=== PATIENT | female | born 1955 | race Caucasian/White ===

== ENCOUNTER 2018-11-11 09:16 | Observation (INO) | payer OTHER ==
[2018-11-11] MEDS ORDERED: DIPHENHYDRAMINE 25 MG TAB/CAP PO PRN (10:44)
[2018-11-11] MEDS ORDERED: LOPERAMIDE HCL 2 MG CAPSULE PO PRN (10:44)
[2018-11-11] MEDS ORDERED: ONDANSETRON 4 MG/2 ML VIAL IV PRN (10:44)
[2018-11-11] MEDS ORDERED: POLYETHYL GLY 3350 17 GM/DOSE PO PRN (10:44)
[2018-11-11] MEDS ORDERED: ACETAMINOPHEN 325 MG TABLET PO PRN (10:44)
[2018-11-11 12:18] LABS: Protime INR 1.02
[2018-11-11 12:41] LABS: Albumin 4.5 g/dL (3.4-5.0); Bilirubin Direct 0.1 mg/dL (0-0.2); Bilirubin Total 0.4 mg/dL (0.2-1.0); Magnesium 2.2 mg/dL (1.8-2.4); Phosphorus 3.4 mg/dL (2.5-4.9); Potassium 3.7 mmol/L (3.5-5.1); Protein, Total 8.2 g/dL (6.4-8.2); Thyroid Stimulating Hormone 2.58 uIU/mL (0.360-3.740)
[2018-11-11] MEDS: clonazePAM 0.5 MG TAB PO PRN (12:41)
[2018-11-11 14:40] LABS: Urine Appearance CLEAR; Urine Bilirubin NEGATIVE (NEG); Urine Blood NEGATIVE (NEG); Urine Color YELLOW; Urine Glucose NEGATIVE (NEG); Urine Protein NEGATIVE (NEG); Urine Specific Gravity 1.015 (1.005-1.030); Urine Urobilinogen 0.2 mg/dL (0.2-1.0); Urine pH 5.5 (5.0-7.0)
[2018-11-11 14:47] LABS: Urine Microscopic Reflex ORDER UMIC
[2018-11-11 15:00] LABS: Urine Bacteria <20 /HPF (<20); Urine Culture Reflex Order NOT NEEDED; Urine RBC <5 /HPF (NONE SEEN)
--- NOTE | 2018-11-11 15:06 | RAD REPORT ---
EXAM DESCRIPTION: Leo Mccollum (2 Views)11/11/2018 2:38 pm CLINICAL HISTORY: Chest pain COMPARISON: 2017 FINDINGS: The lungs appear clear of acute infiltrate. The heart is normal size IMPRESSION: No acute abnormalities displayed
[2018-11-11 15:45] LABS: Absolute Lymphocytes (CBC) 1.4 K/uL (0.7-4.9); Basophils % 0.7 % (0-1.3); Eosinophils % 0.7 % (0-4.4); Hematocrit 37.7 % (36.0-45.0); Lymphocytes % 24.9 % (15.3-44.8); MPV 8.1 fL (7.6-11.3); Monocytes % 7.3 % (3.3-12.3); RBC Red Blood Cell Count 4.32 M/uL (3.86-4.86)
[2018-11-11] MEDS ORDERED: ENOXAPARIN 40 MG/0.4 ML SQ SCH (17:00)
[2018-11-11] MEDS ORDERED: POTASSIUM CL SA 10 MEQ TAB PO ONE (21:00)
[2018-11-12 04:36] LABS: Absolute Lymphocytes (CBC) 2.1 K/uL (0.7-4.9); Basophils % 0.6 % (0-1.3); Hematocrit 36.2 % (36.0-45.0); Lymphocytes % 37.7 % (15.3-44.8); MPV 8.3 fL (7.6-11.3); Monocytes % 9.6 % (3.3-12.3); RBC Red Blood Cell Count 4.17 M/uL (3.86-4.86)
[2018-11-12 04:45] LABS: BUN Blood Urea Nitrogen 16 mg/dL (7-18); Bicarbonate 28 mmol/L (21-32); Glucose Level 94 mg/dL (74-106); Potassium 3.9 mmol/L (3.5-5.1); Sodium Level 141 mmol/L (136-145)
--- NOTE | 2018-11-12 07:38 | EKG ---
Test Date: 2018-11-11 Test Time: 13:33:39 Credit Collections Clerk: RUTH MEASUREMENT RESULTS: Intervals: Rate: 76 UT: 164 QRSD: 102 QT: 414 QTc: 465 [place]: P: 43 UT: 164 QRS: 48 T: 35 INTERPRETIVE STATEMENTS: Normal sinus rhythm Normal ECG Compared to ECG 01/29/2017 23:38:58 Ventricular premature complex(es) no longer present Electronically Signed On 11-12-18 07:36:03 CDT by Walter Yanes
[2018-11-12] MEDS ORDERED: PNEUMOCOCCAL VACCINE 0.5 ML IMVAC ONE (08:00)
[2018-11-12] MEDS: clonazePAM 0.5 MG TAB PO PRN (08:22)
[2018-11-12] MEDS ORDERED: REGADENOSON 0.4 MG/5 ML SYR IV ONE (08:52)
--- NOTE | 2018-11-12 10:15 | RAD REPORT ---
EXAM DESCRIPTION: NM - Rest Stress Cardiac Imaging - 11/12/2018 10:06 am CLINICAL HISTORY: Chest pain COMPARISON: None. TECHNIQUE: The patient was administered approximately 10 mCi of Tc 99m Sestamibi prior to resting SP ECT imaging of the heart. The patient was then administered approximately 30 mCi of Tc 99m Sestamibi following exercise or pharmacologic stress. Multiplanar SPECT images were reviewed. FINDINGS: The end diastolic volume is 106 ml, the end systolic volume is 45 ml, and the ejection fra ction is 58 %. No stress-induced ischemic changes are present. Moderate diminished activity along the inferior wall not clearly different between rest and stress imaging. This is favored to be attenuation artifact fro m the diaphragm rather than scarring. Correlation can be made with history an EKG findings. IMPRESSION: No stress-induced ischemia. Moderate diminished activity along the inferior wall does not change between rest and stress imaging. This is favored to be attenuation artifact rather than scarring. Ventricular volumes and ejection fraction are normal range.
--- NOTE | 2018-11-12 15:25 | TREADPHA ---
DX: CHEST PAIN Date of Study: 11/12/18 Ht: 5 10 Wt: 262 lb 8 oz Consulting Physician: MARIE MEDICATIONS: TYLENOL, KLONOPIN, LOVENOX, ZOFRAN, PROTONIX HISTORY: 62 YEAR OLD FEMALE HERE FOR CHEST PAIN. HISTORY OF GERD. PHYSICIAL EXAMINATION: RESTING B.P.: 121/109 RESTING H.R.: 85 RESTING EKG: NORMAL. PROTOCOL: LEXISCAN EXERCISE TIME: 3:30 B.P. AT [place] STRESS: 157/103 151/97 IMPRESSION: LEXISCAN STRESS TEST PERFORMED. CARDIOLITE INJECTED PER PROTOCOL. NO ARRHYTHMIAS NOTED. DENIES ANY CHEST PAIN. SEE NUCLEAR MEDICINE REPORT.
--- NOTE | 2018-11-12 15:34 | ECHO ---
HEIGHT: 5 ft 10 in WEIGHT: 262 lb 8 oz DATE OF STUDY: 11/12/[address]: Pablito Atkinson MD 2-DIMENSIONAL: YES M.MODE: YES DOPPLER: YES COLOR FLOW: YES TDS: NO PORTABLE: NO DEFINITY: NO BUBBLE STUDY: NO DIAGNOSIS: CHEST PAIN CARDIAC HISTORY: CATHERIZATION: NO SURGERY: NO PROSTHETIC VALVE: NO PACEMAKER: NO MEASUREMENTS (cm) DIASTOLIC (NORMALS) SYSTOLIC (NORMALS) IVSd 1.1 (0.6-1.2) LA Diam 2.8 (1.9-4.0) LVEF 52% LVIDd 4.3 (3.5-5.7) LVIDs 3.2 (2.0-3.5) %FS 26% LVPWd 1.2 (0.6-1.2) Ao Diam 2.5 (2.0-3.7) 2 DIMENSIONAL ASSESSMENT: RIGHT ATRIUM: NORMAL LEFT ATRIUM: NORMAL RIGHT VENTRICLE: NORMAL LEFT VENTRICLE: NORMAL TRICUSPID VALVE: NORMAL MITRAL VALVE: NORMAL PULMONIC VALVE: NORMAL AORTIC VALVE: NORMAL PERICARDIAL EFFUSION: NONE AORTIC ROOT: NORMAL LEFT VENTRICULAR WALL MOTION: NORMAL. DOPPLER/COLOR FLOW: NORMAL. COMMENTS: NORMAL 2D ECHO WITH DOPPLER. NO WALL MOTION ABNORMALITY. NO EFFUSION. TECHNOLOGIST: BEV CAMPOS
--- NOTE | 2018-11-12 21:01 | P.DS ---
Admission Date: 11/11/18 Discharge Date: 11/12/18 Disposition: ROUTINE DISCHARGE Hospital Course: INDIRA IS DOING A LOT BETTER. HER PRICKLY CHEST FEELINGS, DIZZINESS, NOT BEING ABLE TO BREATH ALL CAN BE FROM ANXIETY. SHE WILL DO 24 HOUR URINE AND DLELIER. SHE IS STABLE FOR DC ON LEXAPRO AND KLONIPIN. SHE DID REALLY GREAT ON KLONOPIN. HER ST TEST IS NEGATIVE, CE ARE NEGATIVE AND SO IS ECHO HER D DIMER IS NORMAL. Vital Signs/Physical Exam: Temp Pulse Resp BP Pulse Ox 98.0 F 77 18 134/81 98 11/12/18 12:00 11/12/18 12:00 11/12/18 12:00 11/12/18 12:00 11/12/18 12:00 Laboratory Data at Discharge: WBC 5.6 K/uL (4.3-10.9) 11/12/18 04:01 Hgb 12.2 g/dL (12.0-15.0) 11/12/18 04:01 Hct 36.2 % (36.0-45.0) 11/12/18 04:01 Plt Count 278 K/uL (152-406) 11/12/18 04:01 PT 12.0 SECONDS (9.5-12.5) 11/11/18 11:45 INR 1.02 11/11/18 11:45 APTT 31.1 SECONDS (24.3-36.9) 11/11/18 11:45 Sodium 141 mmol/L (136-145) 11/12/18 04:01 Potassium 3.9 mmol/L (3.5-5.1) 11/12/18 04:01 BUN 16 mg/dL (7-18) 11/12/18 04:01 Creatinine 0.64 mg/dL (0.55-1.3) 11/12/18 04:01 Glucose 94 mg/dL (74-106) 11/12/18 04:01 Phosphorus 3.4 mg/dL (2.5-4.9) 11/11/18 11:45 Magnesium 2.2 mg/dL (1.8-2.4) 11/11/18 11:45 Total Bilirubin 0.4 mg/dL (0.2-1.0) 11/11/18 11:45 AST 14 U/L (15-37) L 11/11/18 11:45 ALT 27 U/L (12-78) 11/11/18 11:45 Alkaline Phosphatase 84 U/L (45-117) 11/11/18 11:45 Troponin I < 0.02 ng/mL (0.0-0.045) 11/12/18 04:01 Home Medications: L. Acidophilus/Dig Enz Cmb 5 [Probiotic-Digestive Enzymes] 1 cap PO DAILY Pantoprazole [Protonix Tab*] 40 mg PO DAILY 11/11/18 Simethicone [Gas Relief] 180 mg PO ONCE PRN MDD 360 11/11/18 Escitalopram [Lexapro] 10 mg PO DAILY #90 tab 11/12/18 clonazePAM [Klonopin] 0.5 mg PO BID #30 tab 11/12/18 New Medications: clonazePAM [Klonopin] 0.5 mg PO BID #30 tab Escitalopram [Lexapro] 10 mg PO DAILY #90 tab Diet: AHA
--- NOTE | 2018-11-13 06:26 | CON ---
Date of Consultation: 11/12/2018 The patient was admitted on 11/11/2018. I saw the patient on 11/12/2018. Reason For Consultation: Chest pain. History Of Present Illness: Ms. Suarez is a 63-year-old white woman, has a history of anxiety disorder . She has a history of sleep apnea. Came in with an episode of palpitations that woke her up, laste d about 2 hours with some atypical chest pain. Has also been having episodes of dizziness. Denied a ny PND, orthopnea, or pedal edema. Denied any syncope. Denied any nausea, vomiting, or diaphoresis. Denied any fever or chills. She denied any excessive use of caffeine. She denied use of diet pill s or allergy pills. By the time I saw her, she was already ruled out for an [place]. Past Medical History: Otherwise negative. Allergies: MULTIPLE AND INCLUDE CODEINE, DIOVAN, STADOL, PHENERGAN, SULFA, AND TALWIN. Medications: She does not take any medications at home. Review of Systems: Negative. Social History: Negative for tobacco, alcohol, or drugs. Family History: Negative. Physical Examination: Vital Signs: Stable. She was afebrile. HEENT: Negative. Neck: Supple with no bruit. Chest: Clear to auscultation and percussion. Cardiac: Revealed a regular rhythm and rate without any murmurs, gallops, or rubs. Abdomen: Benign. Extremities: Revealed no clubbing, cyanosis, or edema. Diagnostic Data: Pretty unremarkable. Her chest x-ray was negative. EKG was negative. Troponin wa s negative. Impression And Plan: 1.Atypical chest pain. 2.Palpitations. 3.Dizziness, probably secondary to benign positional vertigo. 4.Anxiety. An echocardiogram and a Lexiscan are pending for today. Do not think her chest pain is cardiac. Her palpitations need to be evaluated further. It may not be unreasonable to have her wear an event monitor as an outpatient. I will discuss the case further with Dr. Ng. We will see brigitte mari her echo and Lexiscan show before she goes home. BABAR/MODL Voice ID: [id number] Report ID: [id number]
[2018-11-13] MEDS ORDERED: PANTOPRAZOLE 40MG TABLET PO SCH (06:30)
== END 2018-11-12 14:24 | disposition home or self-care (01) ==
LOC: 2ND 10:01
PROVIDERS: ADMIT Internal Medicine; ATTEND Internal Medicine
DX: R07.89 Other chest pain (principal); R00.2 Palpitations; R42 Dizziness and giddiness; F41.9 Anxiety disorder, unspecified; G47.30 Sleep apnea, unspecified; Z23 Encounter for immunization
CPT/HCPCS: 93005; 93017; 93306; 85025 ×2; 80048 ×2; 36415 ×2; 83735; 84100; 85610; 85379; 80076; 85730; 84443; 84484 ×3; 82607; 82306; 83880; 71046; 90471; 90670; 78452; J2785; A9500; G0379; G0378; 81003; 81015; G0009; J1650

== ENCOUNTER 2019-01-14 07:47 | Observation (INO) | payer OTHER ==
[2019-01-14 08:09] LABS: Basophils % 0.9 % (0-1.3); Hematocrit 37.4 % (36.0-45.0); Lymphocytes % 43.1 % (15.3-44.8); MPV 8.5 fL (7.6-11.3); RBC Red Blood Cell Count 4.36 M/uL (3.86-4.86)
[2019-01-14 08:13] LABS: Protime INR 1.08
[2019-01-14] MEDS ORDERED: LORazepam 2 MG/ML VIAL ONE (08:15)
[2019-01-14] MEDS ORDERED: NA CHLORIDE 0.9% 1,000 ML ONE (08:15)
[2019-01-14 08:33] LABS: ALT/SGPT 21 U/L (12-78); AST/SGOT 9 U/L (15-37); Albumin 4.3 g/dL (3.4-5.0); Alkaline Phosphatase 69 U/L (45-117); BUN Blood Urea Nitrogen 12 mg/dL (7-18); Bicarbonate 25 mmol/L (21-32); Bilirubin Direct 0.2 mg/dL (0-0.2); Bilirubin Total 0.5 mg/dL (0.2-1.0); Glucose Level 89 mg/dL (74-106); Magnesium 2.1 mg/dL (1.8-2.4); NT PRO-BNP 18 pg/mL (<125); Potassium 3.3 mmol/L (3.5-5.1); Protein, Total 7.8 g/dL (6.4-8.2); Sodium Level 141 mmol/L (136-145); Troponin (Emerg Dept Use Only) < 0.02 ng/mL (0.0-0.045)
--- NOTE | 2019-01-14 09:01 | EDPHYS ---
Physician Documentation [facility] Name: Alessandra Suarez Age: 63 yrs Sex: Female : 1955 Arrival Date: 01/14/2019 Time: 07:48 Bed 7 Private MD: Surendra Ng V ED Physician Alyce Seay HPI: 01/14 08:57 This 63 yrs old Female presents to ER via Ambulatory with complaints of Chest ma2 Pain, Shortness Of Breath. 08:57 The patient or guardian reports chest pain that is located primarily in the substernal ma2 area. Onset: suddenly, 1 day(s) ago. Associated signs and symptoms: Pertinent negatives: cough, dizziness, lower extremity pain, lower extremity swelling. The chest pain is described as aching. Severity of pain: At its worst the pain was moderate in the emergency department the pain has resolved. Historical: - Allergies: 07:56 Codeine; ss 07:56 Darvon; ss 07:56 Phenergan; ss 07:56 Stadol; ss 07:56 Sulfa (Sulfonamide Antibiotics); ss 07:56 Talwin; ss 07:56 teramycin; ss - Home Meds: 18:10 alprazolam 0.25 mg Oral TbDL 1 tab as needed [Active]; bp - PMHx: 07:56 Anxiety; ss - PSHx: 07:56 ; Appendectomy; ss - Immunization history:: Adult Immunizations up to date. - Social history:: Smoking status: Patient/guardian denies using tobacco, Patient/guardian denies using alcohol, street drugs, The patient lives with family. - Ebola Screening: : Patient denies exposure to infectious person Patient denies travel to an Ebola-affected area in the 21 days before illness onset. - Family history:: not pertinent. ROS: 08:57 Constitutional: Negative for fever, chills, and weight loss. ma2 08:57 All other systems are negative. Exam: 08:57 Constitutional: This is a well developed, well nourished patient who is awake, alert, ma2 and in no acute distress. Chest/axilla: Normal chest wall appearance and motion. Nontender with no deformity. No lesions are appreciated. Cardiovascular: Regular rate and rhythm with a normal S1 and S2. No gallops, murmurs, or rubs. Normal PMI, no JVD. No pulse deficits. Respiratory: Lungs have equal breath sounds bilaterally, clear to auscultation and percussion. No rales, rhonchi or wheezes noted. No increased work of breathing, no retractions or nasal flaring. Abdomen/GI: Soft, non-tender, with normal bowel sounds. No distension or tympany. No guarding or rebound. No evidence of tenderness throughout. Vital Signs: 07:56 BP 156 / 93; Pulse 72; Resp 16; Pulse Ox 100% on R/A; Weight 111.58 kg; Height 5 ft. 10 ss in. (177.80 cm); Pain 0/10; 08:56 BP 126 / 91; Pulse 64; Resp 17; Pulse Ox 98% ; bp 10:04 BP 136 / 86; Pulse 71; Resp 14; Pulse Ox 97% ; bp 10:49 Temp 98(O); bp 11:00 BP 122 / 79; Pulse 68; Resp 16; Pulse Ox 99% ; bp 12:00 BP 121 / 84; Pulse 65; Resp 18; Pulse Ox 99% ; bp 13:00 BP 138 / 82; Pulse 65; Resp 17; Pulse Ox 100% ; bp 14:00 BP 138 / 86; Pulse 73; Resp 16; Pulse Ox 100% ; bp 15:00 BP 137 / 90; Pulse 69; Resp 16; Pulse Ox 96% ; bp 16:00 BP 108 / 82; Pulse 69; Resp 14; Pulse Ox 97% ; bp 17:00 BP 126 / 73; Pulse 83; Resp 16; Pulse Ox 97% ; bp 18:28 BP 133 / 86; Pulse 73; Resp 17; Temp 98; Pulse Ox 100% ; bp 07:56 Body Mass Index 35.30 (111.58 kg, 177.80 cm) ss MDM: 07:55 Patient medically screened. ma2 08:57 Differential diagnosis: abnormal EKG, acute pericarditis, anxiety, coronary artery ma2 disease. Data reviewed: vital signs, nurses notes. Counseling: I had a detailed discussion with the patient and/or guardian regarding: the historical points, exam findings, and any diagnostic results supporting the discharge/admit diagnosis, the presence of at least one elevated blood pressure reading (>120/80) during this emergency department visit, patient request to be transferred to [place], will initiate non emergency transfer. 17:43 ED course: dr. ng advise for admission as per patient request both [facility] and [address] denied d/t no capacity and was waiting on [facility] as they accepted but waiting for final bed.. now she agree to be admitted here . 01/14 07:56 Order name: Basic Metabolic Panel; Complete Time: 08:47 ma2 01/14 07:56 Order name: CBC with Diff; Complete Time: 08:47 ma2 01/14 07:56 Order name: LFT's; Complete Time: 08:47 ma2 01/14 07:56 Order name: Magnesium; Complete Time: 08:47 ma2 01/14 07:56 Order name: NT PRO-BNP; Complete Time: 08:47 ma2 01/14 07:56 Order name: PT-INR; Complete Time: 08:47 ma2 01/14 07:56 Order name: Troponin (emerg Dept Use Only); Complete Time: 08:47 ma2 01/14 17:54 Order name: Basic Metabolic Panel EDKS 01/14 17:54 Order name: Basic Metabolic Panel [facility] 01/14 17:54 Order name: CBC with Automated Diff EDKS 01/14 17:54 Order name: CBC with Automated Diff EDMS 01/14 17:54 Order name: Troponin I EDKS 01/14 17:54 Order name: Troponin I EDKS 01/14 17:54 Order name: Troponin I [facility] 01/14 07:56 Order name: EKG; Complete Time: 07:57 ma2 01/14 07:56 Order name: Cardiac monitoring; Complete Time: 08:10 ma2 01/14 07:56 Order name: EKG - Nurse/Tech; Complete Time: 08:10 ma2 01/14 14:10 Order name: Diet Regular; Complete Time: 14:10 kj1 01/14 14:11 Order name: Diet Ada 1800 Cyrus; Complete Time: 14:11 jl7 01/14 17:52 Order name: Diet Ada 1800 Cyrus; Complete Time: 17:52 bp 01/14 17:54 Order name: Regular EDMS 01/14 17:54 Order name: EKG Electrocardiogram EDKS 01/14 17:54 Order name: EKG Electrocardiogram EDKS 01/14 17:54 Order name: EKG Electrocardiogram EDKS 01/14 17:54 Order name: EKG Electrocardiogram [facility] 01/14 17:59 Order name: Urine Dipstick--Ancillary (enter results) 01/14 18:25 Order name: Urine Dipstick-Ancillary [facility] 01/14 07:56 Order name: IV Saline Lock; Complete Time: 08:03 [facility] 01/14 07:56 Order name: Labs collected and sent; Complete Time: 08:10 [facility] 01/14 07:56 Order name: O2 Per Protocol; Complete Time: 08:10 [facility] 01/14 07:56 Order name: O2 Sat Monitoring; Complete Time: 08:10 [facility] 01/14 17:53 Order name: Urine Dipstick-Ancillary (obtain specimen); Complete Time: 17:55 bp Administered Medications: 08:10 Drug: Ativan 1 mg Route: IVP; Site: left antecubital; bp 11:24 Follow up: Response: Anxiety decreased bp 08:10 Drug: NS 0.9% 1000 ml Route: IV; Rate: 1 bolus; Site: left antecubital; bp 09:30 Follow up: IV Status: Completed infusion; IV Intake: 1000ml bp Disposition: 01/14/19 17:45 Hospitalization ordered by Surendra Ng for Observation. Preliminary diagnosis is Chest pain, unspecified. - Bed requested for Telemetry/MedSurg (observation). - Status is Observation. bp - Condition is Stable. - Problem is new. - Symptoms are unchanged. UTI on Admission? No Signatures: Dispatcher [facility] Leticia Louis RN RN dw Smirch, Shelby, RN RN ss Peltier, Brian, RN RN bp Alzahri, Mohammad, MD MD ma2 Corrections: (The following items were deleted from the chart) : 07:56 Chest Single View+RAD.RAD.BRZ ordered. [facility] 17:44 08:59 01/14/2019 08:59 Transfer ordered to [facility]. Diagnosis is ma2 Chest pain, unspecified. Reason for transfer: Higher level of care. Accepting physician is chest pain. Condition is Stable. Problem is new. Symptoms are unchanged. ma2 18:07 17:45 Hospitalization Ordered by Surendra Ng MD for Observation. Preliminary diagnosis dw is Chest pain, unspecified. Bed requested for Telemetry/MedSurg (observation). Status is Observation. Condition is Stable. Problem is new. Symptoms are unchanged. UTI on Admission? No. ma2 18:29 18:07 01/14/2019 17:45 Hospitalization Ordered by Surendra Ng MD for Observation. bp Preliminary diagnosis is Chest pain, unspecified. Bed requested for Telemetry/MedSurg (observation). Status is Observation. Condition is Stable. Problem is new. Symptoms are unchanged. UTI on Admission? No. dw
--- NOTE | 2019-01-14 09:01 | ER ---
Nurse's Notes [facility] Name: Alessandra Suarez Age: 63 yrs Sex: Female : 1955 Arrival Date: 01/14/2019 Time: 07:48 Bed 7 Private MD: Surendra Ng V Diagnosis: Chest pain, unspecified Presentation: 01/14 07:54 Presenting complaint: Patient states: Episodes of "racing heart" that began a few days ss ago and are becoming more frequent. Patient also c/o severe gassiness. Transition of care: patient was not received from another setting of care. Onset of symptoms is unknown. Risk Assessment: Do you want to hurt yourself or someone else? Patient reports no desire to harm self or others. Initial Sepsis Screen: Does the patient meet any 2 criteria? No. Patient's initial sepsis screen is negative. Does the patient have a suspected source of infection? No. Patient's initial sepsis screen is negative. Care prior to arrival: None. 07:54 Method Of Arrival: Ambulatory 07:54 Acuity: KRISTA 3 ss Triage Assessment: 08:00 General: Appears in no apparent distress. comfortable, obese, Behavior is cooperative, bp appropriate for age, anxious. Pain: Complains of pain in chest. EENT: No deficits noted. Neuro: No deficits noted. Cardiovascular: No deficits noted. Respiratory: No deficits noted. GI: No signs and/or symptoms were reported involving the gastrointestinal system. : No signs and/or symptoms were reported regarding the genitourinary system. Derm: No deficits noted. Musculoskeletal: No deficits noted. Historical: - Allergies: 07:56 Codeine; ss 07:56 Darvon; ss 07:56 Phenergan; ss 07:56 Stadol; ss 07:56 Sulfa (Sulfonamide Antibiotics); ss 07:56 Talwin; ss 07:56 teramycin; ss - Home Meds: 18:10 alprazolam 0.25 mg Oral TbDL 1 tab as needed [Active]; bp - PMHx: 07:56 Anxiety; ss - PSHx: 07:56 ; Appendectomy; ss - Immunization history:: Adult Immunizations up to date. - Social history:: Smoking status: Patient/guardian denies using tobacco, Patient/guardian denies using alcohol, street drugs, The patient lives with family. - Ebola Screening: : Patient denies exposure to infectious person Patient denies travel to an Ebola-affected area in the 21 days before illness onset. - Family history:: not pertinent. Screenin:56 Abuse screen: Denies threats or abuse. Denies injuries from another. Nutritional bp screening: No deficits noted. Tuberculosis screening: No symptoms or risk factors identified. Fall Risk None identified. Assessment: 07:56 General: SEE TRIAGE NOTE. bp 08:00 Pain: Pain does not radiate. Pain began suddenly. bp 08:56 Reassessment: ALL CURRENT ORDERS COMPLETED, RESULTS PENDING FOR DISPO. SR ON MONITOR. bp 10:05 Reassessment: [facility], SABIANISM RESPONSE PENDING. bp 10:51 Reassessment: AVE INFORMATION TO [facility] [facility] FROM [facility]. bp 11:23 Reassessment: [facility] ACCEPTING TRANSFER, BED ASSIGNMENT PENDING. bp 12:49 Reassessment: NO ACUTE S/S, VS STABLE ON MONITOR. NO BED ASSIGNMENT FOR TRANSFER AT THIS TIME. 14:00 Reassessment: Patient appears in no apparent distress at this time. Patient is alert, bp oriented x 3, equal unlabored respirations, skin warm/dry/pink. 15:00 Reassessment: PT AMBULATING UNIT, TRANSFER REMAINS IN PROCESS. bp 16:00 Reassessment: TRANSFER IN PROCESS, NO BED AVAILABLE AT THIS TIME. VS STABLE ON MONITOR. bp 17:30 Reassessment: DR NG AT B/S FOR C/S. PT AMENABLE TO ADMIT VS TRANSFER. PER DR NG, bp DR SALAZAR TO PERFORM ANGIO TOMORROW AND HIDA SCAN DURING ADMIT. Vital Signs: 07:56 BP 156 / 93; Pulse 72; Resp 16; Pulse Ox 100% on R/A; Weight 111.58 kg; Height 5 ft. 10 ss in. (177.80 cm); Pain 0/10; 08:56 BP 126 / 91; Pulse 64; Resp 17; Pulse Ox 98% ; bp 10:04 BP 136 / 86; Pulse 71; Resp 14; Pulse Ox 97% ; bp 10:49 Temp 98(O); bp 11:00 BP 122 / 79; Pulse 68; Resp 16; Pulse Ox 99% ; bp 12:00 BP 121 / 84; Pulse 65; Resp 18; Pulse Ox 99% ; bp 13:00 BP 138 / 82; Pulse 65; Resp 17; Pulse Ox 100% ; bp 14:00 BP 138 / 86; Pulse 73; Resp 16; Pulse Ox 100% ; bp 15:00 BP 137 / 90; Pulse 69; Resp 16; Pulse Ox 96% ; bp 16:00 BP 108 / 82; Pulse 69; Resp 14; Pulse Ox 97% ; bp 17:00 BP 126 / 73; Pulse 83; Resp 16; Pulse Ox 97% ; bp 18:28 BP 133 / 86; Pulse 73; Resp 17; Temp 98; Pulse Ox 100% ; bp 07:56 Body Mass Index 35.30 (111.58 kg, 177.80 cm) ED Course: 07:48 Patient arrived in ED. ag5 07:48 Surendra Ng MD is Private Physician. ag5 07:51 Matthew Perez, SIMONE is Primary Nurse. bp 07:55 Alyce Seay MD is Attending Physician. ma2 07:56 Triage completed. ss 07:56 Arm band placed on right wrist. ss 07:56 Patient has correct armband on for positive identification. Bed in low position. Call bp light in reach. Side rails up X 1. Adult w/ patient. monitor worker on. Pulse ox on. NIBP on. 07:59 EKG done, by staging technician. reviewed by Alyce Seay MD. at1 08:03 Initial lab(s) drawn, by ks, sent to lab. Inserted saline lock: 22 gauge in left kj1 antecubital area, using aseptic technique. 10:08 attempted transfer to [facility], pt was denied, due to "[facility] having cardiology that is capable of taking care of patient" per leonor hudson. 10:13 attempted transfer to [facility], pt was denied due to lack of capacity. bd 16:31 spoke with laurie at [facility] [place], pt is on waiting list. bd 17:45 Surendra Ng MD is Hospitalizing Provider. ma2 18:09 No provider procedures requiring assistance completed. Patient admitted, IV remains in bp place. Patient maintains SpO2 saturation greater than 95% on room air. Administered Medications: 08:10 Drug: Ativan 1 mg Route: IVP; Site: left antecubital; bp 11:24 Follow up: Response: Anxiety decreased bp 08:10 Drug: NS 0.9% 1000 ml Route: IV; Rate: 1 bolus; Site: left antecubital; bp 09:30 Follow up: IV Status: Completed infusion; IV Intake: 1000ml bp Intake: 09:30 IV: 1000ml; Total: 1000ml. bp Outcome: 08:59 ER care complete, transfer ordered by . ma2 17:45 Decision to Hospitalize by Provider. ma2 18:24 Admitted to Tele accompanied by tech, via wheelchair, room 415, with chart, Report bp called to NAT NICHOLS 18:27 Condition: stable bp 18:27 Instructed on the need for admit. 18:29 Patient left the ED. bp Signatures: Deepali Morin Shelby, SIMONE RN ss Brittanie Armstrong, tool supervisor EKG Tat1 Matthew Perez RN RN bp Alyce Seay MD MD ma2 Arun Brandon ag5 Sofía Sawant kj1
--- NOTE | 2019-01-14 11:07 | EKG ---
Test Date: 2019-01-14 Test Time: 07:53:01 Adult Parole Officer: MARIELENA MEASUREMENT RESULTS: Intervals: Rate: 75 RI: 138 QRSD: 102 QT: 416 QTc: 464 [place]: P: 39 RI: 138 QRS: 58 T: 44 INTERPRETIVE STATEMENTS: Normal sinus rhythm Normal ECG Compared to ECG 11/11/2018 13:33:39 No significant changes Electronically Signed On 01-14-19 11:05:57 CDT by Pablito Atkinson
[2019-01-14 18:24] LABS: Urine Blood NEGATIVE (NEG); Urine Glucose NEGATIVE (NEG); Urine Protein NEGATIVE (NEG)
[2019-01-14] MEDS ORDERED: SODIUM CHLORIDE 0.9% 10ML INJ IV PRN (20:30)
[2019-01-14] MEDS ORDERED: CLIDINIUM/CHLORDIAZEPOX 1 CAP PO PRN (20:30)
--- NOTE | 2019-01-14 22:05 | P.HP ---
Certification for Inpatient Patient admitted to: Observation With expected LOS: <2 Midnights Practitioner: I am a practitioner with admitting privileges, knowledge of patient current condition, hospital course, and medical plan of care. Services: Services provided to patient in accordance with Admission requirements found in Title 42 Section 412.3 of the Code of Federal Regulations Patient History Date of Service: 01/14/19 Reason for admission: CHEST PAIN History of Present Illness: INDIRA HAS HAD THIS ATYPICAL CHEST PAIN FOR A MONTH OR SO. SHE WAKES UP WITH CHEST PAIN THAT IS ATYPICAL. PAIN IS IN PRECORDIUM, SHARP OVER 15 MINUTES AND SHE CAN'T BREATH OR MOVE WHEN THAT HAPPENS WELL. SHE HAS ANXIETY BY HISTORY BUT SHE DENIES FOR THISEPISODES. 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 HER EKG AND CE ARE TOTALLY NORMAL. Allergies butorphanol tartrate [From Stadol] Allergy (Verified 11/11/18 12:36) Shortness of breath codeine Allergy (Verified 11/11/18 12:36) Unknown meperidine HCl [From Demerol] Allergy (Verified 11/11/18 12:36) Unknown morphine Allergy (Verified 11/11/18 12:36) Anaphylaxis oxytetracycline [From Terramycin] Allergy (Verified 11/11/18 12:36) vomiting oxytetracycline HCl [From Terramycin] Allergy (Verified 11/11/18 12:36) vomiting peanut Allergy (Verified 11/11/18 12:36) Shortness of breath promethazine [From Phenergan] Allergy (Verified 11/11/18 12:36) Unknown propoxyphene HCl [From Darvon] Allergy (Verified 11/11/18 12:36) Anaphylaxis shellfish derived Allergy (Verified 11/11/18 12:36) Shortness of breath Sulfa (Sulfonamide Antibiotics) Allergy (Verified 11/11/18 12:36) Unknown Bees Allergy (Uncoded 11/11/18 12:36) Unknown taramycin Allergy (Uncoded 11/11/18 12:36) Unknown Home Medications: L. Acidophilus/Dig Enz Cmb 5 [Probiotic-Digestive Enzymes] 1 cap PO DAILY Pantoprazole [Protonix Tab*] 40 mg PO DAILY 11/11/18 Cholecalciferol (Vitamin D3) [Vitamin D3] 2,000 iu PO DAILY 01/14/19 Docusate Sodium [Stool Softener] 100 mg PO DAILY 01/14/19 Ranitidine [Zantac] 150 mg PO BEDTIME 01/14/19 clonazePAM [Klonopin] 0.5 mg PO BID PRN 01/14/19 - Past Medical/Surgical History Diabetic: No -: HTN -: Sleep apnea -: c section -: lumectomy both breast -: toe sx - Social History Alcohol use: No CD- Drugs: No Caffeine use: Yes Review of Systems 10-point ROS is otherwise unremarkable Physical Examination - Vital Signs Temperature: 97.4 F Blood Pressure: 126/65 Pulse: 80 Respirations: 18 Pulse Ox (%): 94 - Physical Exam General: Mild distress, Obese HEENT: Atraumatic, PERRLA, Mucous membr. moist/pink, EOMI, Sclerae nonicteric Neck: Supple, 2+ carotid pulse no bruit, No LAD, Without JVD or thyroid abnormality Respiratory: Clear to auscultation bilaterally, Normal air movement Cardiovascular: Regular rate/rhythm, Normal S1 S2 Gastrointestinal: Normal bowel sounds, No tenderness Musculoskeletal: No tenderness Integumentary: No rashes Neurological: Normal gait, Normal speech, Normal strength at 5/5 x4 extr, Normal tone, Normal affect Lymphatics: No axilla or inguinal lymphadenopathy - Studies Laboratory Data (last 24 hrs) 01/14/19 08:00: PT 12.7 H, INR 1.08 01/14/19 08:00: WBC 4.5, Hgb 13.3, Hct 37.4, Plt Count 265 01/14/19 08:00: Sodium 141, Potassium 3.3 L, BUN 12, Creatinine 0.67, Glucose 89 , Magnesium 2.1, Total Bilirubin 0.5, AST 9 L, ALT 21, Alkaline Phosphatase 69 Assessment and Plan - Problems (Diagnosis) (1) Atypical chest pain Current Visit: Yes Status: Acute Plan: THIS PAIN IS NOT CARDIAC MOST LIKLEY. EKG IS NORMAL. THIS CAN BE FROM IBS WITH ANXIETY. START LIBRAX QID. SHE IS MEDICALLY STABLE. TWO HOSPITALS REJECTED HER TRANSFER FROM ER. SHE WAITED IN ER FOR 6 HOURS AND THEN I CONVINCED HER TO HAVE DR. SALAZAR DO CATH IF HE WOULD. HER ST TEST WS NEGATIVE. SONOGRAM IS NEGATIVE AND EGD IS NEGATIVE. EVENTHOUGH SHE DENIES ANXIETY I THINK IT IS A BIG FACTOR HERE. - Advance Directives Does patient have a Living Will: Yes Does patient have a Durable POA for Healthcare: Yes
[2019-01-14] MEDS: PANTOPRAZOLE 40 MG INJ IVP SCH (23:00)
[2019-01-14 23:48] VITALS: BMI 35.3
[2019-01-15] MEDS: CLIDINIUM/CHLORDIAZEPOX 1 CAP PO SCH ×2 (06:00→12:54)
[2019-01-15 06:01] LABS: Absolute Lymphocytes (CBC) 1.6 K/uL (0.7-4.9); Basophils % 0.7 % (0-1.3); Hematocrit 32.9 % (36.0-45.0); Lymphocytes % 38.8 % (15.3-44.8); MPV 8.8 fL (7.6-11.3); RBC Red Blood Cell Count 3.82 M/uL (3.86-4.86)
[2019-01-15 06:09] LABS: BUN Blood Urea Nitrogen 11 mg/dL (7-18); Bicarbonate 28 mmol/L (21-32); Glucose Level 90 mg/dL (74-106); Magnesium 2.1 mg/dL (1.8-2.4); Potassium 3.4 mmol/L (3.5-5.1); Sodium Level 144 mmol/L (136-145)
[2019-01-15] MEDS ORDERED: POTASSIUM CL SA 10 MEQ TAB PO ONE ×2 (07:30→14:05)
--- NOTE | 2019-01-15 08:13 | RAD REPORT ---
EXAM DESCRIPTION: US - Renal Ultrasound-Complete - 01/15/2019 7:51 am CLINICAL HISTORY: . Abdominal pain COMPARISON: 2017 CT scan December 2018 ultrasound FINDINGS: The right kidney measures 11 cm with a normal echotexture. The left kidney measures 12 cm with a normal echotexture. 3 centimeter fluid collection in the region of the left renal pelvis likely represents a cyst rather than a dilated renal pelvis Hydronephrosis is not suspected IMPRESSION: 3 centimeter left renal cyst.
[2019-01-15] MEDS ORDERED: DOCUSATE NA 100 MG CAP PO SCH (09:00)
[2019-01-15] MEDS ORDERED: ASPIRIN EC 81 MG TAB PO SCH (09:00)
[2019-01-15] MEDS ORDERED: NA CHLORIDE 0.9% 250 ML IV ONE (09:16)
[2019-01-15] MEDS: KCL 20 MEQ/100 mL IVPB 20 MEQ/100 ML BAG IV SCH ×2 (09:35→10:00)
[2019-01-15] MEDS: PANTOPRAZOLE 40 MG INJ IVP SCH (09:36)
[2019-01-15 10:21] VITALS: O2SAT 95
--- NOTE | 2019-01-15 13:29 | RAD REPORT ---
EXAM DESCRIPTION: NM - Hepatobiliary System W/ Ph - 01/15/2019 12:45 pm CLINICAL HISTORY: Epigastric chest pain COMPARISON: <Comparisons> TECHNIQUE: The patient was administered 6.2 mCi Tc99m Choletec. Imaging of the right upper quadrant was performed initially for up to 60 minutes. Gallbladder ejection fraction determination was then performed utilizing synthetic 2.2 mgm CCK over a slow 30 minute infusion. FINDINGS: Normal hepatic uptake and excretion with appropriate clearance of background blood pool ac tivity. Normal visualization of biliary and small bowel activity. Gallbladder visualizes within normal time limits. The calculated ejection fraction is 22% (normal gre ater than 35%). Subjective pain reported by the patient: Pre-procedure - none During or subsequent to synthetic CCK infusion - none IMPRESSION: Patient cystic duct and patent sphincter of Oddi. No delay in visualization of the gallb ladder, biliary tree, or duodenum. Ejection fraction is 22% (normal greater than 35%). Subjective patient pain assessment as detailed above.
[2019-01-15 13:49] VITALS: BP 135/81; TEMP 96.8
--- NOTE | 2019-01-15 15:39 | P.DS ---
Admission Date: 01/14/19 Discharge Date: 01/15/19 Disposition: ROUTINE DISCHARGE Discharge Condition: FAIR Reason for Admission: CHEST PAIN - Problems (1) Atypical chest pain Current Visit: Yes Status: Acute Brief History of Present Illness: INDIRA HAS HAD THIS ATYPICAL CHEST PAIN FOR A MONTH OR SO. SHE WAKES UP WITH CHEST PAIN THAT IS ATYPICAL. PAIN IS IN PRECORDIUM, SHARP OVER 15 MINUTES AND SHE CAN'T BREATH OR MOVE WHEN THAT HAPPENS WELL. SHE HAS ANXIETY BY HISTORY BUT SHE DENIES FOR THIS EPISODES. 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 HER EKG AND CE ARE TOTALLY NORMAL. INDIRA HAS TOELRATED LIBRAX WELL. SHE HAS SLEPT AFTER LUNCH, SHE IS ABLE TO EAT. I EXPLAINED THE WHOLE PLAN TO . HIDA IS MILD POS FOR ELENA DYSKINESIA. I WOULD ALSO LIKE GASTRIC EMPTYING STUDY BEFORE DECISION. DR. SALAZAR THINKS THAT THERE IS NO CARDIAC ISSUE BUT TO SETTLE THE CASE IF TRIAL OF LIBRAX AND OTHER STUDIES FAIL HE WILL DO CATH. SHE IS STABLE FOR DC. Vital Signs/Physical Exam: Temp Pulse Resp BP Pulse Ox 96.8 F 68 18 135/81 99 01/15/19 12:00 01/15/19 12:00 01/15/19 12:00 01/15/19 12:00 01/15/19 12:00 Laboratory Data at Discharge: WBC 4.2 K/uL (4.3-10.9) L 01/15/19 05:16 Hgb 11.4 g/dL (12.0-15.0) L 01/15/19 05:16 Hct 32.9 % (36.0-45.0) L 01/15/19 05:16 Plt Count 229 K/uL (152-406) 01/15/19 05:16 PT 12.7 SECONDS (9.5-12.5) H 01/14/19 08:00 INR 1.08 01/14/19 08:00 Sodium 144 mmol/L (136-145) 01/15/19 05:16 Potassium 3.4 mmol/L (3.5-5.1) L 01/15/19 05:16 BUN 11 mg/dL (7-18) 01/15/19 05:16 Creatinine 0.62 mg/dL (0.55-1.3) 01/15/19 05:16 Glucose 90 mg/dL (74-106) 01/15/19 05:16 Magnesium 2.1 mg/dL (1.8-2.4) 01/15/19 05:16 Total Bilirubin 0.5 mg/dL (0.2-1.0) 01/14/19 08:00 AST 9 U/L (15-37) L 01/14/19 08:00 ALT 21 U/L (12-78) 01/14/19 08:00 Alkaline Phosphatase 69 U/L (45-117) 01/14/19 08:00 Troponin I < 0.02 ng/mL (0.0-0.045) 01/14/19 23:16 Home Medications: L. Acidophilus/Dig Enz Cmb 5 [Probiotic-Digestive Enzymes] 1 cap PO DAILY Pantoprazole [Protonix Tab*] 40 mg PO DAILY 11/11/18 Cholecalciferol (Vitamin D3) [Vitamin D3] 2,000 iu PO DAILY 01/14/19 Docusate Sodium [Stool Softener] 100 mg PO DAILY 01/14/19 Ranitidine [Zantac*] 150 mg PO BEDTIME 01/14/19 Clidinium/Chlordiazepox [Librax*] 1 cap PO BID #30 cap 01/15/19 New Medications: Clidinium/Chlordiazepox [Librax*] 1 cap PO BID #30 cap
--- NOTE | 2019-01-15 18:06 | CON ---
Date of Consultation: 01/15/2019 Patient was admitted by Dr. Ng on 01/14/2019. I saw the patient on 01/15/2019. Reason For Consultation: Atypical chest pain. History Of Present Illness: Ms. Suarez is a patient whom we saw in 11/2018, where she underwent a norm al echocardiogram and normal stress test. She was found at that time to have mild hydronephrosis on the left. Has not seen Nephrology for that. She came in with atypical chest pain. Mostly bloating substernal mid epigastric chest pain, radiating to the back, and occasionally to the upper chest with some nausea, shortness of breath, diaphoresis, extreme belching. She denied any syncope, denied any palpitation. Workup so far included potassium of 3.3. Her creatinine was 0.67. Her potassium was low, the last time she was here. She had a normal chest x-ray, normal EKG, and normal troponin so fa r. Past Medical History: Includes anxiety. Review of Systems: Positive for weight loss. Medications: Her medications at home include: 1.Zantac. 2.Klonopin. 3.Protonix. Allergies: SHE IS ALLERGIC TO MORPHINE, DEMEROL, AND PEANUTS. Physical Examination: Vital Signs: Stable. She was afebrile. General: She is moderately obese, sinus rhythm, no acute distress. Still complained of belching. S he was walking around to improve that. HEENT: Negative. Neck: Supple without bruit, lymphadenopathy, JVD, or thyromegaly. Chest: Clear to auscultation and percussion. Cardiac: Regular rhythm and rate. No murmurs, gallops, or rubs. Abdomen: Benign. Extremities: No clubbing, cyanosis, or edema. Diagnostic Data: As stated earlier. Impression And Plan: symptoms certainly do not sound very cardiac, although I am concerne d about the fact that they are substernal, that radiating to the back associated with some nausea, di aphoresis, some shortness of breath, does not usually exertional. She has already had a normal echo and a normal stress test. I certainly do not recommend repeating those. Dr. Ng had ordered a HID A scan and a gallbladder ultrasound. I think if both of those are normal, I think a heart catheteriz ation may not be unreasonable to find the source of her symptoms. Also, getting to have an event mon itor as an outpatient would be reasonable. The case was discussed with Dr. Ng. We will await our workup for GI for now. TREY Voice ID: [id number] Report ID: [id number]
== END 2019-01-15 16:35 | disposition home or self-care (01) ==
LOC: ER 07:47 → ERHOLD 17:51 → 4TH 18:25
PROVIDERS: ADMIT Internal Medicine; ATTEND Internal Medicine
DX: R07.89 Other chest pain (principal); I10 Essential (primary) hypertension; G47.30 Sleep apnea, unspecified; F41.9 Anxiety disorder, unspecified
CPT/HCPCS: 96361; 93005; 85025 ×2; 80048 ×2; 36415; 83735 ×2; 85610; 80076; 81003; 84484 ×3; 83880; 76770; 78227; 96374; 99285; C9113 ×2; J7030; J2805; A9537; G0378 ×2

== ENCOUNTER 2019-01-27 08:02 | Day surgery (SDC) | payer OTHER ==
[2019-01-25 16:23] LABS: Absolute Lymphocytes (CBC) 1.7 K/uL (0.7-4.9); Basophils % 0.8 % (0-1.3); Hematocrit 34.2 % (36.0-45.0); Lymphocytes % 32.9 % (15.3-44.8); MPV 9.1 fL (7.6-11.3); RBC Red Blood Cell Count 3.97 M/uL (3.86-4.86)
[2019-01-25 18:32] LABS: ALT/SGPT 23 U/L (12-78); AST/SGOT 13 U/L (15-37); Albumin 3.9 g/dL (3.4-5.0); Alkaline Phosphatase 66 U/L (45-117); Amylase Level 43 U/L (25-115); Bilirubin Direct < 0.1 mg/dL (0-0.2); Bilirubin Total 0.3 mg/dL (0.2-1.0); Lipase 94 U/L (73-393); Protein, Total 7.3 g/dL (6.4-8.2)
[2019-01-27] MEDS ORDERED: CEFOXITIN/SWI 1gm 1 GM/10 ML SYR ONE (08:12)
[2019-01-27] MEDS ORDERED: Ringers Lactate 1,000 ML IV ONE (08:12)
[2019-01-27] MEDS ORDERED: PROPOFOL 200 MG/20 ML VIAL IV ONE ×2 (08:20→09:10)
[2019-01-27] MEDS ORDERED: LIDOCAINE 1% MPF 5 ML VIAL ONE (08:20)
[2019-01-27] MEDS ORDERED: ROCURONIUM 50 MG/5 ML VIAL IV ONE (08:20)
[2019-01-27] MEDS ORDERED: FENTANYL CITR 100 MCG/2 ML ONE ×2 (08:20→09:10)
[2019-01-27] MEDS ORDERED: MIDAZOLAM HCL 2 MG/2 ML INJ ONE ×3 (08:21→09:36)
[2019-01-27] MEDS ORDERED: LIDOCAINE 2% MPF 5 ML VIAL ONE (09:10)
[2019-01-27] MEDS ORDERED: NEOSTIGMINE 1 MG/ML -10 ML VIAL ONE (09:37)
[2019-01-27] MEDS ORDERED: ONDANSETRON 4 MG/2 ML VIAL ONE ×3 (09:37→11:09)
[2019-01-27] MEDS ORDERED: KETOROLAC 30 MG/ML INJ ONE (09:37)
[2019-01-27] MEDS ORDERED: GLYCOPYRROLATE 0.2 MG/ML SYR ONE (09:37)
--- NOTE | 2019-01-27 09:40 | P.BOP ---
Preoperative diagnosis: RUQ abd pain, biliary dyskinesia Postoperative diagnosis: same Primary procedure: Laparoscopic cholecystectomy Glass Designer: PAPO PRIETO (LAP CHECKER) Estimated blood loss: <10cc Specimen: gb Findings: as above Anesthesia: General Complications: None Transferred to: Recovery Room Condition: Good
[2019-01-27] MEDS ORDERED: METOCLOPRAMIDE 10 MG/2mL INJ ONE (10:20)
[2019-01-27] MEDS ORDERED: SCOPOLAMINE HYDROBROMIDE PATCH TD ONE (10:20)
[2019-01-27] MEDS ORDERED: Phenylephrine HCl 10 MG/ML 1 ML VIAL ONE (10:22)
[2019-01-27] MEDS ORDERED: NS 0.9% VIAL 20 ML ONE (10:24)
[2019-01-27] MEDS: HYDROMORPHONE HCL 1 MG/ML INJ ONE ×2 (10:28→10:35)
[2019-01-27 14:28] VITALS: BP 135/52; TEMP 97.5; O2SAT 99
--- NOTE | 2019-01-27 19:49 | OP ---
Date of Procedure: 01/27/2019 Surgeon: Yoni Hurt MD Lead Care Manager: Trina Mills. Preoperative Diagnoses: Right upper quadrant abdominal pain, epigastric pain, biliary dyskinesia. Postoperative Diagnoses: Right upper quadrant abdominal pain, epigastric pain, biliary dyskinesia, c holecystitis. Procedure: Laparoscopic cholecystectomy. Estimated Blood Loss: Less than 10 mL. Specimen: Gallbladder. Findings: Inflammations of the wall of the gallbladder with adhesions of omentum to it. Anesthesia: General plus local. Indications: This is the case of a female who comes to us with epigastric right upper quadrant pain, recurrent, postprandial; diagnosed with biliary dyskinesia; cholecystitis. Laparoscopic, possible o pen cholecystectomy was explained to her as well as the alternative with benefits, alternatives, and risks including, but not limited to infection, bleeding, damage to adjacent structures, anesthetic co mplication, choledocholithiasis, bile leak, pancreatitis, SD, and even . She also understands t his may not relieve the symptoms. She might need more than one surgical intervention. She understoo d, signed a consent. Description Of Procedure: Patient was brought to the operating room, placed in supine position. Ane sthesia was done without complication. Abdominal area was prepped and draped in a sterile fashion. Marcaine 0.5% was injected for local anesthetic, followed by sharp incision of skin in the infraumbil ical region. Patient has a previous incision in that area. We reopened that again. Incision was ca rried down to fascia, which was opened under direct vision. Peritoneum was encountered, opened under direct vision. Vicryl #1 placed inside the fascia. Tello trocar was carefully introduced. No ble eding was obtained. I placed 3 more trocars, 5 mm each one of them in epigastric upper quadrant area under direct visualization. This allowed me to take a look at the abdomen after no bleeding was obt ained. We had adhesions of omentum to the gallbladder and the liver, so carefully those were removed . Gallbladder wall looks a little bit inflamed. So, we put a grasper in the fundus of the gallbladd er, another grasper in the infundibulum, retracted the gallbladder in the inferolateral fashion, expo sing the triangle of Calot, obtaining critical view of safety. The cystic duct and cystic artery wer e clearly isolated free circumferentially and a connection between those and the gallbladder were maurice luly identified. We had a tiny branch also of the cystic artery and also ligated by using at least 3 clips proximal, 1 clip distal, ligation in middle in the cystic duct. The same thing with the arter y and the little branch. The hepatic arteries and common bile duct were protected at all times. The gallbladder was removed from liver using Bovie cauterizer and removed from abdominal cavity using an EndoCatch through the umbilical incision. The area was inspected once again. No bile leak. No ble eding. Clips were intact. At that moment, I proceeded to remove the trocars under direct vision. D eflated the pneumoperitoneum. Closed the fascia with #1 Vicryl. Irrigated subcu tissue, closed that with 3-0 chromic, and skin in a subcuticular fashion with 3-0 chromic and Steri-Strips on top. Spon ge count and instrument counts were correct. Patient tolerated the procedure well. Patient was sent to recovery in stable condition. ROMAIN/COBY Voice ID: [id number] Report ID: [id number]
--- NOTE | 2019-01-29 08:23 | OP ---
Surgeon: Yoni Hurt MD Diagnoses: Acute cholecystitis, epigastric and right upper quadrant pain, acute cholecystitis. Procedure: Laparoscopic cholecystectomy. Disposition: Home. Activity: As tolerated. No heavy lifting. Followup: Follow up in my office in 1 week. Call for appointment at [phone]. Keep area dry for 48 hours, then may shower. Keep Steri-Strip intact. Medications: See orders. Patient wanted pain medication if possible, not to be any opioids except U ltracet that she has not tried before. She has reactions from nausea and vomiting to the other ones. So we are going to try Ultracet and she did agree. ROMAIN/COBY Voice ID: [id number] Report ID: [id number]
== END 2019-01-27 14:15 | disposition home or self-care (01) ==
LOC: OR 08:02
PROVIDERS: ATTEND Surgery
PROC: 0FT44ZZ Resection of Gallbladder, Percutaneous Endoscopic Approach (ICD-10-PCS; principal; 2019-01-27 09:15)
DX: K81.0 Acute cholecystitis (principal); K82.8 Other specified diseases of gallbladder; M79.7 Fibromyalgia; R53.82 Chronic fatigue, unspecified; G47.33 Obstructive sleep apnea (adult) (pediatric); Z88.2 Allergy status to sulfonamides; Z88.8 Allergy status to other drugs, medicaments and biological substances; Z88.6 Allergy status to analgesic agent; Z91.010 Allergy to peanuts; Z80.3 Family history of malignant neoplasm of breast; Z80.42 Family history of malignant neoplasm of prostate; Z82.49 Family history of ischemic heart disease and other diseases of the circulatory system
CPT/HCPCS: 47562; 85025; 80048; 36415; 82150; 80076; 88304; 83690; J2704; J2710; J2765; J2370; J2250 ×3; J3010; J1170; J2405 ×3

== ENCOUNTER 2019-03-20 07:26 | Emergency (ER) | payer OTHER ==
[2019-03-20] MEDS ORDERED: METOPROLOL TAR 50 MG TAB ONE (07:57)
[2019-03-20] MEDS ORDERED: METOPROLOL TARTRATE 5 MG/5 ML INJ IV ONE (07:57)
[2019-03-20 08:03] LABS: Absolute Lymphocytes (CBC) 2.6 K/uL (0.7-4.9); Basophils % 0.5 % (0-1.3); Hematocrit 35.4 % (36.0-45.0); Lymphocytes % 44.8 % (15.3-44.8); MPV 8.2 fL (7.6-11.3); Protime INR 1.02; RBC Red Blood Cell Count 4.07 M/uL (3.86-4.86)
[2019-03-20] MEDS ORDERED: ENOXAPARIN 100 MG/ML SYR SQ ONE (08:07)
[2019-03-20] MEDS ORDERED: FAMOTIDINE 20 MG/2 ML VIAL IV ONE (08:07)
[2019-03-20 08:23] LABS: ALT/SGPT 33 U/L (12-78); AST/SGOT 15 U/L (15-37); Albumin 4.2 g/dL (3.4-5.0); Alkaline Phosphatase 77 U/L (45-117); BUN Blood Urea Nitrogen 15 mg/dL (7-18); Bicarbonate 26 mmol/L (21-32); Bilirubin Direct 0.1 mg/dL (0-0.2); Bilirubin Total 0.4 mg/dL (0.2-1.0); Glucose Level 101 mg/dL (74-106); Magnesium 2.3 mg/dL (1.8-2.4); NT PRO-BNP 82 pg/mL (<125); Potassium 3.2 mmol/L (3.5-5.1); Protein, Total 7.5 g/dL (6.4-8.2); Sodium Level 141 mmol/L (136-145); Troponin (Emerg Dept Use Only) < 0.02 ng/mL (0.0-0.045)
[2019-03-20 08:54] LABS: Blood Morphology Comment NOT SEEN (NOT SEEN); Platelet Estimate ADEQ; Thyroid Stimulating Hormone 4.74 uIU/mL (0.360-3.740)
[2019-03-20 09:20] LABS: Arterial Blood Carboxyhemoglob 0.7 % (0-1.5); Blood Gas Oxyhemoglobin 96.1 % (94-97); Blood O2 Saturation 97.7 % (92-98.5)
[2019-03-20 09:41] LABS: Urine Blood NEGATIVE (NEG); Urine Glucose NEGATIVE (NEG); Urine Protein NEGATIVE (NEG)
--- NOTE | 2019-03-20 10:20 | ER ---
Nurse's Notes [facility] Name: Alessandra Suarez Age: 63 yrs Sex: Female : 1955 Arrival Date: 03/20/2019 Time: 07:27 Bed 7 Private MD: Pablito Atkinson S; Surendra Ng V Diagnosis: Palpitations;Dyspnea;Hypokalemia Presentation: 03/20 07:45 Presenting complaint: Patient states: I have a heart monitor on and it woke me up from la1 my sleep going off, I was having chest pain, palpitations and SOB. It feels better now but I called the number on the monitor and they told me to come in. Transition of care: patient was not received from another setting of care. Onset of symptoms was March 20, 2019. Risk Assessment: Do you want to hurt yourself or someone else? Patient reports no desire to harm self or others. Initial Sepsis Screen: Does the patient meet any 2 criteria? No. Patient's initial sepsis screen is negative. Does the patient have a suspected source of infection? No. Patient's initial sepsis screen is negative. Care prior to arrival: None. 07:45 Method Of Arrival: Ambulatory la1 07:45 Acuity: KRISTA 2 la1 Historical: - Allergies: 07:44 Codeine; la1 07:44 Darvon; la1 07:44 Phenergan; la1 07:44 Stadol; la1 07:44 Sulfa (Sulfonamide Antibiotics); la1 07:44 Talwin; la1 07:44 teramycin; la1 - PMHx: 07:44 Anxiety; la1 - PSHx: 07:44 Cholecystectomy; la1 - Immunization history:: Adult Immunizations up to date. - Social history:: Smoking status: Patient/guardian denies using tobacco. - Ebola Screening: : No symptoms or risks identified at this time. - Family history:: not pertinent. Screenin:46 Abuse screen: Denies threats or abuse. Nutritional screening: No deficits noted. la1 Tuberculosis screening: No symptoms or risk factors identified. Fall Risk None identified. Assessment: 07:48 General: Appears in no apparent distress. Behavior is calm, cooperative. Pain: Denies la1 pain. Neuro: Level of Consciousness is awake, alert, obeys commands, Oriented to person, place, time, situation. Cardiovascular: Heart tones S1 S2 present Capillary refill < 3 seconds Patient's skin is warm and dry. Rhythm is sinus tachycardia. Respiratory: Airway is patent Respiratory effort is even, unlabored, Respiratory pattern is regular, symmetrical, Breath sounds are clear bilaterally. GI: No signs and/or symptoms were reported involving the gastrointestinal system. : No signs and/or symptoms were reported regarding the genitourinary system. 09:37 Reassessment: Patient appears in no apparent distress at this time. No changes from la1 previously documented assessment. Patient and/or family updated on plan of care and expected duration. Pain level reassessed. Patient is alert, oriented x 3, equal unlabored respirations, skin warm/dry/pink. Patient states feeling better. Patient states symptoms have improved. 10:37 Reassessment: Patient appears in no apparent distress at this time. No changes from la1 previously documented assessment. Patient and/or family updated on plan of care and expected duration. Pain level reassessed. Patient is alert, oriented x 3, equal unlabored respirations, skin warm/dry/pink. Pt denies SOB, chest pain, dizziness, has not had episode during stay in department. Vital Signs: 07:43 BP 167 / 68; Pulse 98; Resp 16; Temp 97.2; Pulse Ox 98% on R/A; la1 08:16 Weight 113.4 kg; la1 08:52 BP 126 / 70; Pulse 67; Resp 12; Pulse Ox 95% ; sv 09:33 BP 126 / 72; Pulse 64; Resp 16; Pulse Ox 98% on R/A; la1 ED Course: 07:27 Patient arrived in ED. as 07:28 Surendra Ng MD is Private Physician. as 07:28 Pablito Atkinson MD is Private Physician. as 07:29 Agustin Venegas, SIMONE is Primary Nurse. la1 07:36 Grey Garcia MD is Attending Physician. jose 07:39 EKG done, by ED staff, reviewed by Grey Garcia MD. em1 07:44 Arm band placed on right wrist. EKG completed in triage. Results shown to MD. la1 07:46 Triage completed. la1 07:46 No provider procedures requiring assistance completed. Inserted saline lock: 18 gauge la1 in right antecubital area, using aseptic technique. Blood collected. 08:15 XRAY Chest (1 view) In Process Unspecified. EDMS 10:19 Surendra Ng MD is Referral Physician. [facility] 10:19 Pablito Atkinson MD is Referral Physician. [facility] 10:38 IV discontinued, intact, bleeding controlled, No redness/swelling at site. Pressure la1 dressing applied. Administered Medications: 08:01 Not Given (Duplicate Order): Lopressor (metoprolol TARTRATE) 50 mg PO once la1 08:02 Drug: Lopressor 2.5 mg Route: IVP; Site: right antecubital; la1 09:40 Follow up: Response: No adverse reaction la1 08:02 Not Given (Pt took home medication metoprolol 25mg ): Metoprolol 25 mg PO once la1 08:16 Drug: Lovenox 1 mg/kg Route: Sub-Q; Site: abdomen; la1 09:40 Follow up: Response: No adverse reaction la1 08:16 Drug: Pepcid 20 mg Route: IVP; Site: right antecubital; la1 09:41 Follow up: Response: No adverse reaction la1 09:06 Not Given (Physician Discretion): Lopressor 2.5 mg IVP once; Hold for SBP <100 or HR la1 <60. 10:37 Drug: Potassium Effervescent Tablet 25 mEq Route: PO; la1 Outcome: 10:19 Discharge ordered by . [facility] 10:37 Discharged to home ambulatory. la1 10:37 Condition: stable 10:37 Discharge instructions given to patient, Instructed on discharge instructions, follow up and referral plans. medication usage, Demonstrated understanding of instructions, follow-up care, medications, Prescriptions given X 1. 10:38 Patient left the ED. la1 Signatures: Dispatcher [employer] EDFidelia Guerra RN RN sv Anderson, Corey, MD MD cha Martinez, Amelia as Martinez, Eric em1 Agustin Venegas RN RN la1
--- NOTE | 2019-03-20 10:21 | EDPHYS ---
Physician Documentation [facility] Name: Alessandra Suarez Age: 63 yrs Sex: Female : 1955 Arrival Date: 03/20/2019 Time: 07:27 Bed 7 Private MD: Pablito Atkinson S; Surendra Ng V ED Physician Grey Garcia HPI: 03/20 07:56 This 63 yrs old Female presents to ER via Ambulatory with complaints of chest jose pain, palpitations and sob. 07:56 The patient has shortness of breath at rest, with light activity. Onset: The jose symptoms/episode began/occurred just prior to arrival, this morning. Duration: The symptoms are continuous, and are unchanged since they started. The patient's shortness of breath has no apparent modifying factors. The patient or guardian reports chest pain that is located primarily in the substernal area. Onset: this morning. The patient presents with a history of irregular heart beat, heart racing. Context: The symptoms occur at rest. Historical: - Allergies: 07:44 Codeine; la1 07:44 Darvon; la1 07:44 Phenergan; la1 07:44 Stadol; la1 07:44 Sulfa (Sulfonamide Antibiotics); la1 07:44 Talwin; la1 07:44 teramycin; la1 - PMHx: 07:44 Anxiety; la1 - PSHx: 07:44 Cholecystectomy; la1 - Immunization history:: Adult Immunizations up to date. - Social history:: Smoking status: Patient/guardian denies using tobacco. - Ebola Screening: : No symptoms or risks identified at this time. - Family history:: not pertinent. ROS: 07:56 Constitutional: Negative for fever, chills, and weight loss, Eyes: Negative for injury, jose pain, redness, and discharge, ENT: Negative for injury, pain, and discharge, Neck: Negative for injury, pain, and swelling, Respiratory: Negative for shortness of breath, cough, wheezing, and pleuritic chest pain, Abdomen/GI: Negative for abdominal pain, nausea, vomiting, diarrhea, and constipation, Back: Negative for injury and pain, : Negative for injury, bleeding, discharge, and swelling, MS/Extremity: Negative for injury and deformity, Skin: Negative for injury, rash, and discoloration, Neuro: Negative for headache, weakness, numbness, tingling, and seizure, Psych: Negative for depression, anxiety, suicide ideation, homicidal ideation, and hallucinations, Allergy/Immunology: Negative for hives, rash, and allergies, Endocrine: Negative for neck swelling, polydipsia, polyuria, polyphagia, and marked weight changes, Hematologic/Lymphatic: Negative for swollen nodes, abnormal bleeding, and unusual bruising. 07:56 Cardiovascular: Positive for chest pain, orthopnea, palpitations. 07:56 Respiratory: Positive for dyspnea on exertion, shortness of breath. Exam: 07:56 Constitutional: This is a well developed, well nourished patient who is awake, alert, jose and in no acute distress. Head/Face: Normocephalic, atraumatic. Eyes: Pupils equal round and reactive to light, extra-ocular motions intact. Lids and lashes normal. Conjunctiva and sclera are non-icteric and not injected. Cornea within normal limits. Periorbital areas with no swelling, redness, or edema. ENT: Nares patent. No nasal discharge, no septal abnormalities noted. Tympanic membranes are normal and external auditory canals are clear. Oropharynx with no redness, swelling, or masses, exudates, or evidence of obstruction, uvula midline. Mucous membranes moist. Neck: Trachea midline, no thyromegaly or masses palpated, and no cervical lymphadenopathy. Supple, full range of motion without nuchal rigidity, or vertebral point tenderness. No Meningismus. Chest/axilla: Normal chest wall appearance and motion. Nontender with no deformity. No lesions are appreciated. Respiratory: Lungs have equal breath sounds bilaterally, clear to auscultation and percussion. No rales, rhonchi or wheezes noted. No increased work of breathing, no retractions or nasal flaring. Abdomen/GI: Soft, non-tender, with normal bowel sounds. No distension or tympany. No guarding or rebound. No evidence of tenderness throughout. Back: No spinal tenderness. No costovertebral tenderness. Full range of motion. Female : Normal external genitalia. Skin: Warm, dry with normal turgor. Normal color with no rashes, no lesions, and no evidence of cellulitis. MS/ Extremity: Pulses equal, no cyanosis. Neurovascular intact. Full, normal range of motion. Neuro: Awake and alert, GCS 15, oriented to person, place, time, and situation. Cranial nerves II-XII grossly intact. Motor strength 5/5 in all extremities. Sensory grossly intact. Cerebellar exam normal. Normal gait. Psych: Awake, alert, with orientation to person, place and time. Behavior, mood, and affect are within normal limits. 07:56 Cardiovascular: Rate: tachycardic, Rhythm: regular, Pulses: Pulses are 4+ in bilateral radial, brachial, femoral, popliteal, posterior tibial and and dorsalis pedis arteries.. Heart sounds: normal, Edema: is not appreciated, JVD: is not appreciated. Vital Signs: 07:43 BP 167 / 68; Pulse 98; Resp 16; Temp 97.2; Pulse Ox 98% on R/A; la1 08:16 Weight 113.4 kg; la1 08:52 BP 126 / 70; Pulse 67; Resp 12; Pulse Ox 95% ; sv 09:33 BP 126 / 72; Pulse 64; Resp 16; Pulse Ox 98% on R/A; la1 MDM: 07:36 Patient medically screened. [facility] 08:02 Data reviewed: vital signs, nurses notes, lab test result(s), EKG, radiologic studies, [facility] CT scan, plain films. 03/20 07:43 Order name: Basic Metabolic Panel; Complete Time: 08:41 [facility] 03/20 07:43 Order name: CBC with Diff; Complete Time: 10:08 [facility] 03/20 07:43 Order name: LFT's; Complete Time: 08:41 [facility] 03/20 07:43 Order name: Magnesium; Complete Time: 08:41 [facility] 03/20 07:43 Order name: NT PRO-BNP; Complete Time: 08:41 [facility] 03/20 07:43 Order name: PT-INR; Complete Time: 08:41 [facility] 03/20 07:43 Order name: Troponin (emerg Dept Use Only); Complete Time: 08:41 [facility] 03/20 07:55 Order name: TSH; Complete Time: 10:08 [facility] 03/20 08:13 Order name: D-Dimer; Complete Time: 08:42 ED[facility] 03/20 08:48 Order name: ABG: room air; Complete Time: 10:08 [facility] 03/20 08:54 Order name: Manual Differential; Complete Time: 10:08 [facility] 03/20 08:55 Order name: T4 Free; Complete Time: 10:08 EDMS 03/20 09:04 Order name: Urine Dipstick--Ancillary (enter results); Complete Time: 10:08 eb 03/20 07:43 Order name: XRAY Chest (1 view) la1 03/20 07:43 Order name: EKG; Complete Time: 07:44 [facility] 03/20 07:43 Order name: Cardiac monitoring; Complete Time: 07:47 [facility] 03/20 07:43 Order name: EKG - Nurse/Tech; Complete Time: 07:47 [facility] 03/20 07:43 Order name: IV Saline Lock; Complete Time: 07:47 [facility] 03/20 07:43 Order name: Labs collected and sent; Complete Time: 07:47 [facility] 03/20 07:43 Order name: O2 Per Protocol; Complete Time: 07:47 [facility] 03/20 07:43 Order name: O2 Sat Monitoring; Complete Time: 07:47 [facility] 03/20 09:44 Order name: Troponin (emerg Dept Use Only): 10am; Complete Time: 10:19 [facility] 03/20 09:03 Order name: Urine Dipstick-Ancillary (obtain specimen); Complete Time: 09:05 [facility] Administered Medications: 08:01 Not Given (Duplicate Order): Lopressor (metoprolol TARTRATE) 50 mg PO once la1 08:02 Drug: Lopressor 2.5 mg Route: IVP; Site: right antecubital; la1 09:40 Follow up: Response: No adverse reaction la1 08:02 Not Given (Pt took home medication metoprolol 25mg ): Metoprolol 25 mg PO once la1 08:16 Drug: Lovenox 1 mg/kg Route: Sub-Q; Site: abdomen; la1 09:40 Follow up: Response: No adverse reaction la1 08:16 Drug: Pepcid 20 mg Route: IVP; Site: right antecubital; la1 09:41 Follow up: Response: No adverse reaction la1 09:06 Not Given (Physician Discretion): Lopressor 2.5 mg IVP once; Hold for SBP <100 or HR la1 <60. 10:37 Drug: Potassium Effervescent Tablet 25 mEq Route: PO; la1 Disposition: 03/20/19 10:19 Discharged to Home. Impression: Palpitations, Dyspnea, Hypokalemia. - Condition is Stable. - Discharge Instructions: Potassium Content of Foods, Holter Monitoring, Palpitations, Aspirin and Your Heart, Palpitations, [id number], Hypokalemia. - Prescriptions for Lopressor 50 mg Oral tablet - take 0.5 tablet by ORAL route 2 times per day with meals; 30 tablet. - Medication Reconciliation Form, Thank You Letter, Antibiotic Education, Prescription Opioid Use form. - Follow up: Surendra Ng; When: 1 - 2 days; Reason: Recheck today's complaints, Continuance of care, Re-evaluation by your physician. Follow up: Pablito Atkinson; When: 1 - 2 days; Reason: Recheck today's complaints, Re-evaluation by your physician. - Problem is new. - Symptoms have improved. Signatures: Dispatcher [employer] [facility] Grey Garcia MD MD cha Attema, Lee RN RN la1 Corrections: (The following items were deleted from the chart) 08:13 07:56 D-DIMER+COAG.LAB.BRZ ordered. [facility] 10:38 10:19 03/20/2019 10:19 Discharged to Home. Impression: Palpitations; Dyspnea; la1 Hypokalemia. Condition is Stable. Discharge Instructions: Holter Monitoring, Palpitations, Aspirin and Your Heart, Palpitations, [id number]. Prescriptions for Lopressor 50 mg Oral tablet - take 0.5 tablet by ORAL route 2 times per day with meals; 30 tablet. and Forms are Medication Reconciliation Form, Thank You Letter, Antibiotic Education, Prescription Opioid Use. Follow up: Surendra Ng; When: 1 - 2 days; Reason: Recheck today's complaints, Continuance of care, Re-evaluation by your physician. Follow up: Pablito Atkinson; When: 1 - 2 days; Reason: Recheck today's complaints, Re-evaluation by your physician. Problem is new. Symptoms have improved. jose
[2019-03-20] MEDS ORDERED: POTASSIUM 25 MEQ EFFERV TAB ONE (10:22)
--- NOTE | 2019-03-20 11:12 | RAD REPORT ---
EXAM DESCRIPTION: RAD - Chest Single View - 03/20/2019 8:15 am CLINICAL HISTORY: CHEST PAIN Chest pain. COMPARISON: Chest Pa And Lat (2 Views) dated 11/11/2018; Chest Single View dated 01/29/2017 FINDINGS: Portable technique limits examination quality. The lungs are grossly clear. The heart is normal in size. No displaced fractures. IMPRESSION: No acute intrathoracic process suspected.
[2019-03-20 14:39] VITALS: TEMP 97.2
[2019-03-20 14:42] VITALS: BP 126/72; O2SAT 98
--- NOTE | 2019-03-20 17:21 | EKG ---
Test Date: 2019-03-20 Test Time: 07:35:59 Polymer Specialist: RIKKI MEASUREMENT RESULTS: Intervals: Rate: 91 NH: 116 QRSD: 100 QT: 390 QTc: 479 Galt: P: 28 NH: 116 QRS: 49 T: 36 INTERPRETIVE STATEMENTS: Normal sinus rhythm Nonspecific ST abnormality Abnormal ECG Compared to ECG 01/14/2019 07:53:01 ST (T wave) deviation now present Electronically Signed On 03-20-19 17:21:34 CHEMIST STEROIDS by Walter Yanes
== END 2019-03-20 10:38 | disposition home or self-care (01) ==
LOC: ER 07:26
DX: R00.2 Palpitations (principal); E87.6 Hypokalemia; Z88.2 Allergy status to sulfonamides; Z88.3 Allergy status to other anti-infective agents; Z88.5 Allergy status to narcotic agent; Z88.8 Allergy status to other drugs, medicaments and biological substances
CPT/HCPCS: 93005; 85025; 80048; 36415; 83735; 85610; 85379; 80076; 84443; 81003; 84484 ×2; 84439; 83880; 71045; 82805; 96375; 96372; 96374; 99284; J1650

== ENCOUNTER 2019-05-23 21:48 | Observation (INO) | payer OTHER ==
[2019-05-23] MEDS ORDERED: ENOXAPARIN 100 MG/ML SYR SQ ONE (22:19)
[2019-05-23] MEDS ORDERED: NA CHLORIDE 0.9% 1,000 ML ONE (22:19)
[2019-05-23 22:20] LABS: Absolute Lymphocytes (CBC) 1.9 K/uL (0.7-4.9); Basophils % 0.8 % (0-1.3); Hematocrit 34.9 % (36.0-45.0); Lymphocytes % 30.5 % (15.3-44.8); MPV 8.6 fL (7.6-11.3); RBC Red Blood Cell Count 4.01 M/uL (3.86-4.86)
[2019-05-23 22:30] LABS: Protime INR 0.99
[2019-05-23 22:40] LABS: ALT/SGPT 23 U/L (12-78); AST/SGOT 11 U/L (15-37); Albumin 3.8 g/dL (3.4-5.0); Alkaline Phosphatase 76 U/L (45-117); BUN Blood Urea Nitrogen 22 mg/dL (7-18); Bicarbonate 29 mmol/L (21-32); Bilirubin Direct < 0.1 mg/dL (0-0.2); Bilirubin Total 0.2 mg/dL (0.2-1.0); Glucose Level 108 mg/dL (74-106); Lipase 168 U/L (73-393); NT PRO-BNP 61 pg/mL (<125); Potassium 3.9 mmol/L (3.5-5.1); Protein, Total 7.1 g/dL (6.4-8.2); Sodium Level 142 mmol/L (136-145); Troponin (Emerg Dept Use Only) < 0.02 ng/mL (0.0-0.045)
--- NOTE | 2019-05-23 22:40 | EDPHYS ---
Physician Documentation [facility] Name: Alessandra Suarez Age: 63 yrs Sex: Female : 1955 Arrival Date: 05/23/2019 Time: 21:59 Bed 7 Private MD: ED Physician Grey Garcia HPI: 05/23 22:12 This 63 yrs old Female presents to ER via EMS with complaints of chest pain jose and sob. 22:12 The patient has shortness of breath with light activity. Onset: The symptoms/episode jose began/occurred just prior to arrival, 2 hour(s) ago. Duration: The symptoms are continuous, but are markedly better than the original presentation. The patient's shortness of breath has no apparent modifying factors. The patient or guardian reports chest pain that is located primarily in the anterior chest wall, left. The pain radiates to . Associated signs and symptoms: Pertinent positives: chest pain. Severity of symptoms: At their worst the symptoms were moderate in the emergency department the symptoms have improved markedly. Historical: - Allergies: 22:06 Codeine; rv 22:06 Darvon; rv 22:06 Phenergan; rv 22:06 Stadol; rv 22:06 Sulfa (Sulfonamide Antibiotics); rv 22:06 Talwin; rv 22:06 teramycin; rv - Home Meds: 22:06 metoprolol tartrate 50 mg Oral tab 1 tab 2 times per day [Active]; rv - PMHx: 22:06 Anxiety; Hypertension; rv - PSHx: 22:06 ; Cholecystectomy; rv - Immunization history:: Adult Immunizations up to date. - Social history:: Smoking status: Patient denies any tobacco usage or history of. - Ebola Screening: : No symptoms or risks identified at this time. - Family history:: not pertinent. ROS: 22:12 Constitutional: Negative for fever, chills, and weight loss, Eyes: Negative for injury, jose pain, redness, and discharge, ENT: Negative for injury, pain, and discharge, Neck: Negative for injury, pain, and swelling, Respiratory: Negative for shortness of breath, cough, wheezing, and pleuritic chest pain, Abdomen/GI: Negative for abdominal pain, nausea, vomiting, diarrhea, and constipation, Back: Negative for injury and pain, : Negative for injury, bleeding, discharge, and swelling, MS/Extremity: Negative for injury and deformity, Skin: Negative for injury, rash, and discoloration, Neuro: Negative for headache, weakness, numbness, tingling, and seizure, Psych: Negative for depression, anxiety, suicide ideation, homicidal ideation, and hallucinations, Allergy/Immunology: Negative for hives, rash, and allergies, Endocrine: Negative for neck swelling, polydipsia, polyuria, polyphagia, and marked weight changes, Hematologic/Lymphatic: Negative for swollen nodes, abnormal bleeding, and unusual bruising. 22:12 Cardiovascular: Positive for chest pain, of the chest. Exam: 22:12 Constitutional: This is a well developed, well nourished patient who is awake, alert, jose and in no acute distress. Head/Face: Normocephalic, atraumatic. Eyes: Pupils equal round and reactive to light, extra-ocular motions intact. Lids and lashes normal. Conjunctiva and sclera are non-icteric and not injected. Cornea within normal limits. Periorbital areas with no swelling, redness, or edema. ENT: Nares patent. No nasal discharge, no septal abnormalities noted. Tympanic membranes are normal and external auditory canals are clear. Oropharynx with no redness, swelling, or masses, exudates, or evidence of obstruction, uvula midline. Mucous membranes moist. Neck: Trachea midline, no thyromegaly or masses palpated, and no cervical lymphadenopathy. Supple, full range of motion without nuchal rigidity, or vertebral point tenderness. No Meningismus. Cardiovascular: Regular rate and rhythm with a normal S1 and S2. No gallops, murmurs, or rubs. Normal PMI, no JVD. No pulse deficits. Respiratory: Lungs have equal breath sounds bilaterally, clear to auscultation and percussion. No rales, rhonchi or wheezes noted. No increased work of breathing, no retractions or nasal flaring. Abdomen/GI: Soft, non-tender, with normal bowel sounds. No distension or tympany. No guarding or rebound. No evidence of tenderness throughout. Back: No spinal tenderness. No costovertebral tenderness. Full range of motion. Female : Normal external genitalia. Skin: Warm, dry with normal turgor. Normal color with no rashes, no lesions, and no evidence of cellulitis. MS/ Extremity: Pulses equal, no cyanosis. Neurovascular intact. Full, normal range of motion. Neuro: Awake and alert, GCS 15, oriented to person, place, time, and situation. Cranial nerves II-XII grossly intact. Motor strength 5/5 in all extremities. Sensory grossly intact. Cerebellar exam normal. Normal gait. Psych: Awake, alert, with orientation to person, place and time. Behavior, mood, and affect are within normal limits. 22:12 Chest/axilla: Inspection: normal, no acute changes, Palpation: is normal, tenderness, is not appreciated, Axilla: are normal, no acute changes, lymphadenopathy, is not appreciated, Breasts: are normal, Lymph nodes: lymphadenopathy is not appreciated. 22:14 Musculoskeletal/extremity: DVT Exam: No signs of deep vein thrombosis. no pain, no jose swelling, no tenderness, negative Homans' sign noted on exam, no appreciated bluish discoloration, no erythema, no increased warmth. Vital Signs: 22:00 BP 114 / 99; Pulse 77; Resp 15; Temp 98.3; Pulse Ox 95% on R/A; Weight 117.03 kg; rv Height 5 ft. 10 in. (177.80 cm); Pain 4/10; 23:00 BP 153 / 79; Pulse 78; Resp 16; Pulse Ox 100% on R/A; jb4 05/24 00:01 BP 130 / 76; Pulse 71; Resp 18; Temp 98.3(O); Pulse Ox 98% on R/A; jb4 05/23 22:00 Body Mass Index 37.02 (117.03 kg, 177.80 cm) rv MDM: 05/23 22:01 Patient medically screened. [facility] 22:14 Data reviewed: vital signs, nurses notes, lab test result(s), EKG, radiologic studies, [facility] CT scan, plain films. 05/23 22:02 Order name: Basic Metabolic Panel; Complete Time: 22:59 [facility] 05/23 22: Order name: CBC with Diff; Complete Time: 22:37 [facility] 05/23 22: Order name: LFT's; Complete Time: 22:59 [facility] 05/23 22:02 Order name: Magnesium; Complete Time: 22:59 [facility] 05/23 22: Order name: NT PRO-BNP; Complete Time: 22:59 [facility] 05/23 22:02 Order name: PT-INR; Complete Time: 23:17 [facility] 05/23 22:02 Order name: Troponin (emerg Dept Use Only); Complete Time: 22:59 [facility] 05/23 22:02 Order name: XRAY Chest (1 view) [facility] 05/23 22:02 Order name: Lipase; Complete Time: 22:59 [facility] 05/23 22:09 Order name: TSH; Complete Time: 22:59 [facility] 05/23 22:51 Order name: Urine Dipstick--Ancillary (enter results); Complete Time: 23:17 [place] 05/23 23:09 Order name: D-Dimer; Complete Time: 23:17 [facility] 05/23 22:02 Order name: EKG; Complete Time: 22:03 [facility] 05/23 22:02 Order name: Cardiac monitoring; Complete Time: 22:07 [facility] 05/23 22:02 Order name: EKG - Nurse/Tech; Complete Time: 22:07 [facility] 05/23 22:02 Order name: IV Saline Lock; Complete Time: 22:11 [facility] 05/23 22:02 Order name: Labs collected and sent; Complete Time: 22:11 [facility] 05/23 22:02 Order name: O2 Per Protocol; Complete Time: 22:11 [facility] 05/23 22:02 Order name: O2 Sat Monitoring; Complete Time: 22:11 [facility] 05/23 22:02 Order name: Urine Dipstick-Ancillary (obtain specimen); Complete Time: 22:30 [facility] 05/23 23:10 Order name: CONS Physician Consult EDWA Administered Medications: 22:30 Drug: NS 0.9% 1000 ml Route: IV; Rate: 125 ml/hr; Site: right antecubital; jb4 22:30 Drug: Lovenox 100 mg Route: Sub-Q; Site: right lower abdomen; jb4 22:54 Follow up: Response: No adverse reaction rv Disposition: 05/23/19 23:05 Hospitalization ordered by Surendra Ng for Observation. Preliminary diagnosis are Chest pain, unspecified, Dyspnea, Essential (primary) hypertension. - Bed requested for Telemetry/MedSurg (observation). - Status is Observation. jb4 - Condition is Stable. - Problem is new. - Symptoms have improved. UTI on Admission? No Signatures: Dispatcher [employer] [facility] Grey Garcia MD MD cha Ballard, Brenda RN RN bb Keith Whipple, RN RN jb4 Cecil Phan, RN RN rv Corrections: (The following items were deleted from the chart) 22:41 22:40 Hospitalization Ordered by Alyce Cuadra MD for Observation. Preliminary jose diagnosis is Chest pain, unspecified; Dyspnea; Palpitations. Bed requested for Telemetry/MedSurg (observation). Status is Observation. Condition is Stable. Problem is new. Symptoms have improved. UTI on Admission? No. jose 23:08 23:01 D-DIMER+COAG.LAB.BRZ ordered. EDMS EDMS 23:10 22:10 Chest For PE Angio+CT.RAD.BRZ ordered. EDWA EDMS 23:52 23:05 Hospitalization Ordered by Surendra gN MD for Observation. Preliminary diagnosis bb is Chest pain, unspecified; Dyspnea; Essential (primary) hypertension. Bed requested for Telemetry/MedSurg (observation). Status is Observation. Condition is Stable. Problem is new. Symptoms have improved. UTI on Admission? No. jose 05/24 00:59 05/23 23:52 05/23/2019 23:05 Hospitalization Ordered by Surendra gN MD for jb4 Observation. Preliminary diagnosis is Chest pain, unspecified; Dyspnea; Essential (primary) hypertension. Bed requested for Telemetry/MedSurg (observation). Status is Observation. Condition is Stable. Problem is new. Symptoms have improved. UTI on Admission? No. bb
--- NOTE | 2019-05-23 22:40 | ER ---
Nurse's Notes [facility] Name: Alessandra Suarez Age: 63 yrs Sex: Female : 1955 Arrival Date: 05/23/2019 Time: 21:59 Bed 7 Private MD: Diagnosis: Chest pain, unspecified;Dyspnea;Essential (primary) hypertension Presentation: 05/23 21:59 Presenting complaint: Patient states: HAVE BEEN HAVING THE PALPITATIONS AND CHEST PAIN rv FOR PAST FEW DAYS NOW. FEEL LIKE CRAMPING PAIN ON THE LEFT SIDE OF MY CHEST THAT GOES TOWARDS THE MIDLINE. WITH SHORTNESS OF BREATHE. Transition of care: patient was not received from another setting of care. Onset of symptoms was May 23, 2019 at 17:00. Risk Assessment: Do you want to hurt yourself or someone else? Patient reports no desire to harm self or others. Initial Sepsis Screen: Does the patient meet any 2 criteria? No. Patient's initial sepsis screen is negative. Does the patient have a suspected source of infection? No. Patient's initial sepsis screen is negative. Care prior to arrival: None. 21:59 Method Of Arrival: EMS: [facility] rv 21:59 Acuity: KRISTA 3 rv Triage Assessment: 22:06 General: Appears in no apparent distress. Behavior is calm, cooperative. Pain: rv Complains of pain in left breast Pain radiates to anterior aspect of right upper chest and mid-sternal area Pain currently is 4 out of 10 on a pain scale. Quality of pain is described as crampy. Neuro: Level of Consciousness is awake, alert, obeys commands, Oriented to person, place, time, situation. Cardiovascular: Patient's skin is warm and dry. Rhythm is regular. Respiratory: Airway is patent. Respiratory: Reports shortness of breath at rest. GI: No signs and/or symptoms were reported involving the gastrointestinal system. Derm: Skin is intact. Musculoskeletal: No signs and/or symptoms reported regarding the musculoskeletal system. Historical: - Allergies: 22:06 Codeine; rv 22:06 Darvon; rv 22:06 Phenergan; rv 22:06 Stadol; rv 22:06 Sulfa (Sulfonamide Antibiotics); rv 22:06 Talwin; rv 22:06 teramycin; rv - Home Meds: 22:06 metoprolol tartrate 50 mg Oral tab 1 tab 2 times per day [Active]; rv - PMHx: 22:06 Anxiety; Hypertension; rv - PSHx: 22:06 ; Cholecystectomy; rv - Immunization history:: Adult Immunizations up to date. - Social history:: Smoking status: Patient denies any tobacco usage or history of. - Ebola Screening: : No symptoms or risks identified at this time. - Family history:: not pertinent. Screenin:09 Abuse screen: Denies threats or abuse. Denies injuries from another. Nutritional rv screening: No deficits noted. Tuberculosis screening: No symptoms or risk factors identified. Fall Risk None identified. Assessment: 22:07 Reassessment: SEE TRIAGE NOTES. rv 23:31 Reassessment: Patient appears in no apparent distress at this time. Patient and/or jb4 family updated on plan of care and expected duration. Pain level reassessed. Patient is alert, oriented x 3, equal unlabored respirations, skin warm/dry/pink. 05/24 00:01 Reassessment: Patient appears in no apparent distress at this time. Patient and/or jb4 family updated on plan of care and expected duration. Pain level reassessed. Patient is alert, oriented x 3, equal unlabored respirations, skin warm/dry/pink. Vital Signs: 05/23 22:00 BP 114 / 99; Pulse 77; Resp 15; Temp 98.3; Pulse Ox 95% on R/A; Weight 117.03 kg; rv Height 5 ft. 10 in. (177.80 cm); Pain 4/10; 23:00 BP 153 / 79; Pulse 78; Resp 16; Pulse Ox 100% on R/A; jb4 05/24 00:01 BP 130 / 76; Pulse 71; Resp 18; Temp 98.3(O); Pulse Ox 98% on R/A; jb4 05/23 22:00 Body Mass Index 37.02 (117.03 kg, 177.80 cm) rv ED Course: 05/23 21:59 Patient arrived in ED. rv 22:00 Triage completed. rv 22:01 Grey Garcia MD is Attending Physician. [facility] 22:06 Arm band placed on right wrist. rv 22:07 Keith Whipple RN is Primary Nurse. jb4 22:08 Patient has correct armband on for positive identification. Placed in gown. Bed in low rv position. Call light in reach. pvc monitor on. Pulse ox on. NIBP on. 22:09 Maintain EMS IV. Dressing intact. Good blood return noted. Site clean \T\ dry. Gauge \T\ rv site: G20 RIGHT AC. 22:31 XRAY Chest (1 view) In Process Unspecified. EDMS 22:39 Alyce Cuadra MD is Hospitalizing Provider. [facility] 23:04 Surendra Ng MD is Hospitalizing Provider. jose Administered Medications: 22:30 Drug: NS 0.9% 1000 ml Route: IV; Rate: 125 ml/hr; Site: right antecubital; jb4 22:30 Drug: Lovenox 100 mg Route: Sub-Q; Site: right lower abdomen; jb4 22:54 Follow up: Response: No adverse reaction rv Outcome: 22:40 Decision to Hospitalize by Provider. jose 23:05 Decision to Hospitalize by Provider. [facility] 05/24 00:59 Patient left the ED. jb4 Signatures: Dispatcher [employer] EDMS Grey Garcia MD MD cha Bryson, James, RN RN jb4 Cecil Phan, RN RN rv
[2019-05-23 23:06] LABS: Urine Blood NEGATIVE (NEG); Urine Glucose NEGATIVE (NEG); Urine Protein NEGATIVE (NEG)
[2019-05-23] MEDS ORDERED: FENTANYL CITR 100 MCG/2 ML IV PRN (23:14)
[2019-05-24] MEDS ORDERED: ONDANSETRON 4 MG/2 ML VIAL IV PRN (00:21)
[2019-05-24] MEDS ORDERED: ACETAMINOPHEN 500 MG TAB PO PRN (00:21)
[2019-05-24 00:56] VITALS: BMI 37.8
[2019-05-24 05:58] LABS: Absolute Lymphocytes (CBC) 2.3 K/uL (0.7-4.9); Basophils % 0.5 % (0-1.3); Hematocrit 32.7 % (36.0-45.0); MPV 8.4 fL (7.6-11.3); RBC Red Blood Cell Count 3.74 M/uL (3.86-4.86)
[2019-05-24 06:19] LABS: Potassium 3.8 mmol/L (3.5-5.1)
[2019-05-24] MEDS ORDERED: CLONAZEPAM 0.5 MG PO PRN (08:02)
--- NOTE | 2019-05-24 08:08 | RAD REPORT ---
EXAM DESCRIPTION: NM - Vent Perfusion VQ Scan - 05/24/2019 7:47 am CLINICAL HISTORY: cp, sob Chest pain, shortness of breath COMPARISON: Hepatobiliary System W/ Ph dated 01/15/2019; Chest Single View dated 05/23/2019 TECHNIQUE: 13.3mCi Xe-133 gas inhaled and 7.1mCi Tc-MAA IV. Planar ventilation scan was performed in posterior projection after Xe-133 gas inhalation (wash-in, e quilibrium, and wash-out phases) followed by perfusion scan with Tc-MAA IV in multiple projections. Examination is correlated with recent chest radiograph. FINDINGS: Normal ventilation with appropriate wash-out and no significant air-trapping. No mismatched segmental perfusion defect. IMPRESSION: Very low probability of acute pulmonary embolism.
--- NOTE | 2019-05-24 08:14 | RAD REPORT ---
EXAM DESCRIPTION: RAD - Chest Single View - 05/23/2019 10:30 pm CLINICAL HISTORY: CHEST PAIN Chest pain. COMPARISON: Chest Single View dated 03/20/2019; Chest Pa And Lat (2 Views) dated 11/11/2018; Chest Si ngle View dated 01/29/2017 FINDINGS: Portable technique limits examination quality. The lungs are mildly emphysematous but grossly clear. The heart is normal in size. No displaced fract ures. IMPRESSION: No acute intrathoracic process suspected.
[2019-05-24] MEDS ORDERED: FAMOTIDINE 20 MG/2 ML VIAL IV SCH (09:00)
[2019-05-24] MEDS ORDERED: METOPROLOL TARTRATE 50 MG PO SCH (09:00)
[2019-05-24] MEDS ORDERED: Enoxaparin 120 MG/0.8 ML SYR SQ SCH (09:00)
[2019-05-24] MEDS ORDERED: LACTOBACILLUS ACIDOPHILUS PO SCH (09:00)
[2019-05-24] MEDS ORDERED: HOME MED 1 EA UNK (Cholecalciferol (Vitamin D3) [Vitamin D3] 2,000 UNIT) PO SCH (09:00)
[2019-05-24] MEDS ORDERED: METOPROLOL TAR 50 MG TAB PO SCH (09:00)
[2019-05-24] MEDS ORDERED: ASPIRIN EC 81 MG TAB PO SCH (09:00)
[2019-05-24] MEDS ORDERED: ENOXAPARIN 100 MG/ML SYR SQ SCH (09:00)
[2019-05-24 09:39] VITALS: O2SAT 94
[2019-05-24] MEDS ORDERED: REGADENOSON 0.4 MG/5 ML SYR IV ONE (09:48)
--- NOTE | 2019-05-24 10:27 | EKG ---
Test Date: 2019-05-24 Test Time: 09:55:37 Warp Knitter Helper: MARIELENA MEASUREMENT RESULTS: Intervals: Rate: 63 OR: 162 QRSD: 96 QT: 444 QTc: 454 Bernard: P: 39 OR: 162 QRS: 54 T: 39 INTERPRETIVE STATEMENTS: Normal sinus rhythm Normal ECG Compared to ECG 03/20/2019 07:35:59 ST (T wave) deviation no longer present Electronically Signed On 05-24-19 10:26:43 ARTIFICIAL PEARL MAKER by Walter Yanes
--- NOTE | 2019-05-24 12:17 | CON ---
Identification: 63-year-old woman. History Of Present Illness: Mrs. Suarez came to the hospital because of very atypical chest pain along the inner border of her left breast, did not feel like pressure or tightness. No nausea, vomiting o r sweating. Since being here, her EKGs and enzymes are normal. She had a nuclear stress test in Nov that was normal. She does not use tobacco. Does not have dyslipidemia or diabetes. Outpatient me dications are clonazepam, vitamin D, metoprolol, lactobacillus. She has palpitation. She is on a 30 -day monitor, 5-day monitor. No diagnosis was made. She sees Dr. Moreno. She usually has nocturnal palpitation. She also has sleep apnea and uses a CPAP machine. Physical Examination: General: 5 feet 10 inches, 263 pounds. HEENT: Normal. Lungs: Clear. Cardiac: Within normal limits. Abdomen: Soft. Extremities: Normal. Laboratory Data: Her troponins are all less than 0.02. Hemoglobin and hematocrit are normal. Creat inine 0.67, blood sugar 91. TSH is 3.4. Impression: The patient probably is not having an acute coronary syndrome. We will do a stress test and echo. She has an undiagnosed arrhythmia that is probably spells of automatic atrial tachycardia . Effort has been made already to diagnose atrial fibrillation and it has not shown any atrial fibrilla tion so far. AYAAN/COBY Voice ID: [id number] Report ID: [id number]
[2019-05-24 14:35] VITALS: BP 135/58; TEMP 97.8
--- NOTE | 2019-05-24 14:53 | EKG ---
Test Date: 2019-05-23 Test Time: 22:06:29 Punch Machine Operator: HEATHER MEASUREMENT RESULTS: Intervals: Rate: 76 NH: 144 QRSD: 98 QT: 404 QTc: 454 [place]: P: 37 NH: 144 QRS: 65 T: 45 INTERPRETIVE STATEMENTS: Normal sinus rhythm Normal ECG Compared to ECG 03/20/2019 07:35:59 ST (T wave) deviation no longer present Electronically Signed On 05-24-19 14:51:53 ASTROBIOLOGIST by Walter Yanes
--- NOTE | 2019-05-24 20:18 | P.SSS ---
Patient History Date of Service: 05/24/19 Reason for admission: RIB PAIN History of Present Illness: MS. WILLARD WAS SENT BY DR DIANE FOR CHEST PAIN. ON FURTHER INTERROGATION SHE IS POINTING TO L COSTOCHONDRAL JOINT IN LOWER RIBS. IT IS ALSO TENDER ON TOUCH. SHE HAS HAD RECURRENT PALPITATIONS THAT HAS NOT BEEN CAPTURED TO BE ANYTHING SERIOUS YET. SHE WAKES UP AT NIGHT FROM PALPITATIONS AT TIMES. SHE DOES NOT SHOW ANXIETY AT THAT TIME. SHE HAS BEEN TO DR. SALAZAR, DR. DELGADO AND NOW DR. DIANE FOR IT. DR. DIANE SAYS HE MAY START HER ON MEDICATION EMPIRICALLY HE IS ALSO NOT ABLE TO DEFINE THE PATHOLOGY OF PALPITATIONS. TODAY I SEE HER THIS AM. SEE IS PAINFREE, VERY COMOFRTABLE AND JUST HAD V Q SCAN THAT WAS NORMAL. Allergies butorphanol tartrate [From Stadol] Allergy (Verified 05/24/19 01:04) Shortness of breath codeine Allergy (Verified 05/24/19 01:04) Nausea/Vomiting meperidine HCl [From Demerol] Allergy (Verified 05/24/19 01:04) Unknown morphine Allergy (Verified 05/24/19 01:04) Anaphylaxis oxytetracycline [From Terramycin] Allergy (Verified 05/24/19 01:04) vomiting oxytetracycline HCl [From Terramycin] Allergy (Verified 05/24/19 01:04) vomiting peanut Allergy (Verified 05/24/19 01:04) Shortness of breath promethazine [From Phenergan] Allergy (Verified 05/24/19 01:04) Anaphylaxis propoxyphene HCl [From Darvon] Allergy (Verified 05/24/19 01:04) Anaphylaxis shellfish derived Allergy (Verified 05/24/19 01:04) Shortness of breath Sulfa (Sulfonamide Antibiotics) Allergy (Verified 05/24/19 01:04) Unknown Bees Allergy (Uncoded 01/25/19 15:10) Anaphylaxis taramycin Allergy (Uncoded 01/25/19 15:10) Nausea/Vomiting Home Medications: Cholecalciferol (Vitamin D3) [Vitamin D3] 2,000 unit PO DAILY 05/24/19 Lactobacillus Acidophilus [Acidophilus Lactobacilli] 1 cap PO DAILY 05/24/19 Metoprolol Tartrate [Lopressor*] 50 mg pe PO DAILY 05/24/19 clonazePAM [Clonazepam] 0.5 mg PO BIDP PRN 05/24/19 - Past Medical/Surgical History Has patient received pneumonia vaccine in the past: Yes Diabetic: No -: HTN -: Sleep apnea -: c section -: lumpectomy both breast -: toe sx - Social History Smoking Status: Never smoker Alcohol use: No CD- Drugs: No Caffeine use: Yes Place of Residence: Home Review of Systems 10-point ROS is otherwise unremarkable Physical Examination - Vital Signs Temperature: 97.8 F Blood Pressure: 135/58 Pulse: 70 Respirations: 18 Pulse Ox (%): 94 - Physical Exam General: Alert, In no apparent distress HEENT: Atraumatic, PERRLA, Mucous membr. moist/pink, EOMI, Sclerae nonicteric Neck: Supple, 2+ carotid pulse no bruit, No LAD, Without JVD or thyroid abnormality Respiratory: Clear to auscultation bilaterally, Normal air movement Cardiovascular: Regular rate/rhythm, Normal S1 S2 Gastrointestinal: Normal bowel sounds, No tenderness Musculoskeletal: No tenderness Integumentary: No rashes Neurological: Normal gait, Normal speech, Normal strength at 5/5 x4 extr, Normal tone, Normal affect Lymphatics: No axilla or inguinal lymphadenopathy - Studies Laboratory Data (last 24 hrs) 05/23/19 22:10: PT 11.7, INR 0.99 05/23/19 22:10: WBC 6.4, Hgb 11.6 L, Hct 34.9 L, Plt Count 271 05/23/19 22:10: Sodium 142, Potassium 3.9, BUN 22 H, Creatinine 0.77, Glucose 108 H, Magnesium 2.0, Total Bilirubin 0.2, AST 11 L, ALT 23, Alkaline Phosphatase 76, Lipase 168 - Diagnosis (Problem(s)) (1) Atypical chest pain Status: Chronic Plan: THIS IS NOT A PAIN OF CARDIAC ORIGIN. EKG IS NORMAL. CE ARE NEG. DR. DIANE TO WORK ON PALPITATIONS. I MAY GIVE HER LEVSIN FOR SPASTIC PAIN. COSTOCHONDRITIS JUST NEEDS EDUCATION SO SHE DOES NOT REPORT TO PRICING CLERK OTHERWISE THEY WILL SEND HER BACK TO ER. - Disposition Disposition: ROUTINE DISCHARGE
== END 2019-05-24 10:21 | disposition home or self-care (01) ==
LOC: ER 21:48 → ERHOLD 23:07 → 2ND 05-24 00:20
PROVIDERS: ADMIT Internal Medicine; ATTEND Internal Medicine
DX: R07.89 Other chest pain (principal); R00.2 Palpitations; I10 Essential (primary) hypertension; Z91.030 Bee allergy status; Z91.010 Allergy to peanuts; Z88.2 Allergy status to sulfonamides
CPT/HCPCS: 93005 ×2; 85025 ×2; 80048 ×2; 36415; 83735; 85610; 85379; 80076; 84443; 81003; 84484 ×3; 83690; 83880; 71045; 78582; 96372; 99284; J1650; J7030; A9558; A9540; G0378 ×2; J2785

== ENCOUNTER 2020-08-11 16:11 | Emergency (ER) | payer OTHER ==
[2020-08-11 17:02] LABS: Urine Blood 3+ (Negative); Urine Glucose Trace (Negative); Urine Protein 3+ (Negative)
[2020-08-11 17:57] LABS: Absolute Lymphocytes (CBC) 1.3 K/uL (0.7-4.9); Basophils % 0.4 % (0-1.3); Hematocrit 35.5 % (36.0-45.0); Lymphocytes % 13.6 % (15.3-44.8); MPV 8.5 fL (7.6-11.3)
[2020-08-11 18:08] LABS: Bilirubin Direct 0.1 mg/dL (0-0.2); Bilirubin Total 0.5 mg/dL (0.2-1.0); Potassium 3.8 mmol/L (3.5-5.1); Protein, Total 7.8 g/dL (6.4-8.2)
--- NOTE | 2020-08-11 18:20 | RAD REPORT ---
EXAM DESCRIPTION: CT - Abdomen Pelvis Wo Contrast - 08/11/2020 5:44 pm CLINICAL HISTORY: Abdominal pain. ABD PAIN COMPARISON: Abdomen Pelvis Wo Contrast dated 06/25/2016 TECHNIQUE: CT imaging of the abdomen and pelvis was performed without contrast. Solid organ, bowel a nd vascular assessment is limited due to lack of IV and oral contrast. All CT scans are performed using dose optimization technique as appropriate and may include automated exposure control or mA/KV adjustment according to patient size. FINDINGS: The lower lung salazar are clear.Cholecystectomy. The liver, spleen, pancreas, adrenal glands and kidneys are within normal limits for a limited non-co ntrast examination. No bowel obstruction, free air, free fluid or abscess. The appendix is not identified as a discrete structure, however, no secondary findings of appendicitis are identified. The osseous structures are within normal limits. IMPRESSION: No acute intra-abdominal or pelvic findings. A limited non-contrast examination was performed as detailed.
[2020-08-11 18:36] LABS: Urine Bacteria >50 /HPF (<20); Urine RBC 20-50 /HPF (NONE SEEN)
--- NOTE | 2020-08-11 18:41 | ER ---
Nurse's Notes [facility] Name: Alessandra Suarez Age: 64 yrs Sex: Female : 1955 Arrival Date: 08/11/2020 Time: 16:12 Bed 19 Private MD: Diagnosis: Urinary tract infection, site not specified Presentation: 08/11 16:50 Chief complaint: Patient states: Burning in abd, chest and L flank that has been ss intermittent for months. Urinary dribbling that began 2 days ago. Coronavirus screen: Client denies travel out of the [place] in the last 14 days. Ebola Screen: Patient denies exposure to infectious person. Patient denies travel to an Ebola-affected area in the 21 days before illness onset. Initial Sepsis Screen: Does the patient meet any 2 criteria? No. Patient's initial sepsis screen is negative. Does the patient have a suspected source of infection? No. Patient's initial sepsis screen is negative. Risk Assessment: Do you want to hurt yourself or someone else? Patient reports no desire to harm self or others. Onset of symptoms is unknown. 16:50 Method Of Arrival: Ambulatory ss 16:50 Acuity: KRISTA 3 ss Historical: - Allergies: 16:54 Codeine; ss 16:54 Darvon; ss 16:54 Phenergan; ss 16:54 Stadol; ss 16:54 Sulfa (Sulfonamide Antibiotics); ss 16:54 Talwin; ss 16:54 teramycin; ss 16:54 SHELLFISH; ss - PMHx: 16:54 Anxiety; Hypertension; ss - PSHx: 16:54 ; Cholecystectomy; ss - Immunization history:: Adult Immunizations up to date. - Social history:: Smoking status: Patient denies any tobacco usage or history of. Screenin:37 Abuse screen: Denies threats or abuse. Nutritional screening: No deficits noted. bw Tuberculosis screening: No symptoms or risk factors identified. Fall Risk None identified. Assessment: 17:10 Pain: Complains of pain in urinary. Neuro: No deficits noted. Cardiovascular: No bw deficits noted. Respiratory: No deficits noted. GI: No deficits noted. : Reports burning with urination, urgency, urinary frequency. EENT: No deficits noted. Derm: No deficits noted. Vital Signs: 16:50 Resp 16; Weight 122.47 kg; Height 5 ft. 107 in. (424.18 cm); ss 18:37 BP 162 / 82; Pulse 83; Resp 18; Temp 98.1; Pulse Ox 97% on R/A; bw 16:50 Body Mass Index 6.81 (122.47 kg, 424.18 cm) ED Course: 16:12 Patient arrived in ED. ds1 16:18 Negin Sawant FNP-C is [facility]. kb 16:18 Grey Garcia MD is Attending Physician. kb 16:53 Triage completed. ss 16:54 Arm band placed on right wrist. ss 17:02 Urine collected: clean catch specimen, cloudy, tea colored. eb 17:10 Kadie Piper, RN is Primary Nurse. bw 17:44 CT Abd/Pelvis - Without Contrast In Process Unspecified. EDMS 18:37 Patient has correct armband on for positive identification. Call light in reach. Side bw rails up X 1. Pulse ox on. NIBP on. Warm blanket given. 18:37 No provider procedures requiring assistance completed. Inserted saline lock: 20 gauge bw in left antecubital area, using aseptic technique. Blood collected. 19:22 IV discontinued, intact, bleeding controlled, No redness/swelling at site. Pressure sf dressing applied. Administered Medications: 18:59 Drug: Rocephin (cefTRIAXone) 1 grams Route: IV; Rate: calculated rate; Site: left bw antecubital; 19:05 Follow up: IV Status: Completed infusion; IV Intake: 10ml sf 19:16 Follow up: Response: No adverse reaction sf Intake: 19:05 IV: 10ml; Total: 10ml. sf Outcome: 18:41 Discharge ordered by . kb 19:22 Discharged to home ambulatory. sf 19:22 Condition: stable 19:22 Discharge instructions given to patient, Instructed on discharge instructions, follow up and referral plans. medication usage, Demonstrated understanding of instructions, follow-up care, medications, Prescriptions given X 2. 19:23 Patient left the ED. sf Addendum: 08/15/2020 11:49 Addendum: Culture Results: Positive urine culture. Bacteria is resistant to, has a a5 intermediate sensitivity, or is not tested against prescribed antibiotics. Report given to BARB for further evaluation and then to skin therapist for follow up with patient. Prescription called-in to pharmacy of choice. to [facility] in [place], [place]. Called in Augmentin 875/125mg PO BID x 10 days per Ramy Andre NP. Pt instructed to stop taking Macrobid. Signatures: Dispatcher [employer] EDNegin Arroyo, TREE FELLER OPERATOR-C TREE FELLER OPERATOR-Ckb BrooksEsme ds1 Jael Howard RN RN aa5 Anabell Babin RN RN ss Botello, Elizabeth eb Fitzpatrick, Steven, RN RN sf Kadie Piper RN RN
--- NOTE | 2020-08-11 18:41 | EDPHYS ---
Physician Documentation [facility] Name: Alessandra Suarez Age: 64 yrs Sex: Female : 1955 Arrival Date: 08/11/2020 Time: 16:12 Bed 19 Private MD: ED Physician Grey Garcia HPI: 08/11 20:09 This 64 yrs old Female presents to ER via Ambulatory with complaints of kb Urinary Frequency, Pain With Urination. 20:10 The patient presents with urinary symptoms, dysuria, frequency. The patient has not kb experienced similar symptoms in the past. The patient has not recently seen a physician. 20:11 Onset: The symptoms/episode began/occurred 2 day(s) ago. Modifying factors: The kb symptoms are alleviated by nothing, the symptoms are aggravated by urinating. Associated signs and symptoms: Pertinent positives: dysuria, urinary frequency. Severity of symptoms: At their worst the symptoms were moderate, in the emergency department the symptoms are unchanged. Pt reports abd pain and cramping for 2 years. States she had multiple tests done prior to the pandemic starting then it went on hold. Has appt with GI in [place] on Friday to have more testing done. Came in today for burning with urination, frequency, urgency and small amounts. . Historical: - Allergies: 16:54 Codeine; ss 16:54 Darvon; ss 16:54 Phenergan; ss 16:54 Stadol; ss 16:54 Sulfa (Sulfonamide Antibiotics); ss 16:54 Talwin; ss 16:54 teramycin; ss 16:54 SHELLFISH; ss - PMHx: 16:54 Anxiety; Hypertension; ss - PSHx: 16:54 ; Cholecystectomy; ss - Immunization history:: Adult Immunizations up to date. - Social history:: Smoking status: Patient denies any tobacco usage or history of. ROS: 20:09 Constitutional: Negative for fever, chills, and weight loss, Cardiovascular: Negative kb for chest pain, palpitations, and edema, Respiratory: Negative for shortness of breath, cough, wheezing, and pleuritic chest pain, MS/Extremity: Negative for injury and deformity, Skin: Negative for injury, rash, and discoloration, Neuro: Negative for headache, weakness, numbness, tingling, and seizure. 20:09 Abdomen/GI: Positive for abdominal pain, Negative for nausea, vomiting, and diarrhea. 20:09 : Positive for urinary symptoms, urinary frequency, small amounts, burning with urination. Exam: 20:09 Constitutional: This is a well developed, well nourished patient who is awake, alert, kb and in no acute distress. Head/Face: Normocephalic, atraumatic. Cardiovascular: Regular rate and rhythm with a normal S1 and S2. No gallops, murmurs, or rubs. No pulse deficits. Respiratory: Respirations even and unlabored. No increased work of breathing, no retractions or nasal flaring. Skin: Warm, dry with normal turgor. Normal color. MS/ Extremity: Pulses equal, no cyanosis. Neurovascular intact. Full, normal range of motion. Neuro: Awake and alert, GCS 15, oriented to person, place, time, and situation. Moves all extremities. Normal gait. 20:09 Abdomen/GI: Inspection: abdomen appears normal, Bowel sounds: normal, in all quadrants, Palpation: soft, in all quadrants, mild abdominal tenderness, in all quadrants. Vital Signs: 16:50 Resp 16; Weight 122.47 kg; Height 5 ft. 107 in. (424.18 cm); ss 18:37 BP 162 / 82; Pulse 83; Resp 18; Temp 98.1; Pulse Ox 97% on R/A; bw 16:50 Body Mass Index 6.81 (122.47 kg, 424.18 cm) ss MDM: 16:45 Patient medically screened. [facility] 20:08 Data reviewed: vital signs, nurses notes. Data interpreted: Pulse oximetry: on room air kb is 97 %. Interpretation: normal. Counseling: I had a detailed discussion with the patient and/or guardian regarding: the historical points, exam findings, and any diagnostic results supporting the discharge/admit diagnosis, lab results, radiology results, the need for outpatient follow up, a family practitioner, to return to the emergency department if symptoms worsen or persist or if there are any questions or concerns that arise at home. 08/11 16:19 Order name: Urine Microscopic Only; Complete Time: 18:38 kb 08/11 17:02 Order name: Urine Dipstick-Ancillary; Complete Time: 17:11 EDMS 08/11 17:11 Order name: Basic Metabolic Panel; Complete Time: 18:08 kb 08/11 17:11 Order name: CBC with Diff; Complete Time: 18:08 kb 08/11 17:11 Order name: Hepatic Function; Complete Time: 18:08 kb 08/11 17:11 Order name: Lipase; Complete Time: 18:08 kb 08/11 16:19 Order name: Urine Dipstick-Ancillary (obtain specimen); Complete Time: 17:04 kb 08/11 17:11 Order name: IV Saline Lock; Complete Time: 18:38 kb 08/11 17:11 Order name: Labs collected and sent; Complete Time: 18:38 kb 08/11 17:11 Order name: CT Abd/Pelvis - Without Contrast; Complete Time: 18:20 kb 08/11 18:38 Order name: Urine Culture EDMS Administered Medications: 18:59 Drug: Rocephin (cefTRIAXone) 1 grams Route: IV; Rate: calculated rate; Site: left bw antecubital; 19:05 Follow up: IV Status: Completed infusion; IV Intake: 10ml sf 19:16 Follow up: Response: No adverse reaction sf Disposition: 08/12 07:32 Co-signature as Attending Physician, Grey Garcia MD I agree with the assessment and jose plan of care. Disposition: 08/11/20 18:41 Discharged to Home. Impression: Urinary tract infection, site not specified. - Condition is Stable. - Discharge Instructions: Urinary Tract Infection, Adult, [id number]. - Prescriptions for Pyridium 200 mg Oral Tablet - take 1 tablet by ORAL route every 8 hours for 3 days; 9 tablet. Macrobid 100 mg Oral Capsule - take 1 capsule by ORAL route every 12 hours for 10 days; 20 capsule. - Medication Reconciliation Form, Thank You Letter, Antibiotic Education, Prescription Opioid Use form. - Follow up: Emergency Department; When: As needed; Reason: Worsening of condition. Follow up: Private Physician; When: 2 - 3 days; Reason: Recheck today's complaints, Continuance of care, Re-evaluation by your physician. Signatures: Dispatcher [employer] EDMS Negin Sawant, HIDE OR SKIN BUFFER-C HIDE OR SKIN BUFFER-Grey Knox MD MD cha Smirch, Shelby, RN RN ss Fitzpatrick, Steven, RN RN sf Webb, Bethany, RN RN Corrections: (The following items were deleted from the chart) 08/11 19:23 18:41 08/11/2020 18:41 Discharged to Home. Impression: Urinary tract infection, site sf not specified. Condition is Stable. Forms are Medication Reconciliation Form, Thank You Letter, Antibiotic Education, Prescription Opioid Use. Follow up: Emergency Department; When: As needed; Reason: Worsening of condition. Follow up: Private Physician; When: 2 - 3 days; Reason: Recheck today's complaints, Continuance of care, Re-evaluation by your physician. kb
[2020-08-11] MEDS ORDERED: CEFTRIAXONE/SWI 1gm 1 GM/10 ML SYR ONE (19:09)
[2020-08-11 19:57] VITALS: BP 162/82; TEMP 98.1; O2SAT 97
== END 2020-08-11 19:23 | disposition home or self-care (01) ==
LOC: ER 16:11
DX: N39.0 Urinary tract infection, site not specified (principal); I10 Essential (primary) hypertension; Z88.2 Allergy status to sulfonamides; Z88.5 Allergy status to narcotic agent; Z88.8 Allergy status to other drugs, medicaments and biological substances; Z91.013 Allergy to seafood
CPT/HCPCS: 87088; 85025; 87086; 80048; 36415; 80076; 87077; 87186; 83690; 74176; 96374; 99284; J0696; 81003; 81015

== ENCOUNTER 2021-07-09 15:58 | Emergency (ER) | payer OTHER ==
--- OUTSIDE RECORDS SUMMARY | 2021-07-09 16:12 | XMS REPORT | Continuity of Care Document ---
:[address] [facility] t Address [address] [place] [address] Care Team Providers Name Role Phone Galdino Attending Clinician Unavailable Galdino Admitting Clinician Unavailable UNDEFINED Admitting Clinician Unavailable Payers Payer Name Policy Type Policy Number Effective Date Expiration Date S ource Problems This patient has no known problems. Allergies, Adverse Reactions, Alerts Allergy Allergy Status Severity Reaction(s) Onset Inactive Treating Comm ents Source Name Type Date Date Clinician Sulfa DA Active [place] VOMITING [facility] (Sulfona 5-10 [facility] Antibiot [facility] ics[facility] [place] peanut FA Active SV ITCHY [facility] THROAR/WHEEZ 5-10 [facility] ING [facility]: [facility] [place] codeine DA Active SV HEADACHE [facility] 5-10 [facility] [place] propoxyp DA Active MO VOMITING [facility] hene 5-10 [facility]: [facility] [place] pentazoc DA Active MO VOMITING [facility] ine 5-10 [facility] 00:[facility]: [facility] [place] epinephr DA Active MO HEART RACING 2020-0 HC A ine 5-10 [facility] 00:[facility]: [facility] [place] oxytetra DA Active MO VOMITING 2020-0 [facility] cycline 5-10 [facility] 00:[facility]: [facility] [place] prometha DA Active MO VOMITING/HEA 2020-0 HC A zine DACHE 5-10 [facility] 00:[facility]: [facility] [place] meperidi DA Active SV BEHAVIOR 2020-0 [facility] ne CHANGE 5-10 [facility] 00:[facility]: [facility] [place] butorpha DA Active SV AFFECTS 2020-0 [facility] nol BREATHING 5-10 [facility] 00:[facility]: [facility] [place] bee DA Active SV EXTREME 2020-0 [facility] venom SWELLING 5-10 [facility] protein 00:00: [facility]osp[facility] (honey 00 l of bee) [place] shellfis FA Active SV THROAT 2020-0 [facility] h ITCHING/WHEE 5-10 [facility] derived ZING 00:00: [facility] [place] Sulfa DA Active MO 2020-0 [facility] (Sulfona 5-10 [facility] mide 00:00: [facility]osp[facility] Antibiot 00 l of ics) [place] peanut FA Active SV 2020-0 [facility] 5-10 [facility] 00:[facility]: [facility] [place] codeine DA Active SV 2020-0 [facility] 5-10 [facility] 00:00: [facility] [place] propoxyp DA Active MO 2020-0 [facility] hene 5-10 [facility] 00:00: [facility] [place] pentazoc DA Active MO 2020-0 [facility] ine 5-10 [facility] 00:00: [facility] [place] epinephr DA Active MO 2020-0 [facility] ine 5-10 [facility] 00:00: [facility] [place] oxytetra DA Active MO 2020-0 [facility] cycline 5-10 [facility] 00:00: [facility] [place] prometha DA Active MO 2020-0 [facility] zine 5-10 [facility] 00:00: [facility] [place] meperidi DA Active SV 2020-0 [facility] ne 5-10 [facility] 00:00: [facility] [place] butorpha DA Active SV 2021-0 [facility] nol 5-10 [facility] 00:00: [facility] [place] bee DA Active SV 2020-0 [facility] venom 5-10 [facility] protein 00:00: [facility]osp[facility] (honey 00 l of bee) [place] shellfis FA Active SV 2020-0 [facility] h 5-10 [facility] derived 00:00: [facility] [place] Medications This patient has no known medications. Procedures Procedure Date / Time Performed Performing Clinician Henry mccord [id number] 2020-09-18 00:00:00 [email or web address] [facility] [place] [facility] Encounters Start End Encounter Admission Attending Care Care Encounter Source Date/Time Date/Time Type Type Clinicians Facility Department ID 2020-09-18 Inpatient ОЛЕГ Santiago ADMI [id number] [facility] 17:15:00 Jadiel [id number] [facility] 2020-09-18 Inpatient ОЛЕГ Santiago ADMI [id number] [facility] 09:40:00 Jadiel [id number] [place] [facility] 2020-09-11 2020-09-11 Outpatient GARY AhmadiWH SIST [id number] [facility] 18:40:00 18:40:00 Jadiel [id number] [facility] [place] 2020-09-11 2020-09-11 Outpatient GARY AhmadiCL LABO [id number] [facility] 13:46:00 13:46:00 Jadiel [id number] [facility] 2020-09-11 2020-09-11 Outpatient GARY AhmadiTO SURG [id number] 0-20 [facility] 10:05:00 10:05:00 Jadiel [id number] [facility] Results Test Description Test Time Test Comments Results Result Comments Source GLUBED 2020-09-26 09:35:00 Test Item Value Reference Range Interpretation Comme nts GLUBED (test code = GLUBED) 97 mg/dL 60-125 N BASIC METABOLIC [id number] 06:08:00 Test Item Value Reference Range Interpretation Comments SODIUM (test code = 142 mmol/L 136-145 N NA) POTASSIUM (test code = 3.8 mmol/L 3.5-5.1 N K) CHLORIDE (test code = 105.0 mmol/L 98-107 N CL) CARBON DIOXIDE (test 27.3 mmol/L 21-32 N code = CO2) GLUCOSE (test code = 99 mg/dL 70-110 N GLU) BLOOD UREA NITROGEN 11 mg/dL 7-18 N (test code = BUN) GLOMERULAR FILTRATION 102.0 >60 Unit o f measure: RATE (test code = GFR) mL/mi n/1.73 [id number] Range:Healthy Adults >90 mL/min/1.73 m2 For Chronic Kidney Disease: St age II Mild Decrease in GFR 60-90 St age III Moderate Decrease in GFR 30-59 Stage IV Severe Decre ase in GFR 15- 29 Stage V Kidney Failure <15 CREATININE (test code 0.59 mg/dL 0.55-1.30 N = CREAT) CALCIUM (test code = 8.1 mg/dL 8.2-10.1 L CA) COMPREHENSIVE METABOLIC [id number] 19:51:00 Test Item Value Reference Range Interpretation Comments SODIUM (test code = 142 mmol/L 136-145 N NA) POTASSIUM (test code = 3.5 mmol/L 3.5-5.1 N K) CHLORIDE (test code = 104.0 mmol/L 98-107 N CL) CARBON DIOXIDE (test 27.0 mmol/L 21-32 N code = CO2) GLUCOSE (test code = 107 mg/dL 70-110 N GLU) BLOOD UREA NITROGEN 12 mg/dL 7-18 N (test code = BUN) GLOMERULAR FILTRATION 88.1 >60 Unit o f measure: RATE (test code = GFR) mL/mi n/1.73 [id number] Range:Healthy Adults >90 mL/min/1.73 m2 For Chronic Kidney Disease: St age II Mild Decrease in GFR 60-90 St age III Moderate Decrease in GFR 30-59 Stage IV Severe Decre ase in GFR 15- 29 Stage V Kidney Failure <15 CREATININE (test code 0.67 mg/dL 0.55-1.30 N = CREAT) TOTAL PROTEIN (test 6.1 g/dL 6.4-8.2 L code = PROT) ALBUMIN (test code = 3.2 g/dL 3.4-5.0 L ALB) GLOBULIN (test code = 2.9 g/dL 2.2-4.2 N GLOB) ALBUMIN/GLOBULIN RATIO 1.1 0.7-2.0 N (test code = A/G) CALCIUM (test code = 7.9 mg/dL 8.2-10.1 L CA) BILIRUBIN TOTAL (test 0.60 mg/dL 0.2-1.00 N code = BILT) SGOT/AST (test code = 15.0 U/L 15-37 N AST) SGPT/ALT (test code = 16.0 U/L 12-78 N Please note new ALT) normal range. ALKALINE PHOSPHATASE 70 U/L 46-116 N TOTAL (test code = ALKP) [id number] 19:51:00 Test Item Value Reference Range Interpretation Comments MAGNESIUM (test code = MAG) 2.4 mg/dL 1.8-2.4 N CBC W/AUTO [id number] 18:58:00 Test Item Value Reference Range Interpretation Comments WHITE BLOOD CELL (test code = WBC) 6.2 K/mm3 5.8-11.0 N RED BLOOD CELL (test code = RBC) 3.09 M/mm3 4.2-5.4 L HEMOGLOBIN (test code = HGB) 8.9 g/dL 12-16 L HEMATOCRIT (test code = HCT) 27.0 % 37-47 L MEAN CELL VOLUME (test code = MCV) 87 fL 80-98 N MEAN CELL HGB (test code = MCH) 28.8 pg 27-34 N MEAN CELL HGB CONCENTRATION (test 33.0 g/dL 30.8-34.1 N code = MCHC) RED CELL DISTRIBUTION WIDTH (test 14.0 % 11-16 N code = RDW) PLT (test code = PLT) 252 K/mm3 130-400 N MEAN PLATELET VOLUME (test code = 10.2 fL 8.9-12.1 N MPV) NEUTROPHIL % (test code = NT%) 65.9 % 45-70 N LYMPHOCYTE % (test code = LY%) 21.4 % 20-40 N MONOCYTE % (test code = MO%) 9.9 % 3-10 N EOSINOPHIL % (test code = EO%) 2.1 % 1-5 N BASOPHIL % (test code = BA%) 0.5 % 0.0-1.1 N NEUTROPHIL # (test code = NT#) 4.07 K/mm3 2.00-7.50 N LYMPHOCYTE # (test code = LY#) 1.32 K/mm3 1.50-4.00 L MONOCYTE # (test code = MO#) 0.61 K/mm3 0.2-0.8 N EOSINOPHIL # (test code = EO#) 0.13 K/mm3 0.04-0.4 N BASOPHIL # (test code = BA#) 0.03 K/mm3 0.02-0.10 N MANUAL DIFF REQUIRED (test code = NO MANUAL DIFF MDIFF) NUCLEATED RED BLOOD CELL (test 0 % 0-0 N code = NRBC) - XR ABDOMEN 1 [id number] 16:13:00 [facility] : 1955 Sex: F Patient Name: INDIRA WILLARD Unit No: [id number] EXAMS: CPT CODE: [id number] XR ABDOMEN 1 V 16510 IMAGES PROVIDED: 1 FINDINGS: Mild gaseous distention of the bowel is demonstrated which could represent an adynamic ileus. No evidence of small bowel obstruction. Cholecystectomy clips are present. No acute osseous abnormality. Multilevel lumbar spondylosis is visualized. IMPRESSION: Findings suggestive of adynamic ileus. at 1613 Reported and signed by: Raheel Kwon M.D. CC: Jadiel Ahmadi MD; Racheal White NP Technologist: Roman Delarosa(Bin) Transcribed D/ (1613) Km.[facility] NAME: INDIRA WILLARD [address] [facility] PHYS: [email or web address] - Jadiel Ahmadi : 1955 AGE: 64 SEX: F [place], [place] [address] LOC: Y.523 A PHONE #: [phone] EXAM DATE: 09/21/2020 STATUS: ADM IN FAX #: [phone] RAD #: D/C DT PAGE 1 Signed Report Patient Name: INDIRA WILLARD Unit No: [id number] EXAMS: CPT CODE: [id number] XR ABDOMEN 1 V 03622 <Continued> Orig Print D/T: S: 09/21/2020 (1616) [facility] NAME: INDIRA WILLARD [address] [facility] PHYS:[email or web address] - Vonda Ahmadios Yobany : 1955 AGE: 64 SEX: F [place], [place] [address] LOC: Y.523 A PHONE #: [phone] EXAM DATE: 09/21/2020 STATUS: ADM IN FAX #: [phone] RAD #: D/C DT PAGE 2 Signed ReportHGB [id number] 05:57:00 Test Item Value Reference Range Interpretation Comments HEMOGLOBIN (test code = HGB) 9.7 g/dL 12-16 L HEMATOCRIT (test code = HCT) 29.1 % 37-47 L SPECIMEN COMMENT: POD #1Novel Coronavirus 2019 [id number] 13:07:00 Test Item Value Reference Range Interpretation Comments Novel Coronavirus Negative Negative Positive r esults are 2019 Inhouse (test indicativ e of the presence code = COVNONPUI) ofSARS-CoV -2 RNA, clinical correlation wit h patient historyand othe r diagnostic info rmation is necessary to determinepatien t infection status. Positiv e results do not rule out bacterial infection or co -infection with other viru ses. Negative result s do not preclude SARS-C oV-2 infection andsh ould not be used as the devin e basis for patient managementdecis ions. Negative result s must be combined with otherclinical observations, p atient history, and epidemiological information . Detection of SARS-CoV-2 RNA may be affe cted bysample collec tion methods, storag e conditions, and /or stageof infection. Mary l RNA mutations, vacc inations, antiviraltherap eutics, antibiotics, chemotherapeuti c orimmunosuppres georgette drugs have not been e valuated for effectson d etection. Results are for the identification of SARS-CoV-2 RNA usingthe Hill M2000 Sy stem under the FDA Emergen cy UseAuthorizatio n. The testing is perf ormed by personneltraine d in the procedures for the Hill M2000 molecular diagnostic SARS-CoV-2 assa y in vitro. Novel Coronavirus 2019 [id number] 13:06:00 Test Item Value Reference Range Interpretation Comments Novel Coronavirus Negative Negative Positive r esults are 2019 Inhouse (test indicativ e of the presence code = COVNONPUI) ofSARS-CoV -2 RNA, clinical correlation wit h patient historyand othe r diagnostic info rmation is necessary to determinepatien t infection status. Positiv e results do not rule out bacterial infection or co -infection with other viru ses. Negative result s do not preclude SARS-C oV-2 infection andsh ould not be used as the devin e basis for patient managementdecis ions. Negative result s must be combined with otherclinical observations, p atient history, and epidemiological information . Detection of SARS-CoV-2 RNA may be affe cted bysample collec tion methods, storag e conditions, and /or stageof infection. Mary l RNA mutations, vacc inations, antiviraltherap eutics, antibiotics, chemotherapeuti c orimmunosuppres georgette drugs have not been e valuated for effectson d etection. Results are for the identification of SARS-CoV-2 RNA usingthe Hill M2000 Sy stem under the FDA Emergen cy UseAuthorizatio n. The testing is perf ormed by personneltraine d in the procedures for the Hill M2000 molecular diagnostic SARS-CoV-2 assa y in vitro. AB HIV [id number] 22:30:00 Test Item Value Reference Range Interpretation Comments AB HIV 1 (test code NONREACTIVE NONREACTIVE DONE AT: [facility] = HIV1AB) [facility] [address] [place], [place] [address]Done by [employer] 4th Gen HIV Ag/Ab C ombo Screen AB HIV 1 [id number] 22:29:00 Test Item Value Reference Range Interpretation Comments AB HIV 1 2 (test NONREACTIVE NONREACTIVE Done by Jenifer Chavesaur code = [id number]) 4th Gen HIV Ag/Ab Combo Screen COMPREHENSIVE METABOLIC [id number] 16:05:00 Test Item Value Reference Range Interpretation Comments SODIUM (test code = 142 mmol/L 136-145 N NA) POTASSIUM (test code = 4.0 mmol/L 3.5-5.1 N K) CHLORIDE (test code = 104.0 mmol/L 98-107 N CL) CARBON DIOXIDE (test 28.6 mmol/L 21-32 N code = CO2) GLUCOSE (test code = 90 mg/dL 70-110 N GLU) BLOOD UREA NITROGEN 16 mg/dL 7-18 N (test code = BUN) GLOMERULAR FILTRATION 92.8 >60 Unit o f measure: RATE (test code = GFR) mL/mi n/1.73 [id number] Range:Healthy Adults >90 mL/min/1.73 m2 For Chronic Kidney Disease: St age II Mild Decrease in GFR 60-90 St age III Moderate Decrease in GFR 30-59 Stage IV Severe Decre ase in GFR 15- 29 Stage V Kidney Failure <15 CREATININE (test code 0.64 mg/dL 0.55-1.30 N = CREAT) TOTAL PROTEIN (test 7.1 g/dL 6.4-8.2 N code = PROT) ALBUMIN (test code = 4.1 g/dL 3.4-5.0 N ALB) GLOBULIN (test code = 3.0 g/dL 2.2-4.2 N GLOB) ALBUMIN/GLOBULIN RATIO 1.4 0.7-2.0 N (test code = A/G) CALCIUM (test code = 8.9 mg/dL 8.2-10.1 N CA) BILIRUBIN TOTAL (test 0.40 mg/dL 0.2-1.00 N code = BILT) SGOT/AST (test code = 16.0 U/L 15-37 N AST) SGPT/ALT (test code = 32.0 U/L 12-78 N Please note new ALT) normal range. ALKALINE PHOSPHATASE 78 U/L 46-116 N TOTAL (test code = ALKP) PROTHROMBIN [id number] 16:05:00 Test Item Value Reference Range Interpretation Comments PROTHROMBIN TIME 12.2 secs 10.1-12.5 N PATIENT (test code = PTP) INTERNATIONAL NORMAL 1.07 <2.0 RECOMME NDED THERAPEUTIC RATIO (test code = RANGE FOR ORAL INR) ANTICOAGULANTTR EATMENT: CONDI TION INRProphylaxis of venous thrombos is in 2.0 - 3.0 high-risk medic al or surgical patientsTreatme nt of venous thrombos is 2.0 - 3.0Prevention o f embolism 2.0 - 3.0Prevention o f recurrent embol ism, or 3.0 - 4. 5 patients with mechanical pros thetic intravascular v espino IS PATIENT ON ANTICOAGULANTS ? NHas Lab been notified if Patient is on Heparin Drip? NOTHROMBOPLASTIN TIME [id number] 16:05:00 Test Item Value Reference Range Interpretation Comments PTT ACTIVATED (test code = APTT) 36.6 secs 24.9-37.0 N IS PATIENT ON ANTICOAGULANTS ? NHas Lab been notified if Patient is on Heparin Drip? NOCBC W/AUTO [id number] 15:49:00 Test Item Value Reference Range Interpretation Comments WHITE BLOOD CELL (test code = WBC) 5.2 K/mm3 5.8-11.0 L RED BLOOD CELL (test code = RBC) 3.83 M/mm3 4.2-5.4 L HEMOGLOBIN (test code = HGB) 11.2 g/dL 12-16 L HEMATOCRIT (test code = HCT) 34.2 % 37-47 L MEAN CELL VOLUME (test code = MCV) 89 fL 80-98 N MEAN CELL HGB (test code = MCH) 29.2 pg 27-34 N MEAN CELL HGB CONCENTRATION (test 32.7 g/dL 30.8-34.1 N code = MCHC) RED CELL DISTRIBUTION WIDTH (test 14.2 % 11-16 N code = RDW) PLT (test code = PLT) 280 K/mm3 130-400 N MEAN PLATELET VOLUME (test code = 10.7 fL 8.9-12.1 N MPV) NEUTROPHIL % (test code = NT%) 55.6 % 45-70 N LYMPHOCYTE % (test code = LY%) 31.3 % 20-40 N MONOCYTE % (test code = MO%) 10.0 % 3-10 N EOSINOPHIL % (test code = EO%) 2.3 % 1-5 N BASOPHIL % (test code = BA%) 0.6 % 0.0-1.1 N NEUTROPHIL # (test code = NT#) 2.90 K/mm3 2.00-7.50 N LYMPHOCYTE # (test code = LY#) 1.63 K/mm3 1.50-4.00 N MONOCYTE # (test code = MO#) 0.52 K/mm3 0.2-0.8 N EOSINOPHIL # (test code = EO#) 0.12 K/mm3 0.04-0.4 N BASOPHIL # (test code = BA#) 0.03 K/mm3 0.02-0.10 N MANUAL DIFF REQUIRED (test code = NO MANUAL DIFF MDIFF) NUCLEATED RED BLOOD CELL (test 0 % 0-0 N code = NRBC) - USG NDL PLACEMENT (Bxg/Asp)2020-09-11 13:31:00 [facility] : 1955 Sex: F Patient Name: INDIRA WILLARD Unit No: [id number] EXAMS: CPT CODE: [id number] USG NDL PLACEMENT (Bxg/Asp) 25865 INDICATION: Left knee pain. PROCEDURE: Ultrasound guided cryoneurolysis (Iovera) of the left anterior femoral cutaneous nerve, medial femoral cutaneous nerve, and the superior and inferior branches of the infrapatellar branch of the saphenous nerve. TOWEL FOLDER: Dr. Kwon. MEDICATIONS: 1 % Lidocaine local anesthesia CONTRAST: None. COMPLICATION: None immediately evident. DESCRIPTION: After the procedure, including indication and potential complications had been discussed with the patient and questions answered, written informed consent was obtained. The tammy ent was then taken to the ultrasound suite and placed on the table in supine position with their treatment leg fully extended. The skin of the left knee was evaluated sonographically. The skin over the anterior femoral cutaneous nerve, medial femoral cutaneous nerve, and the superior and inferior branches of the infrapatellar branch of the saphenous nerve was marked. The skin was then prepped and draped sterilely. A time out was performed. After achieving 1% Lidocaine local anesthesia, the 55mm Smart Tip Iovera cryoneurolysis probe was inserted into the skin at the sites where the nerves had been identified by ultrasound, andthe treatment was initiated. The duration of each treatment cycle was 1 minute and 10 seconds. The patent's skin was cleaned and the wound was covered with a band-aid. The patient was instructed to stand and mobilize the knee joint. No immediate complication were observed. The patient tolerated the procedure well and was subsequently discharged in stable condition with instructions for follow up. Preprocedural pain level: 3/ 10 Postprocedural pain level: 3 10 IMPRESSION: Cryoneurolysis of the left anterior femoral cutaneous nerve, medial femoral cutaneous nerve, and the sup erior and inferior branches of the infrapatellar branch of the saphenous nerve as above. at 1331 Reported and signed by: Raheel Kwon M.D. [facility] NAME: INDIRA WILLARD [address] [place] [address] PHYS: Jadiel Hartman : 1955 AGE: 64 SEX: F [place], [place] [address] LOC: Y.RAD PHONE #: [phone] EXAM DATE: 09/11/2020 STATUS: REG CLI FAX #: [phone] RAD #: D/C DT PAGE 1 Signed Report (CONTINUED) Patient Name: INDIRA WILLARD Unit No: [id number] EXAMS: CPT CODE: [id number] USG NDL PLACEMENT (Bxg/Asp) 52373 <Continued> CC: Jadiel Ahmadi MD Technologist: HOWIE PINEDA RDMS, RVT Transcribed D/ (1331) tEITAN.[facility] NAME: INDIRA WILLARD [address] [place] [address] PHYS: MATJadiel Purdy : 1955 AGE: 64 SEX: F [place], [place] [address] LOC: Y.RAD PHONE #: [phone] EXAM DATE: 09/11/2020 STATUS: REG CLI FAX #: [phone] #: D/C DT PAGE 2 Signed Report Patient Name: INDIRA WILLARD Unit No: [id number] EXAMS: CPT CODE: [id number] USG NDL PLACEMENT (Bxg/Asp) 92681 <Continued> Orig Print D/T: S: 09/11/2020 (1335) [facility] NAME: INDIRA WILLARD [address] [facility] PHYS: MATVA.01 - Justo Ahmadi : 1955 AGE: 64 SEX: F [place] [address] LOC: Y.RAD PHONE #: [phone] EXAM DATE: 09/11/2020 STATUS: REG CLI FAX #: [phone] RAD #: D/C DT PAGE 3 Signed Report
[2021-07-09] MEDS ORDERED: TETANUS & DIPHTHERIA TOX,ADULT 0.5 ML VIAL ONE (16:46)
[2021-07-09] MEDS ORDERED: LIDOCAINE 1% MPF 5 ML VIAL ONE (16:46)
[2021-07-09] MEDS ORDERED: ALPRAZOLAM 0.25 MG TABLET ONE (16:57)
--- NOTE | 2021-07-09 17:40 | EDPHYS ---
Physician Documentation [facility] Name: Alessandra Suarez Age: 65 yrs Sex: Female : 1955 Arrival Date: 07/09/2021 Time: 16:02 Bed 10 Private MD: ED Physician Kj Wilson HPI: 07/09 17:15 This 65 yrs old Female presents to ER via Ambulatory with complaints of Laceration To kb Hand. 17:15 The patient has a laceration related to: falling occurred at home, and there are no kb complicating factors. The injury was accidental. The laceration(s) is(are) located on the right hand. Onset: The symptoms/episode began/occurred just prior to arrival. Associated signs and symptoms: The patient has no apparent associated signs or symptoms. The patient has not experienced similar symptoms in the past. The patient has been recently seen by a physician: the patient's primary care provider, earlier today, with similar presenting complaints, and was sent to the [facility] Emergency Department for further evaluation. Pt reports she tripped at home and cut her right hand. . Historical: - Allergies: 16:25 Codeine; ab2 16:25 Darvon; ab2 16:25 Phenergan; ab2 16:25 SHELLFISH; ab2 16:25 Stadol; ab2 16:25 Sulfa (Sulfonamide Antibiotics); ab2 16:25 Talwin; ab2 16:25 teramycin; ab2 16:25 Losartan; ab2 16:25 Demerol; ab2 - Home Meds: 16:25 alprazolam 0.25 mg Oral TbDL 1 tab as needed [Active]; metoprolol tartrate 50 mg Oral ab2 tab 1 tab 2 times per day [Active]; Clonazepam Oral [Active]; - PMHx: 16:25 Anxiety; Hypertension; ab2 - PSHx: 16:25 L Knee replacement; ab2 - Immunization history:: Adult Immunizations up to date, Client reports receiving the 2nd dose of the Covid vaccine. - Social history:: Smoking status: Patient denies any tobacco usage or history of. ROS: 17:15 Constitutional: Negative for fever, chills, and weight loss. kb 17:15 Skin: Positive for laceration(s), of the right hand. 17:15 All other systems are negative. Exam: 17:16 Constitutional: This is a well developed, well nourished patient who is awake, alert, kb and in no acute distress. Head/Face: Normocephalic, atraumatic. ENT: Moist Mucous membranes Respiratory: Respirations even and unlabored. No increased work of breathing. Talking in full sentences MS/ Extremity: Pulses equal, no cyanosis. Neurovascular intact. Full, normal range of motion. Neuro: Awake and alert, GCS 15, oriented to person, place, time, and situation. Moves all extremities. Normal gait. Psych: Awake, alert, with orientation to person, place and time. Behavior, mood, and affect are within normal limits. 17:16 Skin: injury, abrasion(s), very small abrasion noted, of the dorsal aspect of distal phalanx of right middle finger and palm of right hand, laceration(s), the wound is approximately 0.5 cm(s), of the dorsal aspect of middle phalanx of right little finger, the second wound is approximately 2 cm(s), of the outer aspect of right palm, that can be described as clean, no foreign body, linear, without bleeding. Vital Signs: 16:20 BP 149 / 85; Pulse 77; Resp 16; Temp 98.8; Pulse Ox 100% on R/A; Weight 121.56 kg; ab2 Height 5 ft. 10 in. (177.80 cm); Pain 5/10; 16:20 Body Mass Index 38.45 (121.56 kg, 177.80 cm) ab2 Laceration: 17:37 Wound Repair of 2cm ( 0.8in ) subcutaneous laceration to outer aspect of right palm. kb Linear shaped.. Distal neuro/vascular/tendon intact. Anesthesia: Wound infiltrated with 2 mls of 1% lidocaine. Wound prep: Extensive cleansing with hibiclenz by az, Wound irrigation with saline by az. Skin closed with 5 5-0 Prolene using simple sutures and sterile technique. Patient tolerated well. 17:37 Wound Repair of 0.5cm ( 0.2in ) subcutaneous laceration to dorsal aspect of middle kb phalanx of right little finger. Linear shaped.. Distal neuro/vascular/tendon intact. Anesthesia: Wound infiltrated with 0.5 mls of 1% lidocaine. Wound prep: Extensive cleansing with hibiclenz by me, Wound irrigation with saline by me. Skin closed with 2 5-0 Prolene using simple sutures and sterile technique. Patient tolerated well. MDM: 16:30 Patient medically screened. kb 17:16 Data reviewed: vital signs, nurses notes. Data interpreted: Pulse oximetry: on room air kb is 100 %. Interpretation: normal. Counseling: I had a detailed discussion with the patient and/or guardian regarding: the historical points, exam findings, and any diagnostic results supporting the discharge/admit diagnosis, the need for outpatient follow up, a family practitioner, to return to the emergency department if symptoms worsen or persist or if there are any questions or concerns that arise at home. 07/09 16:34 Order name: Dressing - Wound; Complete Time: 17:40 kb 07/09 16:34 Order name: Gloves, Sterile; Complete Time: 16:51 kb 07/09 16:34 Order name: Prolene, Sutures; Complete Time: 17:40 kb 07/09 16:34 Order name: Setup Suture Tray; Complete Time: 16:41 kb Administered Medications: 16:50 Drug: Tetanus-Diphtheria Toxoid Adult 0.5 ml {Nursing Resident: [employer]. Exp: ss 09/24/2022. Lot #: [id number]. } Route: IM; Site: right deltoid; 17:39 Follow up: Response: No adverse reaction ss 16:57 Drug: XANax (alprazolam) Tablet 0.25 mg Route: PO; ss 17:39 Follow up: Response: No adverse reaction; Marked relief of symptoms ss 17:32 Drug: Lidocaine (1 %) 1 vials {Note: Administered by MERCEDES Kam.} Volume: 5 ml; Route: ss Infiltration; Disposition Summary: 07/09/21 17:39 Discharge Ordered Location: Home kb Condition: Stable kb Diagnosis - Laceration without foreign body of right little finger without damage to nail, kb initial encounter - Laceration without foreign body of right hand kb Followup: kb - With: Emergency Department - When: As needed - Reason: Worsening of condition Followup: kb - With: Private Physician - When: 2 - 3 days - Reason: Recheck today's complaints, Continuance of care, Re-evaluation by your physician Discharge Instructions: - Discharge Summary Sheet kb - Laceration Care, Adult, [id number] kb Forms: - Medication Reconciliation Form kb - Thank You Letter kb - Antibiotic Education kb - Prescription Opioid Use kb Signatures: Negin Sawant FNP-C PACKAGING DESIGN ENGINEER-Anabell Sapp, RN RN Solomon Crawley
--- NOTE | 2021-07-09 17:40 | ER ---
Nurse's Notes [facility] Name: Alessandra Suarez Age: 65 yrs Sex: Female : 1955 Arrival Date: 07/09/2021 Time: 16:02 Bed 10 Private MD: Diagnosis: Laceration without foreign body of right little finger without damage to nail, initial encounter;Laceration without foreign body of right hand Presentation: 07/09 16:20 Chief complaint: Patient states: "I was at home and tripped over my grocery wagon and I ab2 fell onto my left knee, which I just had a knee replacement done in, and I also cut my right hand open, its pretty deep." Pt denies hitting head or LOC. Pt denies any use of blood thinners. Coronavirus screen: Vaccine status: Patient reports receiving the 2nd dose of the covid vaccine. Client denies travel out of the [place] in the last 14 days. At this time, the client does not indicate any symptoms associated with coronavirus-19. Ebola Screen: Patient negative for fever greater than or equal to 101.5 degrees Fahrenheit, and additional compatible Ebola Virus Disease symptoms Patient denies exposure to infectious person. Patient denies travel to an Ebola-affected area in the 21 days before illness onset. No symptoms or risks identified at this time. Complicating Factors: The patient fell landing on an outstretched hand. Initial Sepsis Screen: Does the patient meet any 2 criteria? No. Patient's initial sepsis screen is negative. Does the patient have a suspected source of infection? No. Patient's initial sepsis screen is negative. Risk Assessment: Do you want to hurt yourself or someone else? Patient reports no desire to harm self or others. Onset of symptoms is unknown. 16:20 Method Of Arrival: Ambulatory ab2 16:20 Acuity: KRISTA 4 ab2 Triage Assessment: 16:27 General: Appears in no apparent distress. comfortable, Behavior is calm, cooperative, ab2 appropriate for age. Pain: Complains of pain in palmar aspect of proxima; phalanx of right index finger and Right first web space. Derm: Wound noted palmar aspect of proxima; phalanx of right index finger and Right first web space. Musculoskeletal: Reports pain in right hand and left knee. Injury Description: Laceration sustained to palmar aspect of proxima; phalanx of right index finger and Right first web space. Historical: - Allergies: 16:25 Codeine; ab2 16:25 Darvon; ab2 16:25 Phenergan; ab2 16:25 SHELLFISH; ab2 16:25 Stadol; ab2 16:25 Sulfa (Sulfonamide Antibiotics); ab2 16:25 Talwin; ab2 16:25 teramycin; ab2 16:25 Losartan; ab2 16:25 Demerol; ab2 - Home Meds: 16:25 alprazolam 0.25 mg Oral TbDL 1 tab as needed [Active]; metoprolol tartrate 50 mg Oral ab2 tab 1 tab 2 times per day [Active]; Clonazepam Oral [Active]; - PMHx: 16:25 Anxiety; Hypertension; ab2 - PSHx: 16:25 L Knee replacement; ab2 - Immunization history:: Adult Immunizations up to date, Client reports receiving the 2nd dose of the Covid vaccine. - Social history:: Smoking status: Patient denies any tobacco usage or history of. Screenin:44 Abuse screen: Denies threats or abuse. Denies injuries from another. Nutritional ab2 screening: No deficits noted. Tuberculosis screening: No symptoms or risk factors identified. Fall Risk None identified. Assessment: 16:43 General: Appears in no apparent distress. uncomfortable, Behavior is calm, cooperative, ab2 appropriate for age. Pain: Complains of pain in left leg and left knee and right hand and Right first web space and palmar aspect of proxima; phalanx of right index finger. Neuro: Level of Consciousness is awake, alert, obeys commands, Oriented to person, place, time, situation, Appropriate for age Optical Advisor are equal bilaterally Moves all extremities. Gait is steady, Speech is normal, Facial symmetry appears normal. Cardiovascular: No deficits noted. Denies chest pain, shortness of breath, Heart tones S1 S2 present Patient's skin is warm and dry. Chest pain is denied. Respiratory: No deficits noted. Airway is patent Respiratory effort is even, unlabored, Respiratory pattern is regular, symmetrical, Breath sounds are clear bilaterally. Denies cough, shortness of breath. GI: No deficits noted. No signs and/or symptoms were reported involving the gastrointestinal system. Abdomen is round non-distended. : No deficits noted. No signs and/or symptoms were reported regarding the genitourinary system. EENT: No deficits noted. No signs and/or symptoms were reported regarding the EENT system. Derm: Wound noted Right first web space and palmar aspect of proxima; phalanx of right index finger. Musculoskeletal: No deficits noted. No signs and/or symptoms reported regarding the musculoskeletal system. Reports pain in left knee and Right first web space and palmar aspect of proxima; phalanx of right index finger. Injury Description: Laceration sustained to Right first web space and palmar aspect of proxima; phalanx of right index finger is jagged, bleeding moderately. 18:09 Reassessment: wound care performed. dressing placed. ss Vital Signs: 16:20 BP 149 / 85; Pulse 77; Resp 16; Temp 98.8; Pulse Ox 100% on R/A; Weight 121.56 kg; ab2 Height 5 ft. 10 in. (177.80 cm); Pain 5/10; 16:20 Body Mass Index 38.45 (121.56 kg, 177.80 cm) ab2 ED Course: 16:02 Patient arrived in ED. ds1 16:25 Triage completed. ab2 16:28 Arm band placed on left wrist. ab2 16:30 Negin Sawant FNP-C [facility]. kb 16:30 Kj Wilson MD is Attending Physician. kb 16:44 Patient has correct armband on for positive identification. Bed in low position. Call ab2 light in reach. Side rails up X2. Adult w/ patient. 16:44 No provider procedures requiring assistance completed. ab2 17:39 Anabell Babin, SIMONE is Primary Nurse. ss 18:12 Patient did not have IV access during this emergency room visit. Dressings: Band aid. ss Administered Medications: 16:50 Drug: Tetanus-Diphtheria Toxoid Adult 0.5 ml {Ship Surveyor: [employer]. Exp: ss 09/24/2022. Lot #: [id number]. } Route: IM; Site: right deltoid; 17:39 Follow up: Response: No adverse reaction ss 16:57 Drug: XANax (alprazolam) Tablet 0.25 mg Route: PO; ss 17:39 Follow up: Response: No adverse reaction; Marked relief of symptoms ss 17:32 Drug: Lidocaine (1 %) 1 vials {Note: Administered by NP. Negin} Volume: 5 ml; Route: ss Infiltration; Outcome: 17:39 Discharge ordered by . mariella 18:12 Discharged to home ambulatory. ss 18:12 Condition: good 18:12 Discharge instructions given to patient, friend, Instructed on discharge instructions, follow up and referral plans. Demonstrated understanding of instructions, follow-up care. 18:18 Patient left the ED. ss Signatures: Negin Sawant, RESTAURANT CREW-C RESTAURANT CREW-Esme Rodrigues ds1 Anabell Babin, SIMONE RN Solomon Monet ab2
[2021-07-09 18:59] VITALS: BP 149/85; TEMP 98.8; O2SAT 100
== END 2021-07-09 18:18 | disposition home or self-care (01) ==
LOC: ER 15:58
PROC: 0JQJ0ZZ Repair Right Hand Subcutaneous Tissue and Fascia, Open Approach (ICD-10-PCS; principal; 2021-07-09)
DX: S61.411A Laceration without foreign body of right hand, initial encounter (principal); S61.216A Laceration without foreign body of right little finger without damage to nail, initial encounter; W01.0XXA Fall on same level from slipping, tripping and stumbling without subsequent striking against object, initial encounter; Y92.009 Unspecified place in unspecified non-institutional (private) residence as the place of occurrence of the external cause; Z23 Encounter for immunization; Z88.2 Allergy status to sulfonamides; Z88.3 Allergy status to other anti-infective agents; Z88.5 Allergy status to narcotic agent; Z88.8 Allergy status to other drugs, medicaments and biological substances; Z91.013 Allergy to seafood; F41.9 Anxiety disorder, unspecified; I10 Essential (primary) hypertension
CPT/HCPCS: 90471; 90714; 99283

== ENCOUNTER 2023-05-22 12:27 | Observation (INO) | payer OTHER ==
--- OUTSIDE RECORDS SUMMARY | 2023-05-22 12:29 | XMS REPORT | Continuity of Care Document ---
Author Name Unknown Address [address] [facility] [address] [place], [place] [id number] [place] [address] [facility] Address [address] [facility] [address] [place] [address] Care Team Providers Care Bureau Chief Name Role Phone Jadiel Ahmadi Attending Clinician Unavailabl e Jadiel Ahmadi Admitting Clinician Unavailabl e UNDEFINED Admitting Clinician Unavailable Payers Payer Name Policy Type Policy Number Effective Date Expirati on Date Source Allergies, Adverse Reactions, Alerts Allergy Name Allergy Type Status Severity Reaction(s) Onset Date Inactive Date Treating Clinician Comments Source prometha zine DA Active MO 09-11 00:00: 00 [facility] meperidi ne DA Active SV 09-11 00:00: 00 [facility] butorpha nol DA Active SV 09-11 00:00: 00 [facility] bee venom protein (honey bee) DA Active SV 09-11 00:00: 00 [facility] shellfis h derived FA Active SV 09-11 00:00: 00 [facility] Sulfa (Sulfona mide Antibiot ics) DA Active MO VOMITING 09-11 00:00: 00 [facility] peanut FA Active SV ITCHY THROAR/WHEEZ ING 09-11 00:00: 00 [facility] codeine DA Active SV HEADACHE 09-11 00:00: 00 [facility] propoxyp hene DA Active MO VOMITING 09-11 00:00: 00 [facility] pentazoc ine DA Active MO VOMITING 09-11 00:00: 00 [facility] epinephr ine DA Active MO HEART RACING 09-11 00:00: 00 [facility] oxytetra cycline DA Active MO VOMITING 09-11 00:00: 00 [facility] prometha zine DA Active MO VOMITING/HEA DACHE 09-11 00:00: 00 [facility] meperidi ne DA Active SV BEHAVIOR CHANGE 09-11 00:00: 00 [facility] butorpha nol DA Active SV AFFECTS BREATHING 09-11 00:00: 00 [facility] bee venom protein (honey bee) DA Active SV EXTREME SWELLING 09-11 00:00: 00 [facility] shellfis h derived FA Active SV THROAT ITCHING/WHEE ZING 09-11 00:00: 00 [facility] Sulfa (Sulfona mide Antibiot ics) DA Active MO 09-11 00:00: 00 [facility] peanut FA Active SV 09-11 00:00: 00 [facility] codeine DA Active SV 09-11 00:00: 00 [facility] propoxyp hene DA Active 09-11 00:00: 00 [facility] pentazoc ine DA Active MO 09-11 00:00: 00 [facility] epinephr ine DA Active MO 09-11 00:00: 00 [facility] oxytetra cycline DA Active MO 09-11 00:00: 00 [facility] Procedures Procedure Date / Time Performed Performing Clinicia n Source [id number] 2020-09-18 00:00:00 MATVA.[email or web address] [facility] Encounters Start Date/Time End Date/Time Encounter Type Admission Type Attending Clinicians Care Facility Care Department Encounter ID Source 2020-09-21 15:46:46 Inpatient JUAN AhmadiDale salasilios [facility] [id number] [facility] 2020-09-18 17:15:00 Inpatient JUAN AhmadiDale salasilios [facility] ADMI [id number] [facility] 2020-09-11 18:40:35 2020-09-11 18:40:35 Outpatient AhmadiDale salasilios [facility] [id number] [facility] 2020-09-11 13:46:25 2020-09-11 13:46:25 Outpatient AhmadiDale salasilios [facility] [id number] [facility] Results Test Description Test Time Test Comments Results Result Co mments Source BASIC METABOLIC [id number] 06:08:00* Test Item Value Reference Range Interpretation Comme nts SODIUM (test code = NA) 142 mmol/L 136-145 N POTASSIUM (test code = K) 3.8 mmol/L 3.5-5.1 N CHLORIDE (test code = CL) 105.0 mmol/L 98-107 N CARBON DIOXIDE (test code = CO2) 27.3 mmol/L 21-32 N GLUCOSE (test code = GLU) 99 mg/dL 70-110 N BLOOD UREA NITROGEN (test code = BUN) 11 mg/dL 7-18 N GLOMERULAR FILTRATION RATE (test code = GFR) 102.0 >60 Unit of m easure: mL/min/1.73 x6Bcpfppvus Range:Healthy Adults >90 mL/min/1.73 m2 For Chronic Kidney Disease: Stage II Mild Decrease in GFR 60-90 Stage III Moderate Decrease in GFR 30-59 Stage IV Severe Decrease in GFR 15-29 Stage V Kidney Failure <15 CREATININE (test code = CREAT) 0.59 mg/dL 0.55-1.30 N CALCIUM (test code = CA) 8.1 mg/dL 8.2-10.1 L COMPREHENSIVE METABOLIC [id number] 19:51:00* Test Item Value Reference Range Interpretation Comme nts SODIUM (test code = NA) 142 mmol/L 136-145 N POTASSIUM (test code = K) 3.5 mmol/L 3.5-5.1 N CHLORIDE (test code = CL) 104.0 mmol/L 98-107 N CARBON DIOXIDE (test code = CO2) 27.0 mmol/L 21-32 N GLUCOSE (test code = GLU) 107 mg/dL 70-110 N BLOOD UREA NITROGEN (test code = BUN) 12 mg/dL 7-18 N GLOMERULAR FILTRATION RATE (test code = GFR) 88.1 >60 Unit of m easure: mL/min/1.73 r0Jbijnnmbj Range:Healthy Adults >90 mL/min/1.73 m2 For Chronic Kidney Disease: Stage II Mild Decrease in GFR 60-90 Stage III Moderate Decrease in GFR 30-59 Stage IV Severe Decrease in GFR 15-29 Stage V Kidney Failure <15 CREATININE (test code = CREAT) 0.67 mg/dL 0.55-1.30 N TOTAL PROTEIN (test code = PROT) 6.1 g/dL 6.4-8.2 L ALBUMIN (test code = ALB) 3.2 g/dL 3.4-5.0 L GLOBULIN (test code = GLOB) 2.9 g/dL 2.2-4.2 N ALBUMIN/GLOBULIN RATIO (test code = A/G) 1.1 0.7-2.0 N CALCIUM (test code = CA) 7.9 mg/dL 8.2-10.1 L BILIRUBIN TOTAL (test code = BILT) 0.60 mg/dL 0.2-1.00 N SGOT/AST (test code = AST) 15.0 U/L 15-37 N SGPT/ALT (test code = ALT) 16.0 U/L 12-78 N Please note new normal range. ALKALINE PHOSPHATASE TOTAL (test code = ALKP) 70 U/L 46-116 N [id number] 19:51:00* Test Item Value Reference Range Interpretation Comme nts MAGNESIUM (test code = MAG) 2.4 mg/dL 1.8-2.4 N CBC W/AUTO [id number] 18:58:00* Test Item Value Reference Range Interpretation Comme nts WHITE BLOOD CELL (test code = WBC) [...] 27-34 N MEAN CELL HGB CONCENTRATION (test code = MCHC) 33.0 g/dL 30.8-34.1 N RED CELL DISTRIBUTION WIDTH (test code = RDW) 14.0 % 11-16 N PLT (test code = PLT) 252 K/mm3 130-400 N MEAN PLATELET VOLUME (test c ode = MPV) 10.2 fL 8.9-12.1 N NEUTROPHIL % (test code = NT%) 65.9 [...] K/mm3 0.02-0.10 N MANUAL DIFF REQUIRED (test c ode = MDIFF) NO MANUAL DIFF NUCLEATED RED BLOOD CELL (te st code = NRBC) 0 % 0-0 N - XR ABDOMEN 1 [id number] 16:13:00 [facility] 1955 Sex: F Patient Name: INDIRA SUAREZ Unit No: [id number] EXAMS: CPT CODE: [id number] XR ABDOMEN 1 V 16367 IMAGES PROVIDED: 1 FINDINGS: Mild gaseous distention of the bowel is demonstrated which could represent an adynamicileus. No evidence of small bowel obstruction. Cholecystectomy clips are present. No acute osseous abnormality. Multilevel lumbar spondylosis is visualized. IMPRESSION: Findings suggestive of adynamic ileus. at 1613 Reported and signed by: Raheel Kwon M.D. CC: Jadiel Ahmadi MD; Racheal White NP Technologist: Roman Amezquita(R) Transcribed D/ (1613) [facility]: INDIRA SUAREZ [address] PHYS: MATVA.01 - Jadiel Ahmadi : 1955 AGE: 64 SEX: F [place] LOC: Y.523 A PHONE #: [phone] EXAM DATE: 09/21/2020 STATUS: ADM INFAX #: [phone] RAD #: D/C DT PAGE 1 Signed Report Patient Name: INDIRA SUAREZ Unit No: [id number] EXAMS: CPT CODE: [id number] XR ABDOMEN 1 V 14755 (Continued) Orig Print D/T: S: 09/21/2020 (1616) [facility] NAME: INDIRA SUAREZ [address] [facility] PHYS: 01 - Jadiel Ahmadi : 1955 AGE: 64 SEX: F [place], [place] [address] LOC: Y.523 A PHONE #: [phone] EXAM DATE: 09/21/2020 STATUS: ADM IN FAX #: [phone] RAD #: D/C DT PAGE 2 Signed ReportHGB [id number] 05:57:00* Test Item Value Reference Range Interpretation Comme nts HEMOGLOBIN (test code = HGB) 9.7 g/dL 12-16 L HEMATOCRIT (test code = HCT) 29.1 % 37-47 L SPECIMEN COMMENT: POD #1Novel Coronavirus 2019 [id number] 13:07:00* Test Item Value Reference Range Interpretation Comme nts Novel Coronavirus 2019 Inhouse (test code = COVNONPUI) Negative Negative Positive resul ts are indicative of the presence lwISWH-ClL-1 RNA, clinical correlation with patient historyand other diagnostic information is necessary to determinepatient infection status. Positive results do not rule outbacterial infection or co-infection with other viruses. Negative results do not preclude SARS-CoV-2 infection andshould not be used as the sole basis for patient managementdecisions. Negative results must be combined with otherclinical observations, patient history, and epidemiologicalinformation . Detection of SARS-CoV-2 RNA may be affected bysample collection methods, storage conditions, and/or stageof infection. Viral RNA mutations, vaccinations, antiviraltherapeutics, antibiotics, chemotherapeutic orimmunosuppressant drugs have not been evaluated for effectson detection. Results are for the identification of SARS-CoV-2 RNA usingthe Affaredelgiorno000 System under the FDA Emergency UseAuthorization. The testing is performed by personneltrained in the procedures for the Affaredelgiorno000 moleculardiagnostic SARS-CoV-2 assay in vitro. Novel Coronavirus 2019 [id number] 13:06:00* Test Item Value Reference Range Interpretation Comme nts Novel Coronavirus 2019 Inhouse (test code = COVNONPUI) Negative Negative Positive resul ts are indicative of the presence jfNFGJ-OxM-6 RNA, clinical correlation with patient historyand other diagnostic information is necessary to determinepatient infection status. Positive results do not rule outbacterial infection or co-infection with other viruses. Negative results do not preclude SARS-CoV-2 infection andshould not be used as the sole basis for patient managementdecisions. Negative results must be combined with otherclinical observations, patient history, and epidemiologicalinformation . Detection of SARS-CoV-2 RNA may be affected bysample collection methods, storage conditions, and/or stageof infection. Viral RNA mutations, vaccinations, antiviraltherapeutics, antibiotics, chemotherapeutic orimmunosuppressant drugs have not been evaluated for effectson detection. Results are for the identification of SARS-CoV-2 RNA usingthe Hang w/ M2000 System under the FDA Emergency UseAuthorization. The testing is performed by personneltrained in the procedures for the Hill M2000 moleculardiagnostic SARS-CoV-2 assay in vitro. AB HIV [id number] 22:30:00* Test Item Value Reference Range Interpretation Comme nts AB HIV 1 (test code = HIV1AB) NONREACTIVE NONREACTIVE DONE AT: [address] [id number] by [employer] 4[employer] HIV Ag/Ab Combo Screen AB HIV 1 22:29:00* Test Item Value Reference Range Interpretation Comme nts AB HIV 1 2 (test code = [id number]) NONREACTIVE NONREACTIVE Done by [employer] 4[employer] HIV Ag/Ab Combo Screen COMPREHENSIVE METABOLIC [id number] 16:05:00* Test Item Value Reference Range Interpretation Comme nts SODIUM (test code = NA) 142 mmol/L 136-145 N POTASSIUM (test code = K) 4.0 mmol/L 3.5-5.1 N CHLORIDE (test code = CL) 104.0 mmol/L 98-107 N CARBON DIOXIDE (test code = CO2) 28.6 mmol/L 21-32 N GLUCOSE (test code = GLU) 90 mg/dL 70-110 N BLOOD UREA NITROGEN (test code = BUN) 16 mg/dL 7-18 N GLOMERULAR FILTRATION RATE (test code = GFR) 92.8 >60 Unit of m easure: mL/min/1.73 m1Tolkmloci Range:Healthy Adults >90 mL/min/1.73 m2 For Chronic Kidney Disease: Stage II Mild Decrease in GFR 60-90 Stage III Moderate Decrease in GFR 30-59 Stage IV Severe Decrease in GFR 15-29 Stage V Kidney Failure <15 CREATININE (test code = CREAT) 0.64 mg/dL 0.55-1.30 N TOTAL PROTEIN (test code = PROT) 7.1 g/dL 6.4-8.2 N ALBUMIN (test code = ALB) 4.1 g/dL 3.4-5.0 N GLOBULIN (test code = GLOB) 3.0 g/dL 2.2-4.2 N ALBUMIN/GLOBULIN RATIO (test code = A/G) 1.4 0.7-2.0 N CALCIUM (test code = CA) 8.9 mg/dL 8.2-10.1 N BILIRUBIN TOTAL (test code = BILT) 0.40 mg/dL 0.2-1.00 N SGOT/AST (test code = AST) 16.0 U/L 15-37 N SGPT/ALT (test code = ALT) 32.0 U/L 12-78 N Please note new normal range. ALKALINE PHOSPHATASE TOTAL (test code = ALKP) 78 U/L 46-116 N PROTHROMBIN [id number] 16:05:00* Test Item Value Reference Range Interpretation Comme nts PROTHROMBIN TIME PATIENT (test code = PTP) 12.2 secs 10.1-12.5 N INTERNATIONAL NORMAL RATIO (test code = INR) 1.07 <2.0 RECOMMENDED THER APEUTIC RANGE FOR ORAL ANTICOAGULANTTREATMENT: CONDITION INRProphylaxis of venous thrombosis in 2.0 - 3.0 high-risk medical or surgical patientsTreatment of venous thrombosis 2.0 - 3.0Prevention of embolism 2.0 - 3.0Prevention of recurrent embolism, or 3.0 - 4.5 patients with mechanical prosthetic intravascular valves IS PATIENT ON ANTICOAGULANTS ? [facility] been notified if Patient is on Heparin Drip? NOTHROMBOPLASTIN TIME [id number] 16:05:00* Test Item Value Reference Range Interpretation Comme nts PTT ACTIVATED (test code = APTT) 36.6 secs 24.9-37.0 N IS PATIENT ON ANTICOAGULANTS ? [facility] been notified if Patient is on Heparin Drip? NOCBC W/AUTO [id number] 15:49:00* Test Item Value Reference Range Interpretation Comme nts WHITE BLOOD CELL (test code = WBC) [...] 27-34 N MEAN CELL HGB CONCENTRATION (test code = MCHC) 32.7 g/dL 30.8-34.1 N RED CELL DISTRIBUTION WIDTH (test code = RDW) 14.2 % 11-16 N PLT (test code = PLT) 280 K/mm3 130-400 N MEAN PLATELET VOLUME (test c ode = MPV) 10.7 fL 8.9-12.1 N NEUTROPHIL % (test code = NT%) 55.6 [...] K/mm3 0.02-0.10 N MANUAL DIFF REQUIRED (test c ode = MDIFF) NO MANUAL DIFF NUCLEATED RED BLOOD CELL (te st code = NRBC) 0 % 0-0 N - USG NDL PLACEMENT (Bxg/Asp)2020-09-11 13:31:00 [facility] 1955 Sex: F Patient Name: INDIRA SUAREZ Unit No: [id number] EXAMS: CPT CODE: [id number] USG NDL PLACEMENT (Bxg/Asp) 49074 INDICATION: Left knee pain. PROCEDURE: Ultrasound guided cryoneurolysis (Iovera) of the left anterior femoral cutaneous nerve, medial femoral cutaneous nerve, and the superior and inferior branches of the infrapatellar branch of the saphenous nerve. ENGINEERING SUPERVISOR: Dr. Kwon. MEDICATIONS: 1 % Lidocaine local anesthesia CONTRAST: None. COMPLICATION: None immediately evident. DESCRIPTION: After the procedure, including indication and potential complications had been discussed with the patient and questions answered, written informed consent was obtained. The patient was then taken to the ultrasound suite [...] the nerves had been identified by ultrasound, and the treatment was initiated. The duration of each [...] pain level: 3/ 10 Postprocedural pain level: 3/ 10 IMPRESSION: Cryoneurolysis of the left anterior femoral cutaneous nerve, medial femoral cutaneous nerve, and the superior and inferior branches of the infrapatellar branch of the saphenous nerve as above. at 1331 Reported and signed by: Raheel Kwon M.D. [facility] NAME: INDIRA SUAREZ Jud [facility] PHYS: LAZARA.Jud - AhmadiVonda salasos Yobany : 1955 AGE: 64 SEX: F [place] [address] LOC: Y.RAD PHONE #: [phone] EXAM DATE: 09/11/2020 STATUS: REG CLI FAX #: [phone] RAD #: D/C DT PAGE 1 Signed Report (CONTINUED) Patient Name: INDIRA SUAREZ Unit No: [id number] EXAMS: CPT CODE: [id number] USG NDL PLACEMENT (Bxg/Asp) 68671 (Continued) CC: Jadiel Ahmadi MD Technologist: HOWIE PINEDA RDMS, RVT Transcribed D/ (133) [facility] NAME: INDIRA SUAREZ Jud [facility] PHYS: LAZARA.Jud - Yobany fabJadiel Yobany : 1955 AGE: 64 SEX: F [place] [address] LOC: Y.RAD PHONE #: [phone] EXAM DATE: 09/11/2020 STATUS: REG CLI FAX #: [phone] RAD #: D/C DT PAGE 2 Signed Report Patient Name: INDIRA SUAREZ Unit No: [id number] EXAMS: CPT CODE: [id number] USG NDLPLACEMENT (Bxg/Asp) 74071 (Continued) Orig Print D/T: S: 09/11/2020 (1335) [facility] NAME: PATTY SUAREZ[address] PHYS: LAZARA.Jud - AhmadiJadiel : 1955 AGE: 64 SEX:F [place], [place] [address] LOC: JOSHUA PHONE #: [phone] EXAM DATE: 09/11/2020TATUS: LETY GALLARDO FAX #: [phone] RAD #: D/C DT PAGE 3 Signed Report Notes Date/Time Note Provider Source 2020-09-29 17:38:00 BYdswqidcwi55064757h YhDQ02+t80+Igs/eJbekFzNurBWa5 5C+SvBG2Z9jlDgF/OxStwNFogXD/MVFx/W6281-21-31C31:3 8:586531-1616 [facility] [place] [address] PATIENT NAME: INDIRA SUAREZ ADMIT DATE: 09/18/20ACCOUNT NO: [id number] ROOM NO: Y.523 AGE: 64 REPORT TYPE: DISCHARGE SUMMARY REPORT SEX: F ADMITTING PHYSICIAN:Jadiel Ahmadi MD ATTENDING PHYSICIAN:Jadiel Ahmadi MD ADMISSION DATE: 09/18/2020ISCHARGE DATE: 09/22/2020 CHIEF COMPLAINT ON ADMISSION: Left knee pain. ADMISSION DIAGNOSES: Left knee end stage degenerative joint disease andobesity. DISCHARGE DIAGNOSES: Left knee end stage degenerative joint disease andobesity. PROCEDURE: Complex left total knee arthroplasty. HOSPITAL COURSE: The patient underwent the procedure without incident. Thepatient was hemodynamically and medically monitored during the postoperativeperiod. The patient was anticoagulated with institution of postoperative DVTprophylaxis. The patient was progressively able to tolerate p.o. painmedications and a regular diet. Physical therapy was instituted, with aprogressive ability to ambulate and perform exercises. DISCHARGE PHYSICAL EXAMINATION:HEAD, EYES, EARS, NOSE, AND THROAT: Within normal limits.NECK: No adenopathy/Jugular venous distention.LUNGS: Clear to auscultation.CARDIOVASCULAR: No rate changes, no new murmur.ABDOMEN: Soft, NT/ND, normal bowel sounds.EXTREMITIES: Wound clean, dry, intact; calves soft and nontender. NegativeHoman's sign bilaterally.NEUROLOGIC AND VASCULAR: Within normal limits and without change. DISCHARGE STATUS: Stable. DISCHARGE PLAN:1. Disposition: Discharged to home /rehab center.2. Wound: Continue dressing changes until dry. Instructions given to thepatient.3. Pain Medications: As per discharge prescription, with progressive weaningas pain decreases.4. Physical Therapy: Will undergo PT as necessary for gait training,mobilization, poxei-ay-duehgc, and strengthening.5. Weightbearing: As per physical therapy instructions in hospital.6. Anticoagulation: As per discharge prescription. PATIENT NAME: INDIRA SUAREZ 7. Followup Appointment: Will follow up with Dr. Ahmadi in 2 weeks. Dictated By: Jadiel Ahmadi MD WT: DS:MARY/LAZARA./NTSDD: 09/29/2020 17:38:57DT: 09/30/2020 00:11:16Conf#: [id number]/DID#: [id number] Authenticated by Jadiel Ahmadi MD On 10/02/2020 05:00:16 PM at 1700 PATIENT NAME: INDIRA SUAREZ actgddg0583-16-81H42:11:00Y.DNB75362479-1815LTApk ilable for patient aoogZVOJAXZNNZTPVL2867-46-64V67:00:48 [facility] 2020-09-22 09:28:00 QEqjtzhtojt03145931W FaMx76SmPdNLn2pB9NswFlUgwbm/k lkInvRurRJQO/VzNj6VOtRqN+n8H2EUEmD0639-11-85G88:2 8:00 [facility] ([facility])Clinical NoteREPORT#:[id number] REPORT STATUS: SignedDATE:09/22/20 TIME: 927 PATIENT: INDIRA USAREZ UNIT #: [id number]#: [id number] ROOM/BED: [facility]-ADOB: [birth year] AGE: 64 SEX: F ATTEND: Jadiel Ahmadi MDADM AUTHOR: Eloy Hartmann MD * ALL edits or amendments must be made on the electronic/computer document * Clinical NoteNote:[facility] Eloy Huffman M.D. (cell text [phone]) Assessment/Plan1.) Anemia of acute blood loss- .asymptomatic.2.) S/p Left TKA- .acute multi-modal pain control and followup. Anticoagulationas per Dr. Ahmadi.3.) Ileus Spasms- .resolving, multiple BMs overnight. Potassium borderline low, will give some po KCL.4.) OsteoArthritis FLAVIO- .continue on Rx. CPAP5.) Hypertension- .follow BP and hold Rxs if SBP<120.* OK for DISCHARGE per Internal Medicine. Prior Events/Overnight: Brief sudden episode of muscloskeletal chest pain last PM.Chief Complaint: No significant complaints. ObjectiveVital SignsDate Temp Pulse Resp B/P B/P Mean Pulse Ox QsP640/20-09/22 98.4-99.0 73-93 14-16 122-158/74-92 89.8-112.7 96-100 Gen: Alert, oriented, in mild discomfort Neck: No Masses, No Thyromegaly-CV: Regular Rate Rhythm / Edema- no significant Resp: Clear To Ascultation / Normal Respiratory EffortABD: NonTender / NonDistended MS/Skin: No sign of compartment syndrome / +ankle DF/PF / nl capillary refill of toesOther: overall feeling much better Labs/X-ray: Laboratory Tests: 09/22 09/21 0509 1820 Chemistry Sodium (136 - 145 mmol/L) 142 142 Potassium (3.5 - 5.1 mmol/L) 3.8 3.5 Chloride (98 - 107 mmol/L) 105.0 104.0 Carbon Dioxide (21 - 32 mmol/L) 27.3 27.0 BUN (7 - 18 mg/dL) 11 12 Creatinine (0.55 - 1.30 mg/dL) 0.59 0.67 Glomerular Filtr Rate (>60) 102.0 88.1 Glucose (70 - 110 mg/dL) 99 107 Calcium (8.2 - 10.1 mg/dL) 8.1 L 7.9 L Magnesium (1.8 - 2.4 mg/dL) 2.4 Total Bilirubin (0.2 - 1.00 mg/dL) 0.60 AST (15 - 37 U/L) 15.0 ALT (12 - 78 U/L) 16.0 Total Alk Phosphatase (46 - 116 U/L) 70 Total Protein (6.4 - 8.2 g/dL) 6.1 L Albumin (3.4 - 5.0 g/dL) 3.2 L Globulin (2.2 - 4.2 g/dL) 2.9 Albumin/Globulin Ratio (0.7 - 2.0) 1.1 Hematology WBC (5.8 - 11.0 K/mm3) 6.2 RBC (4.2 - 5.4 M/mm3) 3.09 L Hgb (12 - 16 g/dL) 8.9 L Hct (37 - 47 %) 27.0 L MCV (80 - 98 fL) 87 MCH (27 - 34 pg) 28.8 MCHC (30.8 - 34.1 g/dL) 33.0 RDW (11 - 16 %) 14.0 Plt Count (130 - 400 K/mm3) 252 MPV (8.9 - 12.1 fL) 10.2 Neut % (Auto) (45 - 70 %) 65.9 Lymph % (Auto) (20 - 40 %) 21.4 Powell % (Auto) (3 - 10 %) 9.9 Eos % (Auto) (1 - 5 %) 2.1 Baso % (Auto) (0.0 - 1.1 %) 0.5 Neut # (Auto) (2.00 - 7.50 K/mm3) 4.07 Lymph # (Auto) (1.50 - 4.00 K/mm3) 1.32 L Powell # (Auto) (0.2 - 0.8 K/mm3) 0.61 Eos # (Auto) (0.04 - 0.4 K/mm3) 0.13 Baso # (Auto) (0.02 - 0.10 K/mm3) 0.03 Add Manual Diff (MANUAL DIFF) NO Nucleated RBC % (0 - 0 %) 0 Recent Impressions:RADIOLOGY - XR ABDOMEN 1 V 09/210 Report Impression - Status: SIGNED Entered: 09/21/20206 IMPRESSION:Findings suggestive of adynamic ileus.Impression By: Chelsey - Vanita Kellogg M.D. at 1044 [facility] #:[id number] OF REPORT CLClinical pkoy5830-41-32M89:28:00Y.YVHR52510665-1414GMCiprp able for patient eeybRRSLSFWQUKEGYF2858-20-06K03:45:04 [facility] 2020-09-21 20:28:00 TIfuynojkad13921453C tnBwirdJkY/or0LelQWufT1827wTU 7kvZA9XwA7Xk5YyxGoX3GaeNTYjRnXZ7p26365-55-07C31:2 8:00 [facility] ([facility])Orthopaedic Progress NoteREPORT#:[id number] REPORT STATUS: SignedDATE:09/21/20 TIME: 2027 PATIENT: INDIRA SUAREZ UNIT #: [id number]#: [id number] [facility]: [birth year] [facility]GE: 64 SEX: F ATTEND: Jadiel Ahmadi [facility] AUTHOR: Racheal White NP * ALL edits or amendments must be made on the electronic/computer document * Diagnosis, Assessment PlanFree text A P:C/O constipation. Pain mild-moderate. No Shortness of breath or chest symptoms. Afebrile VSSAlert, oriented, no acute distressWound clean and dry. No significant drainage.Neurologic and vascular systems intact distally.(-) Kishan s(-) Calf tendernessLaboratory Tests: 09/22 1819 Chemistry Sodium (136 - 145 mmol/L) 142 Potassium (3.5 - 5.1 mmol/L) 3.5 Chloride (98 - 107 mmol/L) 104.0 Carbon Dioxide (21 - 32 mmol/L) 27.0 BUN (7 - 18 mg/dL) 12 Creatinine (0.55 - 1.30 mg/dL) 0.67 Glomerular Filtr Rate (>60) 88.1 Glucose (70 - 110 mg/dL) 107 Calcium (8.2 - 10.1 mg/dL) 7.9 L Magnesium (1.8 - 2.4 mg/dL) 2.4 Total Bilirubin (0.2 - 1.00 mg/dL) 0.60 AST (15 - 37 U/L) 15.0 ALT (12 - 78 U/L) 16.0 Total Alk Phosphatase (46 - 116 U/L) 70 Total Protein (6.4 - 8.2 g/dL) 6.1 L Albumin (3.4 - 5.0 g/dL) 3.2 L Globulin (2.2 - 4.2 g/dL) 2.9 Albumin/Globulin Ratio (0.7 - 2.0) 1.1 Hematology WBC (5.8 - 11.0 K/mm3) 6.2 RBC (4.2 - 5.4 M/mm3) 3.09 L Hgb (12 - 16 g/dL) 8.9 L Hct (37 - 47 %) 27.0 L MCV (80 - 98 fL) 87 MCH (27 - 34 pg) 28.8 MCHC (30.8 - 34.1 g/dL) 33.0 RDW (11 - 16 %) 14.0 Plt Count (130 - 400 K/mm3) 252 MPV (8.9 - 12.1 fL) 10.2 Neut % (Auto) (45 - 70 %) 65.9 Lymph % (Auto) (20 - 40 %) 21.4 Powell % (Auto) (3 - 10 %) 9.9 Eos % (Auto) (1 - 5 %) 2.1 Baso % (Auto) (0.0 - 1.1 %) 0.5 Neut # (Auto) (2.00 - 7.50 K/mm3) 4.07 Lymph # (Auto) (1.50 - 4.00 K/mm3) 1.32 L Powell # (Auto) (0.2 - 0.8 K/mm3) 0.61 Eos # (Auto) (0.04 - 0.4 K/mm3) 0.13 Baso # (Auto) (0.02 - 0.10 K/mm3) 0.03 Add Manual Diff (MANUAL DIFF) NO Nucleated RBC % (0 - 0 %) 0 Vital Signs: Date Time Temp Pulse Resp B/P B/P Pulse O2 O2 Flow FiO2 Mean Ox Delivery Rate 09/21 1904 37.2 82 16 122/74 89.8 96 09/21 1810 37.2 93 16 158/90 112.7 100 Room air 09/21 1217 37.0 91 14 145/92 109.5 100 Room air 09/21 0701 37.0 82 14 117/78 90.9 95 Room air 09/21 0333 35.8 98 16 103/63 76.6 100 09/21 0330 79 98 3 32 09/21 0330 98 CPAP 3 32 09/20 2215 37.0 80 16 110/68 82.1 99 09/20 2148 97 Room air 21 A/P: s/p Joint Arthroplasty 1)Anticoagulation instituted 2)PT progressing 3)Following labs 4. Pt c/o constipation, add bowel regimen and will continue to monitor 5)Discharge planning at 2030 RPT #:[id number] OF REPORT PRProgress Cajj3659-73-80D52:28:00Y.WQON23304683-6087MYLxbds able for patient uiudQSMZRPGMOQVCLN3631-30-19I38:31:04 HCATO 2020-09-21 20:28:00 HVoiwqadaoh82332653V rPKjycNwU7niMAWtgBlspDMfbDOiE MCMmRWNflwnJkHCklo0+Q0EcquATD2zwZA2544-23-87P69:2 8:00 [facility] ([facility])Orthopaedic Progress NoteREPORT#:[id number] REPORT STATUS: SignedDATE:09/21/20 TIME: 2027 PATIENT: INDIRA SUAREZ UNIT #: [id number]#: [id number] [facility]GE: 64 SEX: F ATTEND: Jadiel Ahmadi [facility] AUTHOR: Racheal White NP * ALL edits or amendments must be made on the electronic/computer document * Diagnosis, Assessment PlanFree text A P:C/O constipation. Pain mild-moderate. No Shortness of breath or chest symptoms. Afebrile VSSAlert, oriented, no acute distressWound clean and dry. No significant drainage.Neurologic and vascular systems intact distally.(-) Kishan s(-) Calf tendernessLaboratory Tests: 09/21 1820 Chemistry Sodium (136 - 145 mmol/L) 142 Potassium (3.5 - 5.1 mmol/L) 3.5 Chloride (98 - 107 mmol/L) 104.0 Carbon Dioxide (21 - 32 mmol/L) 27.0 BUN (7 - 18 mg/dL) 12 Creatinine (0.55 - 1.30 mg/dL) 0.67 Glomerular Filtr Rate (>60) 88.1 Glucose (70 - 110 mg/dL) 107 Calcium (8.2 - 10.1 mg/dL) 7.9 L Magnesium (1.8 - 2.4 mg/dL) 2.4 Total Bilirubin (0.2 - 1.00 mg/dL) 0.60 AST (15 - 37 U/L) 15.0 ALT (12 - 78 U/L) 16.0 Total Alk Phosphatase (46 - 116 U/L) 70 Total Protein (6.4 - 8.2 g/dL) 6.1 L Albumin (3.4 - 5.0 g/dL) 3.2 L Globulin (2.2 - 4.2 g/dL) 2.9 Albumin/Globulin Ratio (0.7 - 2.0) 1.1 Hematology WBC (5.8 - 11.0 K/mm3) 6.2 RBC (4.2 - 5.4 M/mm3) 3.09 L Hgb (12 - 16 g/dL) 8.9 L Hct (37 - 47 %) 27.0 L MCV (80 - 98 fL) 87 MCH (27 - 34 pg) 28.8 MCHC (30.8 - 34.1 g/dL) 33.0 RDW (11 - 16 %) 14.0 Plt Count (130 - 400 K/mm3) 252 MPV (8.9 - 12.1 fL) 10.2 Neut % (Auto) (45 - 70 %) 65.9 Lymph % (Auto) (20 - 40 %) 21.4 Powell % (Auto) (3 - 10 %) 9.9 Eos % (Auto) (1 - 5 %) 2.1 Baso % (Auto) (0.0 - 1.1 %) 0.5 Neut # (Auto) (2.00 - 7.50 K/mm3) 4.07 Lymph # (Auto) (1.50 - 4.00 K/mm3) 1.32 L Powell # (Auto) (0.2 - 0.8 K/mm3) 0.61 Eos # (Auto) (0.04 - 0.4 K/mm3) 0.13 Baso # (Auto) (0.02 - 0.10 K/mm3) 0.03 Add Manual Diff (MANUAL DIFF) NO Nucleated RBC % (0 - 0 %) 0 Vital Signs: Date Time Temp Pulse Resp B/P B/P Pulse O2 O2 Flow FiO2 Mean Ox Delivery Rate 09/21 1904 37.2 82 16 122/74 89.8 96 09/21 1810 37.2 93 16 158/90 112.7 100 Room air 09/21 1217 37.0 91 14 145/92 109.5 100 Room air 09/21 0701 37.0 82 14 117/78 90.9 95 Room air 09/21 0333 35.8 98 16 103/63 76.6 100 09/21 0330 79 98 3 32 09/21 0330 98 CPAP 3 32 09/20 2215 37.0 80 16 110/68 82.1 99 09/20 2148 97 Room air 21 A/P: s/p Joint Arthroplasty 1)Anticoagulation instituted 2)PT progressing 3)Following labs 4. Pt c/o constipation, add bowel regimen and will continue to monitor 5)Discharge planning at 2030 at 1055 RPT #:[id number] OF REPORT PRProgress Tihn2514-55-03W82:28:00Y.XCKR55945908-5412VMPsuzd able for patient rjnuWHKEAWJEXHPHRP1694-97-98S24:55:55 HCATO 2020-09-21 18:21:00 DCxcjrspjuc86962000O 7Xm4jgxpUNIi7no+B0HbhXRaQNJfh jTxZXt3zK2VS3yOgvgHLwmRylSQRj1Y3BA3446-00-46G72:2 1:[id number] [place] [address] PATIENT NAME: INDIRA SUAREZ ADMIT DATE: 09/18/20ACCOUNT NO: [id number] ROOM NO: [facility] AGE: 64 REPORT TYPE: ELECTROCARDIOGRAM SEX: F ADMITTING PHYSICIAN:Jadiel Ahmadi MD ATTENDING PHYSICIAN:Jadiel Ahmadi MD Order:[id number] Reason : CHEST PAIN Test Date/Time Stamp:FriSep 21 2020 18:21:39Blood Pressure : / mmHGVent. Rate : 082 BPM Atrial Rate : 082 BPM P-R Int : 148 ms QRS Dur : 098 ms QT Int : 392 ms P-R-T Axes : 038 030 010 degrees QTc Int : 457 ms Normal sinus rhythmNonspecific ST abnormalityAbnormal ECG Confirmed by BIGG FUENTES MD ([id number]) on 09/24/2020 3:53:31 PM Referred By: Jadiel Ahmadi Confirmed by:BIGG FUENTES MD at 1553 PATIENT NAME: INDIRA SUAREZ .[id number] AVAvailable for patient euvlBYUZSTRHWZFPXN7314-20-36J21:53:53 HCATO 2020-09-21 16:40:00 NFbuveurcvs49755248Y BlzHg9L9bH+DdjhAUkALwIX7dmBJ6 s+RvYqxIYbIgD+nRc9Mvu8toWgEZ7YO2qa6132-34-03X33:4 0:00 [facility] ([facility])Clinical NoteREPORT#:[id number] REPORT STATUS: SignedDATE:09/21/20 TIME: 1639 PATIENT: INDIRA SUAREZ UNIT #: [id number]#: [id number] ROOM/BED: [facility]-ADOB: [birth year] AGE: 64 SEX: F ATTEND: Jadiel Ahmadi AUTHOR: Eloy Hartmann MD * ALL edits or amendments must be made on the electronic/computer document * Clinical NoteNote:[facility] Eloy Huffman MD(cell text [phone])Internal Medicine Consult at request of : Dr. Jadiel Ahmadi Chief Complaint: left knee pain HPI: 64yo F is now s/p Left Total Knee Arthroplasty (TKA) by Dr. Ahmadi on 09/18/2020. Ms. Suarez relates 2 years of progressive left knee pain (recently severe, -12/12), worse with activity, and popping crunchy with restricted motion at times in quality. She has failed conservative management.Ms. Suarez reports nausea and vomiting x2 days unresolved by Zofran. She denies abdominal pain. Her last bowel movement was prior to surgery. She has received mag citrate and duculax po. Abdominal x-ray reveals adynamic ileus. Comorbidities: see below. PmHx: . Hypertension, anxiety, sleep apnea, hernia, irregular heartbeat ALLERGY: Allergies:bee venom protein (honey bee) (Coded, Severe, EXTREME SWELLING, 09/11/20)butorphanol (From STADOL) (Coded, Severe, AFFECTS BREATHING, 09/11/20)codeine (Coded, Severe, HEADACHE, 09/11/20)meperidine (From DEMEROL) (Coded, Severe, BEHAVIOR CHANGE, 09/11/20)peanut (Coded, Severe, ITCHY THROAR/WHEEZING, 09/11/20)shellfish derived (Coded, Severe, THROAT ITCHING/WHEEZING, 09/11/20)Sulfa (Sulfonamide Antibiotics) (Coded, Intermediate, VOMITING, 09/11/20)epinephrine (Coded, Intermediate, HEART RACING, 09/11/20)oxytetracycline (From TERRAMYCIN) (Coded, Intermediate, VOMITING, 09/11/20)pentazocine (From TALWIN) (Coded, Intermediate, VOMITING, 09/11/20)promethazine (From PHENERGAN) (Coded, Intermediate, VOMITING/HEADACHE, 09/11/20)propoxyphene (From DARVON) (Coded, Intermediate, VOMITING, 09/11/20) Home Medications: Home Medications:METOPROLOL SUCC XL (TOPROL XL) 50 MG PO BEDTIME CHOLECALCIFEROL (VITAMIN D3) (VITAMIN D3) 2,000 UNITS PO DAILY ASCORBIC ACID (VITAMIN C) 1,000 MG PO DAILY ZINC GLUCONATE 50 MG PO DAILY clonazePAM (KlonoPIN) 0.5 MG PO DAILY PRN SUCRALFATE (CARAFATE) 1 GM [facility] .Cholecystectomy, , bilateral feet, bilateral breast lumpectomy,appendectomy SHx: Tob: none FHx: .No significant hx of DVT/PE.Alcohol: 1none Drugs: none Lives: with spouse Vitals:Vital SignsDate Temp Pulse Resp B/P B/P Mean Pulse Ox HsZ524/19-09/21 96.4-98.6 79-98 14-16 103-145/62-92 76.6-109.5 95-100 21-32 Gen: Alert, in mild discomfort, nl nutrition.EYE: Nl lids conjunctiva.ENT: Nl ears Nose, nl lips,. Neck: Supple, nl thyroid, No masses.CV: Regular Rate Rhythm, no heave or significant murmur. Edema- none RESP: Clear to Auscultation, normal Respiratory effort.ABD: Soft, NonDistended, no masses, bowel sounds heard.LYM: No significant cervical Lymphadenopathy.MS: No sign of compartment syndrome, NEURO: Nonfocal, grossly normal sensation of LE, +Ankle DF/PF . Preop Labs (09/11/20): CBC:. Hgb 11.2, Plt 280, CHEM: Na 142, K 4.0, Cr 0.64 (eGFR 92.8%), EKG: NSR. [facility] Lab xray 09/21/20:Recent Impressions:RADIOLOGY - XR ABDOMEN 1 V 09/21 1610 Report Impression - Status: SIGNED Entered: 09/21/2020 1616 IMPRESSION:Findings suggestive of adynamic ileus.Impression By: Chelsey - Raheel Kwon M.D. (medium to high risk of complications or morbidity) (major surgery) (IV sedative, meds) Assessment Plan1.) Anemia of Acute Blood Loss- .asymptomatic.2.) S/p Left TKA- .acute multi-modal pain control and followup. Anticoagulationas per Dr. Ahmadi.3.) Ileus- .patient just had a large BM (after enema), xrays and clinical exam consistent with ileus (no significant pain, no sign of obstruction). Encouraged ambulation.4.) OsteoArthritis FLAVIO- .continue on Rx. CPAP5.) Hypertension- .follow BP and hold Rxs if SBP<120. Eloy Huffman M.D. Thanks! G8427 - current medications obtained and reviewed.G8730 - pain assessment with tool and followup aggt2464T - offered discussion on advanced care plan and patient declined to addressissue at this time. at 2230 RPT #:[id number] OF REPORT CLClinical efvv4937-29-30N10:40:00Y.XNKS79851875-9704QFUgeyx able for patient vacfZXCFCYKHVMXLAB9055-70-75Y11:30:15 HCATO 2020-09-21 08:08:00 DIpkemhmstn40806286x IsilpQMcLl2qtrAqGoNnq8CvMAfWP IKsta9dsZDSJyPXOSUVKDT9ormLJ//zK+n0337-97-81M19:0 8:00 [facility] ([facility])Orthopaedic Progress NoteREPORT#:[id number] REPORT STATUS: SignedDATE:09/21/20 TIME: 08 PATIENT: INDIRA SUAREZ UNIT #: [id number]#: [id number] [facility] AGE: 64 SEX: F ATTEND: Jadiel Ahmadi [facility] AUTHOR: Racheal White NP * ALL edits or amendments must be made on the electronic/computer document * ObjectiveVS:Last Documented: Result Date Time Pulse Ox 95 09/21 700 B/P 117/78 09/21 700 B/P Mean 90.9 09/21 700 O2 Delivery Room air 09/21 700 Temp 37.0 09/21 700 Pulse 82 09/21 07 Resp 14 09/21 700 FiO2 32 09/21 0330 O2 Flow Rate 3 09/21 329 PATIENT WEIGHT: Weight (lb): 272Weight (oz): 7.86Weight (kg): 123.377 Diagnosis, Assessment PlanHospital course to date:Comfortable. Pain mild-moderate. No Shortness of breath or chest symptoms. Afebrile VSSAlert, oriented, no acute distressWound clean and dry. No significant drainage.Neurologic and vascular systems intact distally.(-) Kishan s(-) Calf tendernessVital Signs: Date Time Temp Pulse Resp B/P B/P Pulse O2 O2 Flow FiO2 Mean Ox Delivery Rate 09/21 0701 37.0 82 14 117/78 90.9 95 Room air 09/21 0333 35.8 98 16 103/63 76.6 100 / 0330 79 98 3 32 / 0330 98 CPAP 3 32 09/20 2215 37.0 80 16 110/68 82.1 99 09/20 2148 97 Room air 09/20 Room air 09/20 1901 36.6 82 16 112/62 78.6 98 09/20 1525 37.1 98 14 115/72 86.4 100 Nasal cannula 09/20 1127 36.7 71 14 133/80 97.8 100 CPAP A/P: s/p Joint Arthroplasty 1)Anticoagulation instituted 2)PT progressing: patient was able to work with PT more but still mamanging pain 3)Following labs 4)Discharge planning Free text A P:Comfortable. Pain mild-moderate. No Shortness of breath or chest symptoms. Afebrile VSSAlert, oriented, no acute distressWound clean and dry. No significant drainage.Neurologic and vascular systems intact distally.(-) Kishan s(-) Calf tendernessLaboratory Tests: 09/19 0356 Hematology Hgb (12 - 16 g/dL) 9.7 L Hct (37 - 47 %) 29.1 L Vital Signs: Date Time Temp Pulse Resp B/P B/P Pulse O2 O2 Flow FiO2 Mean Ox Delivery Rate 09/21 0701 37.0 82 14 117/78 90.9 95 Room air 09/21 0333 35.8 98 16 103/63 76.6 100 09/21 0330 79 98 3 32 09/21 0330 98 CPAP 3 32 09/20 2215 37.0 80 16 110/68 82.1 99 09/208 97 Room air 09/20 Room air 09/20 1901 36.6 82 16 112/62 78.6 98 09/20 1525 37.1 98 14 115/72 86.4 100 Nasal cannula 09/20 1127 36.7 71 14 133/80 97.8 100 CPAP A/P: s/p Joint Arthroplasty 1)Anticoagulation instituted 2)PT progressing: patient was unable to work with PT due to severe nausea. Wechanged her pain medications and will f/u tomorrow 3)Following labs 4)Discharge planning at 0809 at 1055 RPT #:[id number] OF REPORT PRProgress Ykzl5956-83-43S39:08:00Y.EBXR59938347-6068LBVmmml able for patient pjtnVQKZHTEIIFCBYL5933-55-24I79:55:45 HCATO 2020-09-21 08:08:00 WSnifzrzgkf76264907u eyGs5851cxQE158pugoGR6KNxHX/a yDF+b+0HDeivjkkWNOyq606anWkyaLf9U+6179-11-62P65:0 8:00 [facility] ([facility])Orthopaedic Progress NoteREPORT#:[id number] REPORT STATUS: SignedDATE:09/21/20 TIME: 807 PATIENT: INDIRA SUAREZ UNIT #: [id number]#: [id number] [facility] [birth year] AGE: 64 SEX: F ATTEND: Jadiel Ahmadi [facility] AUTHOR: Racheal White NP * ALL edits or amendments must be made on the electronic/computer document * ObjectiveVS:Last Documented: Result Date Time Pulse Ox 95 09/21 0701 B/P 117/78 09/21 0701 B/P Mean 90.9 09/21 07 O2 Delivery Room air 09/21 07 Temp 37.0 09/21 07 Pulse 82 09/21 0701 Resp 14 09/21 07 FiO2 32 09/21 0330 O2 Flow Rate 3 09/21 0330 PATIENT WEIGHT: Weight (lb): 272Weight (oz): 7.86Weight (kg): 123.377 Diagnosis, Assessment PlanHospital course to date:Comfortable. Pain mild-moderate. No Shortness of breath or chest symptoms. Afebrile VSSAlert, oriented, no acute distressWound clean and dry. No significant drainage.Neurologic and vascular systems intact distally.(-) Kishan s(-) Calf tendernessVital Signs: Date Time Temp Pulse Resp B/P B/P Pulse O2 O2 Flow FiO2 Mean Ox Delivery Rate 09/21 0701 37.0 82 14 117/78 90.9 95 Room air 09/21 0333 35.8 98 16 103/63 76.6 100 / 0330 79 98 3 32 / 0330 98 CPAP 3 32 09/20 2215 37.0 80 16 110/68 82.1 99 09/20 2148 97 Room air 09/20 Room air 09/20 190 36.6 82 16 112/62 78.6 98 09/20 1525 37.1 98 14 115/72 86.4 100 Nasal cannula 09/20 1127 36.7 71 14 133/80 97.8 100 CPAP A/P: s/p Joint Arthroplasty 1)Anticoagulation instituted 2)PT progressing: patient was able to work with PT more but still mamanging pain 3)Following labs 4)Discharge planning Free text A P:Comfortable. Pain mild-moderate. No Shortness of breath or chest symptoms. Afebrile VSSAlert, oriented, no acute distressWound clean and dry. No significant drainage.Neurologic and vascular systems intact distally.(-) Kishan s(-) Calf tendernessLaboratory Tests: 09/19 0356 Hematology Hgb (12 - 16 g/dL) 9.7 L Hct (37 - 47 %) 29.1 L Vital Signs: Date Time Temp Pulse Resp B/P B/P Pulse O2 O2 Flow FiO2 Mean Ox Delivery Rate 09/21 0701 37.0 82 14 117/78 90.9 95 Room air 09/21 0333 35.8 98 16 103/63 76.6 100 09/21 0330 79 98 3 32 / 0330 98 CPAP 3 32 09/20 2215 37.0 80 16 110/68 82.1 99 09/20 2148 97 Room air 09/20 Room air 09/20 1901 36.6 82 16 112/62 78.6 98 09/20 1525 37.1 98 14 115/72 86.4 100 Nasal cannula 09/20 1127 36.7 71 14 133/80 97.8 100 CPAP A/P: s/p Joint Arthroplasty 1)Anticoagulation instituted 2)PT progressing: patient was unable to work with PT due to severe nausea. Wechanged her pain medications and will f/u tomorrow 3)Following labs 4)Discharge planning at 0809 RPT #:[id number] OF REPORT PRProgress Uoql7114-72-25T71:08:00Y.MCZC72531746-3308KWUedii able for patient meoqUBNIMKSYPFULAA9019-48-71M27:10:09 HCATO 2020-09-21 08:06:00 IPinjvkgcxa11635583J xOAFLqTk+1XXKwAV5Ycna4SA7C3lo CE1n/DbCl3bQV2mGaaKFUdzwCXRvgYNWFu8971-52-68C20:0 6:00 [facility] ([facility])Orthopaedic Progress NoteREPORT#:[id number] REPORT STATUS: SignedDATE:09/21/20 TIME: 08 PATIENT: INDIRA SUAREZ UNIT #: [id number]#: [id number] [facility] [birth year] AGE: 64 SEX: F ATTEND: Jadiel Ahmadi [facility] AUTHOR: Racheal White NP * ALL edits or amendments must be made on the electronic/computer document * Diagnosis, Assessment PlanHospital course to date:Comfortable. Pain mild-moderate. No Shortness of breath or chest symptoms. Afebrile VSSAlert, oriented, no acute distressWound clean and dry. No significant drainage.Neurologic and vascular systems intact distally.(-) Kishan s(-) Calf tendernessVital Signs: Date Time Temp Pulse Resp B/P B/P Pulse O2 O2 Flow FiO2 Mean Ox Delivery Rate 09/21 0701 37.0 82 14 117/78 90.9 95 Room air 09/21 0333 35.8 98 16 103/63 76.6 100 09/21 0330 79 98 3 32 09/21 0330 98 CPAP 3 32 09/205 37.0 80 16 110/68 82.1 99 09/20 2148 97 Room air 09/20 Room air 09/20 1901 36.6 82 16 112/62 78.6 98 09/20 1525 37.1 98 14 115/72 86.4 100 Nasal cannula 09/20 1127 36.7 71 14 133/80 97.8 100 CPAP A/P: s/p Joint Arthroplasty 1)Anticoagulation instituted 2)PT progressing 3)Following labs 4)Discharge planning Free text A P:Comfortable. Pain mild-moderate. No Shortness of breath or chest symptoms. Afebrile VSSAlert, oriented, no acute distressWound clean and dry. No significant drainage.Neurologic and vascular systems intact distally.(-) Kishan s(-) Calf tendernessLaboratory Tests: 09/19 0356 Hematology Hgb (12 - 16 g/dL) 9.7 L Hct (37 - 47 %) 29.1 L A/P: s/p Joint Arthroplasty 1)Anticoagulation instituted 2)PT progressing: patient was unable to work with PT due to severe nausea. Wechanged her pain medications and will f/u tomorrow 3)Following labs 4)Discharge planning at 0808 at 1055 RPT #:[id number] OF REPORT PRProgress Xtap0559-44-50Z37:06:00Y.ZORD81569039-4624LMQhtcg able for patient edfdRWNDYOWEJTKQPQ7587-46-16J27:55:45 HCATO 2020-09-21 08:06:00 EQutbgqevhy03292163G mhoqosqwAmnmLn2/37JDVHZsyO836 1u8bYzC9poa07hK7Zeppq1VxocvIzTLivX6571-03-04U05:0 6:00 [facility] ([facility])Orthopaedic Progress NoteREPORT#:[id number] REPORT STATUS: SignedDATE:09/21/20 TIME: 805 PATIENT: INDIRA SUAREZ UNIT #: [id number]#: [id number] ROOM[facility]BED: [facility]-ADOB: [birth year] AGE: 64 SEX: F ATTEND: Jadiel Ahmadi [facility] AUTHOR: Racheal White NP * ALL edits or amendments must be made on the electronic/computer document * Diagnosis, Assessment PlanHospital course to date:Comfortable. Pain mild-moderate. No Shortness of breath or chest symptoms. Afebrile VSSAlert, oriented, no acute distressWound clean and dry. No significant drainage.Neurologic and vascular systems intact distally.(-) Kishan s(-) Calf tendernessVital Signs: Date Time Temp Pulse Resp B/P B/P Pulse O2 O2 Flow FiO2 Mean Ox Delivery Rate 09/21 0701 37.0 82 14 117/78 90.9 95 Room air 09/21 0333 35.8 98 16 103/63 76.6 100 09/21 0330 79 98 3 32 09/21 0330 98 CPAP 3 32 09/20 2215 37.0 80 16 110/68 82.1 99 09/20 2148 97 Room air 21 09/20 2000 Room air 09/20 1901 36.6 82 16 112/62 78.6 98 09/20 1525 37.1 98 14 115/72 86.4 100 Nasal cannula 09/20 1127 36.7 71 14 133/80 97.8 100 CPAP A/P: s/p Joint Arthroplasty 1)Anticoagulation instituted 2)PT progressing 3)Following labs 4)Discharge planning Free text A P:Comfortable. Pain mild-moderate. No Shortness of breath or chest symptoms. Afebrile VSSAlert, oriented, no acute distressWound clean and dry. No significant drainage.Neurologic and vascular systems intact distally.(-) Kishan s(-) Calf tendernessLaboratory Tests: 09/19 0356 Hematology Hgb (12 - 16 g/dL) 9.7 L Hct (37 - 47 %) 29.1 L A/P: s/p Joint Arthroplasty 1)Anticoagulation instituted 2)PT progressing: patient was unable to work with PT due to severe nausea. Wechanged her pain medications and will f/u tomorrow 3)Following labs 4)Discharge planning at 0808 RPT #:[id number] OF REPORT PRProgress Qwyu1327-46-14G31:06:00Y.LQIM81580273-9099IGIobiy able for patient yckhZKUZWXNVSFRNWS8246-79-60Z23:08:48 HCATO 2020-09-21 08:04:00 KBuqxvlmeyt27011479q ISXxk+pQ23Ix+kF45NsG2aCJwjyaw MgON0ybeujesRGmnA5zBsTbkiMno7EJA396006-11-60Q94:0 4:00 [facility] ([facility])Orthopaedic Progress NoteREPORT#:[id number] REPORT STATUS: SignedDATE:09/21/20 TIME: 08 PATIENT: INDIRA SUAREZ UNIT #: [id number]#: [id number] [facility] [birth year] AGE: 64 SEX: F ATTEND: Jadiel Ahmadi AUTHOR: Racheal White NP * ALL edits or amendments must be made on the electronic/computer document * Diagnosis, Assessment PlanFree text A P:Comfortable. Pain mild-moderate. No Shortness of breath or chest symptoms. Afebrile VSSAlert, oriented, no acute distressWound clean and dry. No significant drainage.Neurologic and vascular systems intact distally.(-) Kishan s(-) Calf tenderness A/P: s/p Joint Arthroplasty 1)Anticoagulation instituted 2)PT progressing: patient was unable to work with PT due to severe nausea. Wechanged her pain medications and will f/u tomorrow 3)Following labs 4)Discharge planning at 0805 at 1055 RPT #:[id number] OF REPORT PRProgress Iufw4108-27-79M33:04:00Y.WVKO89107936-4562TPStkem able for patient reecURPSTNNPVVYWGA2728-54-81Z85:55:44 HCATO 2020-09-21 08:04:00 CExfqydnsfo80517773X Uw5c2PAdp4sMR34GV0RigqEs+AYrC YweQtwl7pyceJDf78qo7ibDJFswc9KbeJl2682-29-22P30:0 4:00 [facility] ([facility])Orthopaedic Progress NoteREPORT#:[id number] REPORT STATUS: SignedDATE:09/21/20 TIME: 08 PATIENT: INDIRA SUAREZ UNIT #: [id number]#: [id number] [facility]GE[facility] 64 SEX: F ATTEND: Jadiel Ahmadi [facility] AUTHOR: Racheal White NP * ALL edits or amendments must be made on the electronic/computer document * Diagnosis, Assessment PlanFree text A P:Comfortable. Pain mild-moderate. No Shortness of breath or chest symptoms. Afebrile VSSAlert, oriented, no acute distressWound clean and dry. No significant drainage.Neurologic and vascular systems intact distally.(-) Kishan s(-) Calf tenderness A/P: s/p Joint Arthroplasty 1)Anticoagulation instituted 2)PT progressing: patient was unable to work with PT due to severe nausea. Wechanged her pain medications and will f/u tomorrow 3)Following labs 4)Discharge planning at 0805 RPT #:[id number] OF REPORT PRProgress Chtx1090-93-93A56:04:00Y.ADUV58009386-5053HZFwpkj able for patient cafsDVKCICDBKNVDOU3946-95-65A37:06:05 [facility]ATO 2020-09-19 07:30:00 [id number] 2yMnfYdEy2W1FARDn24qQBqfRZziU ns2xNBDaMcX+tSzHk7sxlIur2ETQAw3wDH3340-42-47T49:3 0:00 [facility] ([facility])Pain Management Progress NoteREPORT#:[id number] REPORT STATUS: SignedDATE:09/19/20 TIME: 729 PATIENT: INDIRA SUAREZ UNIT #: [id number]#: [id number] [facility] [birth year] AGE: 64 SEX: F ATTEND: BrisaJadiel MDADM AUTHOR: Magdalene Lane * ALL edits or amendments must be made on the electronic/computer document * SubjectiveChief Complaint:L KNEE PAIN S/P TKAComments:Last Documented: Result Date Time Pulse Ox 97 09/19 653 B/P 146/82 09/19 0654 B/P Mean 103.2 09/19 0554 O2 Delivery Room air 09/19 653 Temp 37.0 09/19 0654 Pulse 66 09/19 0654 Resp 16 09/19 653 O2 Flow Rate 5 09/19 0325 FiO2 32 09/18 2124 History: PMH: HTN, GERD, FLAVIO, OBESE POD: 1 APMS RN: Maeve WILLOUGHBY RN MD who placed block: DR. DONOVAN Type of block: AC S/S Activity status: PT SITTING UP IN BED WATCHING TV. Pain: STATES PAIN IS TOLERABLE. Physical Exam: VAS: 7 LOS: 1 Resp Quality: 1 Side Effects: NONE PT APPEARS TO BE COMFORTABLE AT THIS TIME. MOTOR MVMT AND STRENGTH INTACT TO LLE. Plan: BLOCK FOLLOW UP at 0737 at 0913 RPT #:[id number] OF REPORT PRProgress Qvjy7449-71-00S59:30:00Y.[id number] able for patient cwstSKPXZRDCSNIQAS6047-78-38E08:14:04 HCATO 2020-09-19 07:30:00 [id number] eLcIRknlYonu3wl+w9WlNR5tpasY9 a6Gn1Ayc+YakyokYWAun1YZgZ5DW6igdbM4866-52-05H60:3 0:00 [facility] ([facility])Pain Management Progress NoteREPORT#:[id number] REPORT STATUS: SignedDATE:09/19/20 TIME: 07 PATIENT: INDIRA SUAREZ UNIT #: [id number]#: [id number] [facility] [birth year] AGE: 64 SEX: F ATTEND: Jadiel Ahmadi MDADM AUTHOR: Magdalene Lane 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 DONOVAN Type of block: AC S/S Activity status: PT SITTING UP IN BED WATCHING TV. Pain: STATES PAIN IS TOLERABLE. Physical Exam: VAS: 7 LOS: 1 Resp Quality: 1 Side Effects: NONE PT APPEARS TO BE COMFORTABLE AT THIS TIME. MOTOR MVMT AND STRENGTH INTACT TO LLE. Plan: BLOCK FOLLOW UP at 0737 RPT #:[id number] OF REPORT PRProgress Urwa5953-62-85G29:30:00Y.[id number] able for patient wroaTRFUVLQLSBRIOL3480-26-81V62:37:56 HCATO 2020-09-18 14:46:00 QJldxfghkve50489413r bEjJeGIGFBYX8QEK4a2Jq36mBfcq+ WOfClXMJ2H/6WQJxRSL/7x0y7ZT4tMscHn8645-54-89O30:4 6:[id number] [facility] [address] [address] PATIENT NAME: INDIRA SUAREZ ADMIT DATE: 09/18/20ACCOUNT NO: [id number] ROOM NO: Y.523 AGE: 64 REPORT TYPE: OPERATIVE REPORT SEX: F ADMITTING PHYSICIAN:Jadiel Ahmadi MD ATTENDING PHYSICIAN:Jadiel Ahmadi MD OPERATION DATE: 09/18/2020 SURGEON: Jadiel Ahmadi MD JACQUARD CARD LACER: Rachana Sigala PA-C. PREOPERATIVE DIAGNOSES:1. Left knee end-stage degenerative disease.2. Obesity. POSTOPERATIVE DIAGNOSES:1. Left knee end-stage degenerative disease.2. Obesity. PROCEDURE: Complex left total knee arthroplasty. ANESTHESIA: COMPONENTS USED: Brantley and Nephew Legion posterior stabilized Oxinium femoralcomponent, size 7, Didi II left nonporous tibial baseplate, size 5 and 32-mmoval Didi II resurfacing patellar component, and a size 5-6, 3-4, 15-mmLegion PS XLPE high flexion articular insert. FINDINGS: End-stage degenerative disease of the left knee with complete jointspace loss, osteophyte formation, subchondral sclerosis, and bone on bonechanges. ESTIMATED BLOOD LOSS: 50 mL. REASONING FOR COMPLEX CASE MODIFIER: This patient had a body mass indexapproaching 40. The extremity was massive.This created an altered surgical field. The surgery itself (includingpositioning requiring several people so we would not hurt ourselves, extensileexposure, difficult retraction and maintenance of leg position, prolongedmulti-layered closure), as well as the effort and skill level required by myselfand my social service assistant was greater than two times the usual amount required for anarthroplasty. Because of this altered surgical field, a 22-modifier was usedwhile coding for this procedure.PROCEDURE IN DETAIL: The patient was brought to the operating room and placedin supine position. After the induction of anesthesia, a left lower extremityupper thigh tourniquet was placed. This required the help of several people toretract thigh pannus distally and abdominal pannus proximally so the tourniquet PATIENT NAME: INDIRA SUAREZ could be applied. In addition, the absolute weight of this leg was so huge thatit required a couple of people to hold it up, so that we could sterilely prepand drape properly. Tourniquet was inflated. Incision was made centered over the patient's anteriorknee. Dissection was sharply carried down through the subcutaneous tissues benedicto median parapatellar VMO splitting arthrotomy was performed. Medial side ofthe knee was released and the knee was flexed up. This required significanteffort by my social service assistant and myself because the patient's first had a massiveextremity that she literally had to hug to hold in position so that I had astable extremity to operate on, so that she could provide exposure. The patellabaja also made things quite difficult and releasing had to be performed aroundthe tibia in order to get this subluxated laterally. The patella subluxatedlaterally safely. Menisci were resected and ACL and PCL were resected as were osteophytes. Aproximal tibial cut was made. Its alignment was checked and found to beexcellent. The distal femoral cut was then completed and the knee was balancedin extension. The knee was then flexed up again, with significant struggles to try to holdthis massive extremity position with exposure. Femoral component sizing androtation were set, balancing the flexion and extension gaps and the femoral cutswere completed and the tibial keel was punched. The trial components wereplaced. The knee was found to have excellent symmetric stability in the medial,lateral, and anterior-posterior directions, both in flexion and extension aswell as excellent range of motion. The patella was everted and the patellar cut was made checking symmetry andthickness with calipers and the 3 lug holes were drilled and trial patellarcomponents found to have excellent tracking. The trials were removed. Thorough irrigation was performed. All the cutsurfaces were thoroughly washed and dried and cement was mixed. The cement wascoated on the cut surface and pressurized and coated on the components. Thecomponents were impacted in position, the knee was brought into full extensionwith trial polyethylene. Excess cement was removed from the edges of componentsbefore it hardened. The patellar clamp was used for patellar component. Once cement had hardened, tourniquet was deflated. Adequate hemostasisobtained. Thorough irrigation was performed and the final polyethylene wasplaced into position. Range of motion, stability, and patellar tracking onceagain found to be excellent. The arthrotomy was closed using Quill suture, subcutaneous tissue was closedusing Vicryl suture, and subcuticular stitch was used for skin, followed byDermabond and sterile dressing. The patient was awakened and transferred torecovery room in stable condition having tolerated the procedure well. Dictated By: Jadiel Ahmadi MDWT: OP:MARY/LAZARA./NTSDD: 09/18/2020 14:46:18DT: 09/18/2020 23:21:40Conf#: [id number]/DID#: [id number] PATIENT NAME: INDIRA SUAREZ Authenticated and Edited by Jadiel Ahmadi MD On 09/20/20 3:37:36 PM at 1539 PATIENT NAME: INDIRA SUAREZ tyvnku4668-65-62A83:21:00Y.[id number] lable for patient zxpsGXENLZSZIYTFNN2193-10-04C17:40:02 HCATO 2020-09-18 10:49:00 SCfsebqgsur41663123B cs5KaRQEsMFpUyXvyL9fIfeMz1oE9 LpGL84z/JcHuvO3zW5pNzddq0usMWYwwJx5410-10-06C50:4 9:00 [facility]Inv Procedure Note - BriefREPORT#:[id number] REPORT STATUS: SignedDATE:09/18/20 TIME: 1049 PATIENT: INDIRA SUAREZ UNIT #: [id number]#: [id number] ROOM/BED: 998-23DOB: [birth year] AGE: 64 SEX: F ATTEND: Jadiel Ahmadi MDADM AUTHOR: Jadiel Ahmadi MD * ALL edits or amendments must be made on the electronic/computer document * Op/Inv Proc Note - Brief TEXT Brief Op/Inv Procedure NoteNote details:Pre-procedure diagnosis: Left Knee Degenerative Joint Disease Post-procedure diagnosis: Same Procedures performed: Left Total Knee Arthroplasty Primary Surgeon: BRISA [employer] Project Manager: [Nirali SIGALA PA-C] Findings: Severe degenerative disease see dictated operative report for details Complications: None Estimated Blood Loss in ml s: [5-] at 1432 RPT #:[id number] OF REPORT PNProcedure wzhw1415-49-69F55:49:00Y.[id number] able for patient auwrJNQTUUEWATTCRZ8750-04-36U47:32:53 HCATO 2020-09-11 14:03:00 JNblfdmjkzc90730101f xP9r6xLtNd1o2j65zOdYceLpQJkTo /glhk3Qi8eztu/auVbonJ0U1L7Cg/U4W3919-95-47C98:0 3:[id number] [place] [address] PATIENT NAME: INDIRA SUAREZ ADMIT DATE: ACCOUNT NO: [id number] ROOM NO: AGE: 64 REPORT TYPE: ELECTROCARDIOGRAM SEX: F ADMITTING PHYSICIAN:Jadiel Ahmadi MD ATTENDING PHYSICIAN:Jadiel Ahmadi MD Order:[id number] Reason : PRE SURGERY Test Date/Time Stamp:FriSep 11 2020 14:03:19Blood Pressure : / mmHGVent. Rate : 061 BPM Atrial Rate : 061 BPM P-R Int : 150 ms QRS Dur : 100 ms QT Int : 420 ms P-R-T Axes : 049 071 060 degrees QTc Int : 422 ms Normal sinus rhythmNormal ECGNo previous ECGs availableConfirmed by BIGG FUENTES MD ([id number]) on 09/13/2020 7:39:22 PM Referred By: Jadiel Ahmadi Confirmed by:BIGG FUENTES MD at 1939 PATIENT NAME: INDIRA SUAREZ .[id number] AVAvailable for patient pfasRHXGDQLIYQCNKE6767-72-48R37:39:49 HCATO
--- NOTE | 2023-05-22 13:34 | RAD REPORT ---
EXAM DESCRIPTION: CT - Head Brain Wo Cont - 05/22/2023 1:11 pm CLINICAL HISTORY: Dizziness COMPARISON: 2015 TECHNIQUE: Computed axial tomography of the head was obtained. IV contrast was not requested. All CT scans are performed using dose optimization technique as appropriate and may include automated exposure control or mA/KV adjustment according to patient size. FINDINGS: An intracranial bleed is not seen The ventricles are normal in caliber No extra-axial fluid collection is noted. A 9 millimeter partially calcified density right frontal scalp mildly enlarged. Mildly prominent pineal calcification unchanged presumably idiopathic Fluid within the sinuses/ mastoids is not seen. IMPRESSION: No acute intracranial abnormality is seen Mild enlargement of a 9 millimeter partially calcified density right frontal scalp If patient's symptoms persist MRI of the brain would be recommended
[2023-05-22 13:35] LABS: Absolute Lymphocytes (CBC) 1.3 K/uL (0.7-4.9); Hematocrit 35.3 % (36.0-45.0); Lymphocytes % 25.2 % (15.3-44.8); MCV 87.6 fL (80-100); MPV 8.2 fL (7.6-11.3); Platelets 286 thou/uL (152-406); RBC Red Blood Cell Count 4.03 M/uL (3.86-4.86)
--- NOTE | 2023-05-22 13:35 | RAD REPORT ---
EXAM DESCRIPTION: Leo Single View05/22/2023 12:54 pm CLINICAL HISTORY: Chest pain COMPARISON: 2019 FINDINGS: Small radiopaque densities overlying the upper chest bilaterally presumably overlying erwin fact. The lungs appear clear of acute infiltrate. The heart is normal size
[2023-05-22 13:55] LABS: Magnesium 2.2 mg/dL (1.6-2.4); Potassium 3.9 mEq/L (3.5-5.1); Troponin High Sensitivity 4.4 pg/mL (<58.9)
[2023-05-22] MEDS ORDERED: ONDANSETRON 4 MG/2 ML VIAL ONE (15:02)
[2023-05-22] MEDS ORDERED: KETOROLAC 30 MG/ML INJ ONE (15:02)
[2023-05-22] MEDS ORDERED: DIPHENHYDRAMINE 50 MG/ML VIAL ONE (15:03)
--- NOTE | 2023-05-22 15:47 | EDPHYS ---
Physician Documentation [facility] Name: Alessandra Suarez Age: 67 yrs Sex: Female : 1955 Arrival Date: 05/22/2023 Time: 12:27 Bed 19 Private MD: ED Physician Adrienne Gong HPI: 05/22 15:14 This 67 yrs old Female presents to ER via EMS with complaints of Dizziness, Headache. ci 15:14 Patient is a 67-year-old female with PMH hypertension, anxiety who presents to the ED ci with chief complaint of dizziness, headache that began during physical therapy. Patient reports she developed dizziness, tingling on her tongue, left chest wall tingling that has eased up since arrival to the ER. Endorses frontal headache that came on gradually, not the worst headache of my life, no aggravating or relieving factors. Patient also endorses some nausea but no vomiting. Denies abdominal pain, fever, chills. She does endorse increased urinary frequency but no dysuria.. Historical: - Allergies: 12:42 Codeine; iw 12:42 Darvon; iw 12:42 Demerol; iw 12:42 Losartan; iw 12:42 Phenergan; iw 12:42 SHELLFISH; iw 12:42 Stadol; iw 12:42 Sulfa (Sulfonamide Antibiotics); iw 12:42 teramycin; iw 12:42 Talwin; iw - PMHx: 12:42 Anxiety; Hypertension; iw - PSHx: 12:42 L knee replacement; iw - Immunization history:: Adult Immunizations up to date. - Social history:: Smoking status: Patient denies any tobacco usage or history of. ROS: 15:14 Constitutional: Positive for chills, fatigue, Negative for body aches, fatigue, fever, ci 15:14 Constitutional: Negative for 15:14 Cardiovascular: Negative for chest pain, edema, orthopnea, 15:14 Respiratory: Negative for cough, orthopnea, shortness of breath, 15:14 Abdomen/GI: Negative for abdominal pain, nausea, vomiting, and diarrhea, Exam: 15:14 Constitutional: This is a well developed, well nourished patient who is awake, alert, ci and in no acute distress. Head/Face: Normocephalic, atraumatic. R frontal scalp lump Eyes: Pupils equal round and reactive to light, extra-ocular motions intact. Lids and lashes normal. Conjunctiva and sclera are non-icteric and not injected. Cornea within normal limits. Periorbital areas with no swelling, redness, or edema. ENT: Nares patent. No nasal discharge, no septal abnormalities noted. Tympanic membranes are normal and external auditory canals are clear. Oropharynx with no redness, swelling, or masses, exudates, or evidence of obstruction, uvula midline. Mucous membranes moist. Neck: Trachea midline, no thyromegaly or masses palpated, and no cervical lymphadenopathy. Supple, full range of motion without nuchal rigidity, or vertebral point tenderness. No Meningismus. Chest/axilla: Normal chest wall appearance and motion. Nontender with no deformity. No lesions are appreciated. Cardiovascular: Regular rate and rhythm with a normal S1 and S2. No gallops, murmurs, or rubs. Normal PMI, no JVD. No pulse deficits. Respiratory: Lungs have equal breath sounds bilaterally, clear to auscultation and percussion. No rales, rhonchi or wheezes noted. No increased work of breathing, no retractions or nasal flaring. Abdomen/GI: Soft, non-tender, with normal bowel sounds. No distension or tympany. No guarding or rebound. No evidence of tenderness throughout. Back: No spinal tenderness. No costovertebral tenderness. Full range of motion. Skin: Warm, dry with normal turgor. Normal color with no rashes, no lesions, and no evidence of cellulitis. MS/ Extremity: Pulses equal, no cyanosis. Neurovascular intact. Full, normal range of motion. Neuro: Awake and alert, GCS 15, oriented to person, place, time, and situation. Cranial nerves II-XII grossly intact. Motor strength 5/5 in all extremities. Sensory grossly intact. Cerebellar exam normal. Normal gait. Psych: Awake, alert, with orientation to person, place and time. Behavior, mood, and affect are within normal limits. Vital Signs: 13:40 BP 149 / 100; Pulse 68; Resp 18; Temp 98.1; Pulse Ox 100% ; cp4 MDM: 12:43 Patient medically screened. ci 15:46 Data reviewed: vital signs, nurses notes, lab test result(s), EKG, radiologic studies. ci 05/22 12:45 Order name: Basic Metabolic Panel; Complete Time: 14:19 ci 05/22 12:45 Order name: CBC with Diff; Complete Time: 14:19 ci 05/22 12:45 Order name: Magnesium; Complete Time: 14:19 ci 05/22 12:45 Order name: Troponin HS; Complete Time: 14:19 ci 05/22 16:36 Order name: Lipid Profile EDTN 05/22 16:36 Order name: Lipid Profile EDTN 05/22 12:45 Order name: XRAY Chest (1 view); Complete Time: 14:19 ci 05/22 14:20 Interpretation: Per Radiologist's finding(s): FINDINGS: Small radiopaque densities ci overlying the upper chest bilaterally presumably overlying artifact. The lungs appear clear of acute infiltrate. The heart is normal size. 05/22 12:45 Order name: CT Head Brain wo Cont; Complete Time: 14:19 ci 05/22 14:20 Interpretation: Per Radiologist's finding(s): IMPRESSION: No acute intracranial ci abnormality is seen Mild enlargement of a 9 millimeter partially calcified density right frontal scalp If patient's symptoms persist MRI of the brain would be recommended. 05/22 16:36 Order name: Echo with Doppler EDTN 05/22 16:36 Order name: Stroke Protocol [facility] 05/22 16:36 Order name: Carotid Artery Bilateral EDTN 05/22 12:45 Order name: EKG; Complete Time: 12:45 ci 05/22 12:45 Order name: Cardiac monitoring; Complete Time: 13:43 ci 05/22 12:45 Order name: EKG - Nurse/Tech; Complete Time: 13:02 ci 05/22 12:45 Order name: IV Saline Lock; Complete Time: 13:21 ci 05/22 12:45 Order name: Labs collected and sent; Complete Time: 13:26 ci 05/22 12:45 Order name: O2 Per Protocol; Complete Time: 13:21 ci 05/22 12:45 Order name: O2 Sat Monitoring; Complete Time: 13:21 ci Administered Medications: 15:32 Drug: Ketorolac IVP 10 mg 10 mg IVP once Route: IVP; Site: left antecubital; cp4 15:32 Drug: diphenhydrAMINE IVP 12.5 mg IVP once Route: IVP; Site: left antecubital; cp4 15:32 Drug: Ondansetron IVP 4 mg IVP once; over 2 minutes Route: IVP; Site: left antecubital; cp4 Disposition Summary: 05/22/23 15:46 Hospitalization Ordered Notes: Hospitalization Status: Inpatient Admission ci Provider: Jhon Milian Location: Telemetry/MedSur (Inpatient) ci Condition: Stable ci Problem: new ci Symptoms: are unchanged ci Bed/Room Type: Standard ci Room Assignment: 213(05/22/23 17:30) 6 Diagnosis - Dizziness and giddiness ci Forms: - Medication Reconciliation Form ci - SBAR form ci - Leadership Thank You Letter ci Signatures: Dispatcher [employer] Lily Mitchell RN RN Aixa Elliott 6 Dyana Wilks [facility] Adrienne Gong ci Corrections: (The following items were deleted from the chart) 17:30 15:46 ci bc6
--- NOTE | 2023-05-22 15:47 | ER ---
Nurse's Notes [facility] Name: Alessandra Suarez Age: 67 yrs Sex: Female : 1955 Arrival Date: 05/22/2023 Time: 12:27 Bed 19 Private MD: Diagnosis: Dizziness and giddiness Presentation: 05/22 12:40 Chief complaint: EMS states: pt was at PT and started to have a headache, then her iw tongue was tingling, left shoulder tingling and now she is nauseous, pt states she gets motion sickness easily. Coronavirus screen: At this time, the client does not indicate any symptoms associated with coronavirus-19. Ebola Screen: Patient negative for fever greater than or equal to 101.5 degrees Fahrenheit, and additional compatible Ebola Virus Disease symptoms Patient denies exposure to infectious person. Patient denies travel to an Ebola-affected area in the 21 days before illness onset. No symptoms or risks identified at this time. Risk Assessment: Do you want to hurt yourself or someone else? Patient reports no desire to harm self or others. 12:40 Method Of Arrival: EMS: [facility] iw 12:40 Acuity: KRISTA 3 iw 13:40 Initial Sepsis Screen: Does the patient meet any 2 criteria? No. Patient's initial cp4 sepsis screen is negative. Does the patient have a suspected source of infection? No. Patient's initial sepsis screen is negative. Onset of symptoms was May 22, 2023. Triage Assessment: 13:40 General: Appears in no apparent distress. Behavior is calm, cooperative, appropriate cp4 for age. Pain: Complains of pain in headache. Historical: - Allergies: 12:42 Codeine; iw 12:42 Darvon; iw 12:42 Demerol; iw 12:42 Losartan; iw 12:42 Phenergan; iw 12:42 SHELLFISH; iw 12:42 Stadol; iw 12:42 Sulfa (Sulfonamide Antibiotics); iw 12:42 teramycin; iw 12:42 Talwin; iw - PMHx: 12:42 Anxiety; Hypertension; iw - PSHx: 12:42 L knee replacement; iw - Immunization history:: Adult Immunizations up to date. - Social history:: Smoking status: Patient denies any tobacco usage or history of. Screenin:[facility] Fall Risk Assessment (Adult) History of falling in the last 3 months, cp4 including since admission No falls in past 3 months (0 pts) Confusion or Disorientation No (0 pts) Intoxicated or Sedated No (0 pts) Impaired Gait No (0 pts) Mobility Assist Device Used No (0 pt) Altered Elimination No (0 pt) Score/Fall Risk Level 0 - 2 = Low Risk Oriented to surroundings, Maintained a safe environment, Educated pt \T\ family on fall prevention, incl call for assistance when getting out of bed, Assessed \T\ reinforced patient's understanding of fall precautions, Provided non-skid footwear, Hourly rounding (assess needs \T\ fall precautionary measures) done. Abuse screen: Denies threats or abuse. Nutritional screening: No deficits noted. Tuberculosis screening: No symptoms or risk factors identified. Assessment: 18:27 Reassessment: Patient appears in no apparent distress at this time. Patient and/or iw family updated on plan of care and expected duration. Pain level reassessed. Patient is alert, oriented x 3, equal unlabored respirations, skin warm/dry/pink. Patient states feeling better. Patient states symptoms have improved. Vital Signs: 13:40 BP 149 / 100; Pulse 68; Resp 18; Temp 98.1; Pulse Ox 100% ; cp4 ED Course: 12:31 Patient arrived in ED. iw 12:42 Triage completed. iw 12:43 Adrienne Gong is Attending Physician. ci 12:56 XRAY Chest (1 view) In Process Unspecified. EDMS 13:07 Kell Cameron, RN is Primary Nurse. ll1 13:10 Arm band placed on. iw 13:11 CT Head Brain wo Cont In Process Unspecified. EDMS 13:14 Patient placed in an exam room, on a stretcher. ll1 13:40 Primary Nurse role handed off by Kell Cameron, RN cp4 13:40 Dyana Wilks is Primary Nurse. cp4 13:41 Bed in low position. Call light in reach. Side rails up X2. cp4 15:46 Jhon Milian MD is Hospitalizing Provider. ci 18:27 Provided Education on: . iw 18:27 No provider procedures requiring assistance completed. Patient admitted, IV remains in iw place. Administered Medications: 15:32 Drug: Ketorolac IVP 10 mg 10 mg IVP once Route: IVP; Site: left antecubital; cp4 15:32 Drug: diphenhydrAMINE IVP 12.5 mg IVP once Route: IVP; Site: left antecubital; cp4 15:32 Drug: Ondansetron IVP 4 mg IVP once; over 2 minutes Route: IVP; Site: left antecubital; cp4 Medication: 13:41 VIS not applicable for this client. cp4 Outcome: 15:46 Decision to Hospitalize by Provider. ci 18:39 Patient left the ED. nj1 Signatures: Dispatcher [employer] EDLily Hargrove RN RN Kell Cameron RN RN 1 Ondina Delatorre RN RN njDyana Pittman Adrienne Granger ci
[2023-05-22] MEDS ORDERED: MORPHINE 2 MG/ML SYR IV PRN (16:37)
--- NOTE | 2023-05-22 16:43 | P.HP ---
Certification for Inpatient Patient admitted to: Observation With expected LOS: <2 Midnights Patient will require the following post-hospital care: None Practitioner: I am a practitioner with admitting privileges, knowledge of patient current condition, hospital course, and medical plan of care. Services: Services provided to patient in accordance with Admission requirements found in Title 42 Section 412.3 of the Code of Federal Regulations <Gabby Salinas - Last Filed: 05/22/23 16:51> Patient History Date of Service: 05/22/23 Reason for admission: Headache, dizziness History of Present Illness: Ms. Suarez is a 67-year-old female with a primary history of hypertension, anxiety who presents to the emergency room with the chief complaint of dizziness, headache frontal area that began during the physical therapy this morning. Patient also reports that she developed dizziness tingling on her tongue which is relieved after coming to the emergency room. Patient reports that her headache was gradual, no aggravating or relieving factors. Associated symptoms includes nausea but no vomiting and increased urination. Patient denies chest pain, shortness of breath, abdominal pain, fever or chills. ED course Vital signs blood pressure 149/100, pulse 68, respiration 18, temperature 98.1, pulse ox 100% Lab evaluation CBC normal, basic metabolic panel is normal Radiology findings:CXR Radiopaque density covering the upper chest bilaterally, the lungs appear clear of acute infiltrate and the heart is normal size. CT brain without contrast no intracranial abnormality is seen. Mild enlargement of 9 mm partially calcified density right frontal scalp. Patient was given Zofran, Benadryl, ketorolac in the emergency room. Admitting the patient: Observation status diagnosis of headache, dizziness, rule out TIA. Home medications list reviewed: Yes - Past Medical/Surgical History Has patient received pneumonia vaccine in the past: Yes Diabetic: No -: HTN -: Sleep apnea -: c section -: lumpectomy both breast -: toe sx Psychosocial/ Personal History: Patient lives with her at home - Social History Smoking Status: Never smoker Alcohol use: No CD- Drugs: No Caffeine use: Yes Place of Residence: Home <SalinasGabby - Last Filed: 05/22/23 16:51> Date of Service: 05/22/23 <Jhon Milian - Last Filed: 05/22/23 18:16> Allergies butorphanol tartrate [From Stadol] Allergy (Verified 05/24/19 01:04) Shortness of breath codeine Allergy (Verified 05/24/19 01:04) Nausea/Vomiting meperidine HCl [From Demerol] Allergy (Verified 05/24/19 01:04) Unknown morphine Allergy (Verified 05/24/19 01:04) Anaphylaxis oxytetracycline [From Terramycin] Allergy (Verified 05/24/19 01:04) vomiting oxytetracycline HCl [From Terramycin] Allergy (Verified 05/24/19 01:04) vomiting peanut Allergy (Verified 05/24/19 01:04) Shortness of breath promethazine [From Phenergan] Allergy (Verified 05/24/19 01:04) Anaphylaxis propoxyphene HCl [From Darvon] Allergy (Verified 05/24/19 01:04) Anaphylaxis shellfish derived Allergy (Verified 05/24/19 01:04) Shortness of breath Sulfa (Sulfonamide Antibiotics) Allergy (Verified 05/24/19 01:04) Unknown Bees Allergy (Uncoded 01/25/19 15:10) Anaphylaxis taramycin Allergy (Uncoded 01/25/19 15:10) Nausea/Vomiting Home Medications: Cholecalciferol (Vitamin D3) [Vitamin D3] 2,000 unit PO DAILY 05/24/19 Lactobacillus Acidophilus [Acidophilus Lactobacilli] 1 cap PO DAILY 05/24/19 Metoprolol Tartrate [Lopressor*] 50 mg pe PO DAILY 05/24/19 clonazePAM [Clonazepam] 0.5 mg PO BIDP PRN 05/24/19 Review of Systems 10-point ROS is otherwise unremarkable <Gabby Salinas - Last Filed: 05/22/23 16:51> Physical Examination - Physical Exam General: Oriented x3 HEENT: Atraumatic, Normocephalic Neck: Supple, 2+ carotid pulse no bruit Respiratory: Clear to auscultation bilaterally, Normal air movement Cardiovascular: No edema, Normal pulses Capillary refill: <2 Seconds Gastrointestinal: Normal bowel sounds, Soft and benign Musculoskeletal: No clubbing, No swelling Integumentary: No rashes, No breakdown Neurological: Normal speech, Normal tone, Normal affect - Studies Laboratory Data (last 24 hrs) 01/18/24 01/18/24 13:24 13:24 WBC 5.20 Hgb 11.9 L Hct 35.3 L Plt Count 286 Sodium 139 Potassium 3.9 BUN 15 Creatinine 0.68 Glucose 117 H Magnesium 2.2 <Gabby Salinas - Last Filed: 05/22/23 16:51> - Studies Laboratory Data (last 24 hrs) 05/22/23 05/22/23 13:24 13:24 WBC 5.20 Hgb 11.9 L Hct 35.3 L Plt Count 286 Sodium 139 Potassium 3.9 BUN 15 Creatinine 0.68 Glucose 117 H Magnesium 2.2 <Jhon Milian - Last Filed: 05/22/23 18:16> Assessment and Plan - Problems (Diagnosis) (1) Dizziness Current Visit: Yes Status: Acute (2) Headache Current Visit: Yes Status: Acute Qualifiers: Headache chronicity pattern: acute headache (3) Frontal headache Current Visit: Yes Status: Acute (4) Hypertension Current Visit: Yes Status: Chronic Qualifiers: Hypertension type: primary hypertension Qualified Code(s): I10 - Essential (primary) hypertension - Plan Dizziness Headache, frontal headache Hypertension * Patient developed frontal headache this morning during the physical therapy, patient also reports that she developed dizziness, tingling on her tongue * Vital signs blood pressure 149/100, pulse 68, respiration 18, temperature 98.1, pulse ox 100% * Admitting the patient for observation and monitoring the symptoms * Reconciliate home medication and resume * Hypertensionpatient's blood pressure is controlled on home medications which include metoprolol * Consult neurologist Dr. eWaver * MRI in the morning ordered NIH Stroke Scale 1a. Level of consciousness: 0 - Alert; keenly responsive 1b. LOC questions: 0 - Both questions right 1c. LOC commands: 0 - Performs both tasks 2. Best Gaze: 0 - Normal 3. Visual: 0 - No visual loss 4. Facial Palsy: 0 - Normal symmetry 5a. Motor left arm: 0 - No drift for 10 seconds 5b. Motor right arm: 0 - No drift for 10 seconds 6a. Motor left le - No drift for 5 seconds 6b. Motor right le - No drift for 5 seconds 7. Limb ataxia: 0 - No ataxia 8. Sensory: 0 - Normal; no sensory loss 9. Best Language: 0 - Normal; no aphasia 10. Dysarthria: 0 - Normal 11. Extinction and Inattention: 0 - No abnormality 12. Distal motor function: 0 - No abnormality Total Score: 0 CODE STATUSfull code Diet low-sodium DVT prophylaxis Lovenox . Discharge Plan: Home Plan to discharge in: 24 Hours - Advance Directives Does patient have a Living Will: Yes Does patient have a Durable POA for Healthcare: Yes - Code Status/Comfort Care Code Status Assessed: Yes (Full code) Code Status: Full Code Physician Review: Patient Assessed, Agree with Above Assessment and Plan Critical Care: No Time Spent Managing Pts Care (In Minutes): 55 (Minutes) <Gabby Salinas - Last Filed: 05/22/23 16:51> - Plan Pt seen and examined. I agree with the note by the DRYCLEANER. Pt is a 67 yo female with past medical history of hypertension and anxiety who presents with dizziness, headache in the frontal area that began during the physical therapy (for plantar fascitis) this morning. It was associated with tingling sensation in her tongue which happened while in the ER. Her had to support her in order to prevent her from falling. On admission, lab studies show WBC 5.2, Hgb 11.9, K 3.9, 0.68, CT head shows 9mm density in the right frontal scalp. At bedside, pt is in NAD. ROS is significant for headache and dizziness. A/P: CVA symptoms: Pt complains of headache and dizziness. Will r/o CVA. CT head is unremarkable. Will follow up MRI brain, Echo and carotid ultrasound. Will allow permissive htn. Continue aspirin and statin. Will check lipid panel and A1c. Htn: Will allow permissive htn. Morbid obesity: Pt was advised to continue the weight loss diet and exercise. DVT ppx: SCD Code: full <Jhon Milian - Last Filed: 05/22/23 18:16>
[2023-05-22] MEDS: ENOXAPARIN 40 MG/0.4 ML SQ SCH (17:00)
[2023-05-22] MEDS ORDERED: ENOXAPARIN 40 MG/0.4 ML SQ ONE (18:23)
[2023-05-22] MEDS ORDERED: ALBUTEROL 2.5 MG/3 ML NEB SOL NEB PRN (19:44)
[2023-05-22] MEDS ORDERED: ACETAMINOPHEN 500 MG TAB PO PRN (19:44)
[2023-05-22 19:48] VITALS: BMI 42.0
--- NOTE | 2023-05-22 20:43 | RAD REPORT ---
EXAM DESCRIPTION: USCarotid Artery Bilateral05/22/2023 8:23 pm CLINICAL HISTORY: Numbness and hypertension COMPARISON: None FINDINGS: The velocity of the right internal carotid artery equals 102 cm/sec. The right ICA/CCA rat io normal The velocity of the left internal carotid artery equals 100 cm/sec. The left ICA/CCA ratio normal No significant plaque seen within the arteries The vertebral arteries demonstrate antegrade flow IMPRESSION: Unremarkable exam NASCET criteria used. Mild 0-49% stenosis Moderate 50-69% stenosis Severe 70-99% stenosis
[2023-05-22 21:02] LABS: Thyroid Stimulating Hormone 2.9 uIU/mL (0.358-3.740)
[2023-05-22 21:10] VITALS: O2SAT 98
[2023-05-23 06:08] LABS: Specific Gravity 1.028 (1.005-1.030); Urine Bacteria None Seen /HPF (<20); Urine Bilirubin NEGATIVE (Negative); Urine Blood Negative (Negative); Urine Clarity Clear (Clear); Urine Color Yellow (Yellow); Urine Glucose NEGATIVE (Negative); Urine Mucus 3+ /HPF (None Seen); Urine Protein TRACE (Negative); Urine RBC <5 /HPF (None Seen); Urine Urobilinogen Normal (Normal); Urine pH 5.5 (5.0-7.0)
[2023-05-23 07:17] LABS: Absolute Lymphocytes (CBC) 1.7 K/uL (0.7-4.9); Hematocrit 33.5 % (36.0-45.0); Lymphocytes % 38.5 % (15.3-44.8); MCV 87.4 fL (80-100); MPV 8.2 fL (7.6-11.3); Platelets 276 thou/uL (152-406); RBC Red Blood Cell Count 3.84 M/uL (3.86-4.86)
[2023-05-23 07:46] LABS: Magnesium 2.2 mg/dL (1.6-2.4); Phosphorus 3.6 mg/dL (2.5-4.9); Potassium 3.7 mEq/L (3.5-5.1)
[2023-05-23] MEDS ORDERED: LORazepam 2 MG/ML VIAL IV ONE ×2 (08:00→08:30)
--- NOTE | 2023-05-23 08:58 | RAD REPORT ---
EXAM DESCRIPTION: MRI - Brain Wo Cont - 05/23/2023 8:48 am CLINICAL HISTORY: Headache and dizziness COMPARISON: Head CT May 22, 2023 TECHNIQUE: Axial, sagittal, and coronal magnetic resonance images of the brain were obtained. FINDINGS: No significant abnormal signal within the brain 9 millimeter right frontal scalp partially calcified lesion Diffusion-weighted/ADC mapping does not reveal evidence of acute infarction. The ventricles are normal caliber. An extra-axial fluid collection is not noted. Fluid within the sinuses/mastoids is not seen IMPRESSION: No acute intracranial abnormality noted 9 millimeter partially calcified scalp lesion is nonspecific. It has mildly enlarged from 2016 exam
[2023-05-23] MEDS ORDERED: METOPROLOL TAR 50 MG TAB PO SCH (09:00)
[2023-05-23] MEDS ORDERED: ASPIRIN EC 81 MG TAB PO SCH (09:00)
[2023-05-23] MEDS: ENOXAPARIN 40 MG/0.4 ML SQ SCH (09:04)
[2023-05-23] MEDS ORDERED: clonazePAM 0.5 MG TAB PO PRN (10:00)
[2023-05-23] MEDS ORDERED: nadoloL 40 MG TAB PO SCH (10:00)
[2023-05-23] MEDS ORDERED: PNEUMOCOCCAL VACCINE 0.5 ML IMVAC ONE ×2 (12:00→14:30)
--- NOTE | 2023-05-23 13:32 | P.DS ---
Admission Date: 05/22/23 Discharge Date: 05/23/23 Disposition: ROUTINE DISCHARGE Discharge Condition: GOOD Reason for Admission: Headache, dizziness Brief History of Present Illness: Ms. Suarez is a 67-year-old female with a primary history of hypertension, anxiety who presents to the emergency room with the chief complaint of dizziness, headache frontal area that began during the physical therapy this morning. Patient also reports that she developed dizziness tingling on her tongue which is relieved after coming to the emergency room. Patient reports that her headache was gradual, no aggravating or relieving factors. Associated symptoms includes nausea but no vomiting and increased urination. Patient denies chest pain, shortness of breath, abdominal pain, fever or chills. ED course Vital signs blood pressure 149/100, pulse 68, respiration 18, temperature 98.1, pulse ox 100% Lab evaluation CBC normal, basic metabolic panel is normal Radiology findings:CXR Radiopaque density covering the upper chest bilaterally, the lungs appear clear of acute infiltrate and the heart is normal size. CT brain without contrast no intracranial abnormality is seen. Mild enlargement of 9 mm partially calcified density right frontal scalp. Patient was given Zofran, Benadryl, ketorolac in the emergency room. Admitting the patient: Observation status diagnosis of headache, dizziness, rule out TIA. Hospital Course: Pt is a 67 yo female with past medical history of hypertension and anxiety who presented with dizziness, headache in the frontal area that began during the physical therapy (for plantar fascitis) on 05/22/23. It was associated with tingling sensation in her tongue which happened while in the ER. Her had to support her in order to prevent her from falling. On admission, lab studies showed WBC 5.2, Hgb 11.9, K 3.9, 0.68, CT head showed 9mm density in the right frontal scalp. We admitted pt to rule out CVA. MRI brain and carotid ultrasound were unremarkable. MRI brain showed a non-specific 9 millimeter partially calcified scalp lesion. It has mildly enlarged from 2016 exam. Pt was advised to follow up with a Neurosurgeon if symptoms worsen. Pt also did Echo. We later resume her BP meds. Her symptoms were likely due to elevated blood pressure. We continued home med for other chronic medical problems. Pt was advised to continue to lose weight. She was in NAD prior to discharge. Vital Signs/Physical Exam: Temp Pulse Resp BP Pulse Ox 97.3 F 60 19 168/77 H 95 05/23/23 08:00 05/23/23 08:00 05/23/23 08:00 05/23/23 08:00 05/23/23 08:00 Laboratory Data at Discharge: WBC 4.40 thou/uL (4.3-10.9) 05/23/23 07:01 Hgb 11.5 g/dL (12.0-15.0) L 05/23/23 07:01 Hct 33.5 % (36.0-45.0) L 05/23/23 07:01 Plt Count 276 thou/uL (152-406) 05/23/23 07:01 Sodium 139 mEq/L (136-145) 05/23/23 07:01 Potassium 3.7 mEq/L (3.5-5.1) 05/23/23 07:01 BUN 14 mg/dL (7-18) 05/23/23 07:01 Creatinine 0.73 mg/dL (0.55-1.02) 05/23/23 07:01 Glucose 102 mg/dL (74-106) 05/23/23 07:01 Phosphorus 3.6 mg/dL (2.5-4.9) 05/23/23 07:01 Magnesium 2.2 mg/dL (1.6-2.4) 05/23/23 07:01 Triglycerides 140 mg/dL (<150) 05/23/23 07:01 Cholesterol 174 mg/dL (<200) 05/23/23 07:01 HDL Cholesterol 54 mg/dL (40-60) 05/23/23 07:01 Cholesterol/HDL Ratio 3.22 05/23/23 07:01 Home Medications: clonazePAM [Clonazepam] 0.5 mg PO BIDP PRN 05/24/19 Nadolol [Corgard] 40 mg PO DAILY 05/22/23 Nifedipine [Nifedipine ER] 30 mg PO BEDTIME 05/22/23 Physician Discharge Instructions: Continue ad gabriel activity. Take home meds. Follow up with PCP within 1 week Diet: AHA Activity: Ad gabriel Followup: Surendra Ng MD [Primary Care Provider] -
[2023-05-23 14:23] VITALS: BP 146/81; TEMP 97.5
[2023-05-23] MEDS ORDERED: NIFEDIPINE XL 30 MG TABLET PO SCH (21:00)
--- NOTE | 2023-05-26 07:09 | ECHO ---
HEIGHT: 5 ft 9 in WEIGHT: 284 lb 6.4 oz DATE OF STUDY: 05/23/[address]: Gabby Salinas NP 2-DIMENSIONAL: YES M.MODE: YES DOPPLER: YES COLOR FLOW: YES TDS: PORTABLE: YES DEFINITY: BUBBLE STUDY: DIAGNOSIS: HEADACHE/ DIZZINESS CARDIAC HISTORY: CATHERIZATION: SURGERY: PROSTHETIC VALVE: PACEMAKER: MEASUREMENTS (cm) DIASTOLIC (NORMALS) SYSTOLIC (NORMALS) IVSd 1.0 (0.6-1.2) LA Diam 3.3 (1.9-4.0) LVEF 62% LVIDd 4.3 (3.5-5.7) LVIDs 2.9 (2.0-3.5) %FS 33% LVPWd 0.9 (0.6-1.2) Ao Diam 3.0 (2.0-3.7) 2 DIMENSIONAL ASSESSMENT: RIGHT ATRIUM: NORMAL LEFT ATRIUM: NORMAL RIGHT VENTRICLE: NORMAL LEFT VENTRICLE: NORMAL TRICUSPID VALVE: MILD TRICUSPID REGURGITATION MITRAL VALVE: MILD MITRAL REGURGITATION PULMONIC VALVE: NORMAL AORTIC VALVE: NORMAL PERICARDIAL EFFUSION: NONE AORTIC ROOT: NORMAL LEFT VENTRICULAR WALL MOTION: NORMAL DOPPLER/COLOR FLOW: SEE BELOW COMMENTS: 1. NORMAL LEFT VENTRICULAR EJECTION FRACTION 60-65% WITH NORMAL WALL MOTION 2. NORMAL DIASTOLIC FUNCTION 3. MILD TRICUSPID REGURGITATION TECHNOLOGIST: BEV LIU
--- NOTE | 2023-05-26 17:08 | EKG ---
Test Date: 2023-05-22 Test Time: 12:58:05 Blocklayer: HUMERA MEASUREMENT RESULTS: Intervals: Rate: 57 LA: 168 QRSD: 96 QT: 448 QTc: 436 [place]: P: 47 LA: 168 QRS: 65 T: 41 INTERPRETIVE STATEMENTS: Sinus bradycardia Otherwise normal ECG Compared to ECG 05/24/2019 09:55:37 Sinus rhythm no longer present Electronically Signed On 05-26-23 16:56:25 OVERHEAD DOOR TECHNICIAN by Valdez Serrato
== END 2023-05-23 15:14 | disposition home or self-care (01) ==
LOC: ER 12:27 → ERHOLD 16:25 → 2ND 18:27
PROVIDERS: ADMIT Hospitalist; ATTEND Hospitalist
DX: R51.9 Headache, unspecified (principal); R42 Dizziness and giddiness; I10 Essential (primary) hypertension; F41.9 Anxiety disorder, unspecified; R11.0 Nausea; L98.9 Disorder of the skin and subcutaneous tissue, unspecified; Z68.41 Body mass index [BMI] 40.0-44.9, adult; Z71.3 Dietary counseling and surveillance; Z88.5 Allergy status to narcotic agent; Z88.2 Allergy status to sulfonamides; Z88.8 Allergy status to other drugs, medicaments and biological substances; Z23 Encounter for immunization
CPT/HCPCS: 93005; 93306; 85025 ×2; 81001; 80048 ×2; 36415; 83735 ×2; 84100; 80061; 84443; 84484; 84439; 70450; 71045; 90471; 93880; 70551; 90732; 97112; 97116; 97161; 96375; 96374; 99284; J1200; J1650 ×2; J2405; G0378

== ENCOUNTER 2024-05-03 10:30 | Day surgery (SDC) | payer OTHER ==
[2024-04-30 13:52] LABS: Absolute Eosinophils 0.2 K/uL (0-0.5); Absolute Lymphocytes (CBC) 1.7 K/uL (0.7-4.9); Absolute Monocytes 0.7 K/uL (0.1-1.3); Absolute Neutrophil 3.3 K/uL (1.8-8.0); Basophils % 0.6 % (0-1.3); Eosinophils % 3.3 % (0-4.4); Hematocrit 38.2 % (36.0-45.0); Hemoglobin 12.4 g/dL (12.0-15.0); MCH 28.9 pg (27.0-35.0); MCHC 32.4 g/dL (32.0-36.0); MCV 89.1 fL (80-100); MPV 8.6 fL (7.6-11.3); Monocytes % 11.3 % (3.3-12.3); Neutrophils % 55.8 % (41.7-73.7); Platelets 293 thou/uL (152-406); RBC Red Blood Cell Count 4.29 M/uL (3.86-4.86)
--- NOTE | 2024-04-30 17:06 | RAD REPORT ---
EXAMINATION: TWO VIEW CHEST XR CLINICAL INDICATION: Female, 68 years old. [facility] Pre-op pending scalp mass removals. Hypertension TECHNIQUE: 2 view radiographs of the chest were performed. COMPARISON: 05/22/2023 FINDINGS: The lungs are well inflated and clear. No pneumothorax or sizable effusion. The heart is normal in si ze. Mediastinal contours are unremarkable. IMPRESSION: No acute or significant abnormalities.
[2024-05-03] MEDS: Ringers Lactate 1,000 ML IV ONE (10:45)
[2024-05-03] MEDS ORDERED: FENTANYL CITR 100 MCG/2 ML ONE ×2 (10:46→10:52)
[2024-05-03] MEDS ORDERED: propofoL 200 MG/20 ML VIAL IV ONE ×4 (10:46→12:33)
[2024-05-03] MEDS ORDERED: ONDANSETRON 4 MG/2 ML VIAL ONE ×3 (10:48→10:53)
[2024-05-03] MEDS ORDERED: LIDOCAINE 2% MPF 5 ML VIAL ONE ×2 (10:48→10:52)
[2024-05-03] MEDS ORDERED: dexAMETHasone 4 MG/ML VIAL ONE ×3 (10:53→12:21)
[2024-05-03] MEDS ORDERED: KETOROLAC 30 MG/ML INJ ONE (10:53)
[2024-05-03] MEDS: SCOPOLAMINE HYDROBROMIDE PATCH TD ONE (11:00)
[2024-05-03] MEDS ORDERED: Mastisol Adhesive Liq ONE (11:01)
[2024-05-03] MEDS ORDERED: GLYCOPYRROLATE 0.2 MG/ML SYR ONE (11:03)
--- NOTE | 2024-05-03 11:19 | EKG ---
Test Date: 2024-04-30 Test Time: 14:31:34 Dental Practitioner: RADHA MEASUREMENT RESULTS: Intervals: Rate: 61 [place]: 168 QRSD: 98 QT: 436 QTc: 438 [place]: P: 53 [place]: 168 QRS: 70 T: 49 INTERPRETIVE STATEMENTS: Normal sinus rhythm Normal ECG Compared to ECG 05/22/2023 12:58:05 Sinus bradycardia no longer present Electronically Signed On 05-03-24 11:14:01 COMPUTER SUPPORT SPECIALIST INSTRUCTOR by Danis Riggs
[2024-05-03] MEDS: CEFAZOLIN SODIUM 1 GM/VIAL ONE (11:47)
--- NOTE | 2024-05-03 12:55 | P.BOP ---
Preoperative diagnosis: tender scalp masses Postoperative diagnosis: same Primary procedure: Excisional biopsy of two tender subQ salp masses Secondary procedure: 1. mid scalp 3 x 3 cm Other procedure(s): 2. anterior scalp 0.5 x 0.5 cm Estimated blood loss: <10cc Specimen: mass x 2 Findings: masses Anesthesia: General Complications: None Transferred to: Recovery Room Condition: Good
[2024-05-03 13:34] VITALS: O2SAT 98
[2024-05-03] MEDS: ONDANSETRON 4 MG/2 ML VIAL ONE (13:58)
[2024-05-03 14:30] VITALS: BP 144/77; TEMP 98.5
[2024-05-03] MEDS: ACETAMINOPHEN 500 MG TAB ONE (14:47)
== END 2024-05-03 15:50 | disposition home or self-care (01) ==
LOC: OR 10:30
PROVIDERS: ATTEND Surgery
PROC: 0JB00ZZ Excision of Scalp Subcutaneous Tissue and Fascia, Open Approach (ICD-10-PCS; 2024-05-03)
PROC: 0JB00ZZ Excision of Scalp Subcutaneous Tissue and Fascia, Open Approach (ICD-10-PCS; principal; 2024-05-03 13:00)
DX: L72.11 Pilar cyst (principal); D23.4 Other benign neoplasm of skin of scalp and neck
CPT/HCPCS: 93005; 85025; 80048; 36415; 88305; 71046; 11423; 11420; J2704 ×4; J1100 ×2; J2003; J3010 ×2; J2405 ×2; J7120; J0690

== ENCOUNTER 2024-08-22 10:11 | Observation (INO) | payer OTHER ==
--- OUTSIDE RECORDS SUMMARY | 2024-08-22 10:15 | XMS REPORT | Continuity of Care Document ---
Author Name Unknown Address [address] [facility] [address] [place] [address] [facility] Address [address] [facility] [address] [place] [address] Care Team Providers Care Sales Representative [employer] Name Role Phone Jadiel Ahmadi Attending Clinician Unavailabl e Jadiel Ahmadi Admitting Clinician Unavailabl e UNDEFINED Admitting Clinician Unavailable Payers Payer Name Policy Type Policy Number Effective Date Expirati on Date Source Allergies, Adverse Reactions, Alerts Allergy Name Allergy Type Status Severity Reaction(s) Onset Date Inactive Date Treating Clinician Comments Source prometha zine DA Active MO 09-11 00:00: 00 [facility] meperidi ne DA Active SV 09-11 00:00: 00 [facility] butorpha nol DA Active SV 09-11 00:00: 00 [facility] bee venom protein (honey bee) DA Active SV 09-11 00:00: 00 [facility] shellfis h derived FA Active SV 09-11 00:00: 00 [facility] Sulfa (Sulfona mide Antibiot ics) DA Active MO VOMITING 09-11 00:00: 00 [facility] peanut FA Active SV ITCHY THROAR/WHEEZ ING 09-11 00:00: 00 [facility] codeine DA Active SV HEADACHE 09-11 00:00: 00 [facility] propoxyp hene DA Active MO VOMITING 09-11 00:00: 00 [facility] pentazoc ine DA Active MO VOMITING 09-11 00:00: 00 [facility] epinephr ine DA Active MO HEART RACING 09-11 00:00: 00 [facility] oxytetra cycline DA Active MO VOMITING 09-11 00:00: 00 [facility] prometha zine DA Active MO VOMITING/HEA DACHE 09-11 00:00: 00 [facility] meperidi ne DA Active SV BEHAVIOR CHANGE 09-11 00:00: 00 [facility] butorpha nol DA Active SV AFFECTS BREATHING 09-11 00:00: 00 [facility] bee venom protein (honey bee) DA Active SV EXTREME SWELLING 09-11 00:00: 00 [facility] shellfis h derived FA Active SV THROAT ITCHING/WHEE ZING 09-11 00:00: 00 [facility] Sulfa (Sulfona mide Antibiot ics) DA Active MO 09-11 00:00: 00 [facility] peanut FA Active SV 09-11 00:00: 00 [facility] codeine DA Active SV 09-11 00:00: 00 [facility] propoxyp hene DA Active MO 20209-11 00:00: 00 [facility] pentazoc ine DA Active MO 09-11 00:00: 00 [facility] epinephr ine DA Active MO 09-11 00:00: 00 [facility] oxytetra cycline DA Active MO 09-11 00:00: 00 [facility] Procedures Procedure Date / Time Performed Performing Clinicia n Source [id number] 2020-09-18 00:00:00 [email or web address] [facility] Encounters Start Date/Time End Date/Time Encounter Type Admission Type Attending Clinicians Care Facility Care Department Encounter ID Source 2020-09-21 15:46:46 Inpatient Jadiel Santiago [facility] [id number] [facility] 2020-09-18 17:15:00 Inpatient Jadiel Santiago [facility] ADMI [id number] [facility] 2020-09-11 18:40:35 2020-09-11 18:40:35 Outpatient Dale Ahmadiilios [facility] [id number] [facility] 2020-09-11 13:46:25 2020-09-11 13:46:25 Outpatient Jadiel Ahmadi [facility] [id number] Results Test Description Test Time Test Comments Results Result Co mments Source BASIC METABOLIC [id number] 06:08:00* Test Item Value Reference Range Interpretation [...] 102.0 >60 Unit of m easure: mL/min/1.73 [id number] Range:Healthy Adults >90 mL/min/1.73 m2 For Chronic Kidney Disease: Stage II Mild Decrease in GFR 60-90 Stage III Moderate Decrease in GFR 30-59 Stage IV Severe Decrease in GFR 15-29 Stage V Kidney Failure <15 CREATININE (test code = CREAT) 0.59 mg/dL 0.55-1.30 N CALCIUM (test code = CA) 8.1 mg/dL 8.2-10.1 L COMPREHENSIVE METABOLIC [id number] 19:51:00* Test Item Value Reference Range Interpretation [...] 88.1 >60 Unit of m easure: mL/min/1.73 [id number] Range:Healthy Adults >90 mL/min/1.73 m2 For Chronic [...] code = ALKP) 70 U/L 46-116 N [id number] 19:51:00* Test Item Value Reference Range Interpretation Comme nts MAGNESIUM (test code = MAG) 2.4 mg/dL 1.8-2.4 N CBC W/AUTO [id number] 18:58:00* Test Item Value Reference Range Interpretation [...] % 0-0 N - XR ABDOMEN 1 [id number] 16:13:00 [facility] 1955 Sex: F Patient Name: INDIRA SUAREZ Unit No: [id number] EXAMS: CPT CODE: [id number] XR ABDOMEN 1 V 24283 IMAGES PROVIDED: 1 FINDINGS: Mild gaseous distention of the bowel is demonstrated which could represent an adynamic ileus. No evidence of small bowel obstruction. Cholecystectomy clips are present. No acute osseousabnormality. Multilevel lumbar spondylosis is visualized. IMPRESSION: Findings suggestive of adynamic ileus. at 1613 Reported and signed by: Raheel Kwon M.D. CC: Jadiel Ahmadi MD; Racheal White NP Technologist: Roman Amezquita(R) Transcribed D/ (1613) [facility]: INDIRA SUAREZ [address] PHYS: [email or web address] - Jadiel Ahmadi : 1955 AGE: 64 SEX: F [place], [place] [address] LOC: Y.523 A PHONE #: [phone] EXAM DATE: 09/21/2020 STATUS: ADM IN FAX #: [phone] RAD #: D/C DT PAGE 1 Signed Report Patient Name: INDIRA SUAREZ Unit No: [id number] EXAMS: CPT CODE: [id number] XR ABDOMEN 1 V 31974 (Continued) Orig Print D/T: S: 09/21/2020 (1616) [facility] NAME: INDIRA SUAREZ [address] [facility] PHYS: BELIA - Jadiel Ahmadi : 1955 AGE: 64 SEX: F [place], [place] [address] LOC: Y.523 A PHONE #: [phone] EXAM DATE: 09/21/2020 STATUS: ADM IN FAX #: [phone] RAD #: D/C DT PAGE 2 Signed ReportHGB [id number] 05:57:00* Test Item Value Reference Range Interpretation Comme nts HEMOGLOBIN (test code = HGB) 9.7 g/dL 12-16 L HEMATOCRIT (test code = HCT) 29.1 % 37-47 L SPECIMEN COMMENT: POD #1Novel Coronavirus 2019 [id number] 13:07:00* Test Item Value Reference Range Interpretation Comme nts Novel Coronavirus 2019 Inhouse (test code = COVNONPUI) Negative Negative Positive resul ts are indicative of the presence ydNOSA-YlK-0 RNA, clinical correlation with patient historyand other [...] for the identification of SARS-CoV-2 RNA usingthe Spacedeck M2000 System under the FDA Emergency UseAuthorization. The testing is performed by personneltrained in the procedures for the [place] M2000 moleculardiagnostic SARS-CoV-2 assay in vitro. Novel Coronavirus 2018 [id number] 13:06:00* Test Item Value Reference Range Interpretation Comme nts Novel Coronavirus 2019 Inhouse (test code = COVNONPUI) Negative Negative Positive resul ts are indicative of the presence hvFUYT-DjN-7 RNA, clinical correlation with patient historyand other [...] for the identification of SARS-CoV-2 RNA usingthe Spacedeck M2000 System under the FDA Emergency UseAuthorization. The testing is performed by personneltrained in the procedures for the Spacedeck M2000 moleculardiagnostic SARS-CoV-2 assay in vitro. AB HIV 22:30:00* Test Item Value Reference Range Interpretation Comme nts AB HIV 1 (test code = HIV1AB) NONREACTIVE NONREACTIVE DONE AT: [address] [id number] by [employer] 4[employer] Gen HIV Ag/Ab Combo Screen AB HIV 1 22:29:00* Test Item Value Reference Range Interpretation Comme nts AB HIV 1 2 (test code = GLI44OB) NONREACTIVE NONREACTIVE Done by [employer] 4[employer] Gen HIV Ag/Ab Combo Screen COMPREHENSIVE METABOLIC [id number] 16:05:00* Test Item Value Reference Range Interpretation [...] 92.8 >60 Unit of m easure: mL/min/1.73 a9Vdcundsxu Range:Healthy Adults >90 mL/min/1.73 m2 For Chronic [...] = ALKP) 78 U/L 46-116 N PROTHROMBIN [id number] 16:05:00* Test Item Value Reference Range Interpretation [...] intravascular valves IS PATIENT ON ANTICOAGULANTS ? NVas Lab been notified if Patient is on Heparin Drip? NOTHROMBOPLASTIN TIME [id number] 16:05:00* Test Item Value Reference Range Interpretation Comme nts PTT ACTIVATED (test code = APTT) 36.6 secs 24.9-37.0 N IS PATIENT ON ANTICOAGULANTS ? NHas Lab been notified if Patient is on Heparin Drip? NOCBC W/AUTO [id number] 15:49:00* Test Item Value Reference Range Interpretation [...] N - USG NDL PLACEMENT (Bxg/Asp)2020-09-11 13:31:00 [facility] : 1955 Sex: F Patient Name: INDIRA SUAREZ Unit No: [id number] EXAMS: CPT CODE: [id number] USG NDL PLACEMENT (Bxg/Asp) 75829 INDICATION: Left knee pain. PROCEDURE: Ultrasound guided cryoneurolysis (Iovera) of the left anterior femoral cutaneous nerve, medial femoral cutaneous nerve, and the superior and inferior branches of the infrapatellar branch of the saphenous nerve. MULTILITH OPERATOR: Dr. Kwon. MEDICATIONS: 1 % Lidocaine local [...] Reported and signed by: Raheel Kwon M.D. [facility] NAME: INDIRA SUAREZ [facility] PHYS: BELIA Alvares Jadiel Ahmadi Yobany : 1955 AGE: 64 SEX: F [place] [address] LOC: Y.RAD PHONE #: [phone] EXAM DATE: 09/11/2020 STATUS: REG CLI FAX #: [phone] RAD #: D/C DT PAGE 1 Signed Report (CONTINUED) Patient Name: INDIRA SUAREZ Unit No: [id number] EXAMS: CPT CODE: [id number] USG NDL PLACEMENT (Bxg/Asp) 54977 (Continued) CC: Jadiel Ahmadi MD Technologist: HOWIE PINEDA RDMS, RVT Transcribed D/ (1331) Chelsey [facility] NAME: INDIRA SUAREZ [facility] PHYS: BELIA Alvares Jadiel Ahmadi Yobany : 1955 AGE: 64 SEX: F [place] [address] LOC: Y.RAD PHONE #: [phone] EXAM DATE: 09/11/2020 STATUS: REG CLI FAX #: [phone] RAD #: D/C DT PAGE 2 Signed Report Patient Name: INDIRA SUAREZ Unit No: [id number] EXAMS: CPT CODE: [id number] USG NDL PLACEMENT (Bxg/Asp) 55340 (Continued) Orig Print D/T: S: 09/11/2020 (1335) [facility] NAME: INDIRA SUAREZ [address] [place] [address] PHYS: BELIA Alvares Jadiel Ahmadi Yobany : 1955 AGE: 64 SEX: F [place] [address] LOC: JOSHUA PHONE #: [phone] EXAM DATE: 09/11/2020 STATUS: LETY CLI FAX #: [phone] RAD #: D/C DT PAGE 3 Signed Report Notes Date/Time Note Provider Source 2020-09-29 17:38:00 [id number] [facility] [address] [place] [address] PATIENT NAME: INDIRA SUAREZ ADMIT DATE: 09/18/20 ACCOUNT NO: [id number] ROOM NO: Y.523 AGE: 64 REPORT TYPE: DISCHARGE SUMMARY REPORT SEX: F ADMITTING PHYSICIAN:Jadiel Ahmadi MD ATTENDING PHYSICIAN:Jadiel Ahmadi MD ADMISSION DATE: 09/18/2020 DISCHARGE DATE: 09/22/2020 CHIEF COMPLAINT ON ADMISSION: Left knee pain. ADMISSION DIAGNOSES: Left knee end stage degenerative joint disease and obesity. DISCHARGE DIAGNOSES: Left knee end stage degenerative joint disease and obesity. PROCEDURE: Complex left total knee arthroplasty. HOSPITAL COURSE: The patient underwent the procedure without incident. The patient was hemodynamically and medically monitored during the postoperative period. The patient was anticoagulated with institution of postoperative DVT prophylaxis. The patient was progressively able to tolerate p.o. pain medications and a regular diet. Physical therapy was instituted, with a progressive ability to ambulate and perform exercises. DISCHARGE PHYSICAL EXAMINATION: HEAD, EYES, EARS, NOSE, AND THROAT: Within normal limits. NECK: No adenopathy/Jugular venous distention. LUNGS: Clear to auscultation. CARDIOVASCULAR: No rate changes, no new murmur. ABDOMEN: Soft, NT/ND, normal bowel sounds. EXTREMITIES: Wound clean, dry, intact; calves soft and nontender. Negative Kishan's sign bilaterally. NEUROLOGIC AND VASCULAR: Within normal limits and without change. DISCHARGE STATUS: Stable. DISCHARGE PLAN: 1. Disposition: Discharged to home /rehab center. 2. Wound: Continue dressing changes until dry. Instructions given to the patient. 3. Pain Medications: As per discharge prescription, with progressive weaning as pain decreases. 4. Physical Therapy: Will undergo PT as necessary for gait training, mobilization, aziko-ws-sdozqk, and strengthening. 5. Weightbearing: As per physical therapy instructions in hospital. 6. Anticoagulation: As per discharge prescription. PATIENT NAME: INDIRA SUAREZ 7. Followup Appointment: Will follow up with Dr. Ahmadi in 2 weeks. Dictated By: Jadiel Ahmadi MD WT: DS:MARY/LAZARA. Conf#: [id number]/DID#: [id number] Authenticated by Jadiel Ahmadi MD On 10/02/2020 05:00:16 PM at 1700 PATIENT NAME: INDIRA SUAREZ [facility] 2020-09-22 09:28:00 [facility]) Clinical Note REPORT#:[id number] REPORT STATUS: Signed DATE:09/22/20 TIME: 927 PATIENT: INDIRA SUAREZ UNIT #: [id number] ROOM/BED: [address] : [birth year] AGE: 64 SEX: F ATTEND: Jadiel Ahmadi MD ADM AUTHOR: Eloy Hartmann MD * ALL edits or amendments must be made on the electronic/computer document * Clinical Note Note: [facility] Eloy Huffman M.D. (cell text [phone]) Assessment/Plan 1.) Anemia of acute blood loss- .asymptomatic. 2.) S/p Left TKA- .acute multi-modal pain control and followup. Anticoagulation as per Dr. Ahmadi. 3.) Ileus Spasms- .resolving, multiple BMs overnight. Potassium borderline low, will give some po KCL. 4.) OsteoArthritis FLAVIO- .continue on Rx. CPAP 5.) Hypertension- .follow BP and hold Rxs if SBP<120. * OK for DISCHARGE per Internal Medicine. Prior Events/Overnight: Brief sudden episode of muscloskeletal chest pain last PM. Chief Complaint: No significant complaints. Objective Vital Signs Date Temp Pulse Resp B/P B/P Mean Pulse Ox FiO2 09/21-09/22 98.4-99.0 73-93 14-16 122-158/74-92 89.8-112.7 96-100 Gen: Alert, oriented, in mild discomfort Neck: No Masses, No Thyromegaly- CV: Regular Rate Rhythm / Edema- no significant Resp: Clear To Ascultation / Normal Respiratory Effort ABD: NonTender / NonDistended MS/Skin: No sign of compartment syndrome / +ankle DF/PF / nl capillary refill of toes Other: overall feeling much better Labs/X-ray: Laboratory Tests: [...] % (Auto) (20 - 40 %) 21.4 Mobile % (Auto) (3 - 10 %) 9.9 Eos % (Auto) (1 - 5 %) 2.1 Baso % (Auto) (0.0 - 1.1 %) 0.5 Neut # (Auto) (2.00 - 7.50 K/mm3) 4.07 Lymph # (Auto) (1.50 - 4.00 K/mm3) 1.32 L Mobile # (Auto) (0.2 - 0.8 K/mm3) 0.61 Eos # (Auto) (0.04 - 0.4 K/mm3) 0.13 Baso # (Auto) (0.02 - 0.10 K/mm3) 0.03 Add Manual Diff (MANUAL DIFF) NO Nucleated RBC % (0 - 0 %) 0 Recent Impressions: RADIOLOGY - XR ABDOMEN 1 V 09/21 1610 Report Impression - Status: SIGNED Entered: 09/21/20201615 IMPRESSION: Findings suggestive of adynamic ileus. Impression By: Vanita Romero M.D. at 1044 RPT #:[id number] END OF REPORT [facility] 2020-09-21 20:28:00 [facility]) Orthopaedic Progress Note REPORT#:[id number] REPORT STATUS: Signed DATE:09/21/20 TIME: 2027 PATIENT: INDIRA SUAREZ UNIT #: [id number] ROOM/BED: [address] : 53 AGE: 64 SEX: F ATTEND: Jadiel Ahmadi MD ADM AUTHOR: Racheal White NP * ALL edits or amendments must be made on the electronic/computer document * Diagnosis, Assessment Plan Free text A P: C/O constipation. Pain mild-moderate. No Shortness of breath or chest symptoms. Afebrile VSS Alert, oriented, no acute distress Wound clean and dry. No significant drainage. Neurologic and vascular systems intact distally. (-) Kishan s (-) Calf tenderness Laboratory Tests: 09/21 1820 Chemistry Sodium (136 - [...] % (Auto) (20 - 40 %) 21.4 Mobile % (Auto) (3 - 10 %) 9.9 Eos % (Auto) (1 - 5 %) 2.1 Baso % (Auto) (0.0 - 1.1 %) 0.5 Neut # (Auto) (2.00 - 7.50 K/mm3) 4.07 Lymph # (Auto) (1.50 - 4.00 K/mm3) 1.32 L Mobile # (Auto) (0.2 - 0.8 K/mm3) 0.61 [...] to monitor 5)Discharge planning at 2030 RPT #:[id number] END OF REPORT [facility] 2020-09-21 20:28:00 [facility]) Orthopaedic Progress Note REPORT#:[id number] REPORT STATUS: Signed DATE:09/21/20 TIME: 2027 PATIENT: INDIRA SUAREZ UNIT #: [id number] ROOM/BED: [address] : 53 AGE: 64 SEX: F ATTEND: Jadiel Ahmadi MD ADM AUTHOR: Racheal White NP * ALL edits or amendments must be made on the electronic/computer document * Diagnosis, Assessment Plan Free text A P: C/O constipation. Pain mild-moderate. No Shortness of breath or chest symptoms. Afebrile VSS Alert, oriented, no acute distress Wound clean and dry. No significant drainage. Neurologic and vascular systems intact distally. (-) Kishan s (-) Calf tenderness Laboratory Tests: 09/21 1820 Chemistry Sodium (136 - [...] % (Auto) (20 - 40 %) 21.4 Mobile % (Auto) (3 - 10 %) 9.9 Eos % (Auto) (1 - 5 %) 2.1 Baso % (Auto) (0.0 - 1.1 %) 0.5 Neut # (Auto) (2.00 - 7.50 K/mm3) 4.07 Lymph # (Auto) (1.50 - 4.00 K/mm3) 1.32 L Mobile # (Auto) (0.2 - 0.8 K/mm3) 0.61 [...] 5)Discharge planning at 2030 at 1055 RPT #:[id number] END OF REPORT [facility] 2020-09-21 18:21:00 [id number] [place] [address] PATIENT NAME: INDIRA SUAREZ ADMIT DATE: 09/18/20 ACCOUNT NO: [id number] ROOM NO: Y.523 AGE: 64 REPORT TYPE: ELECTROCARDIOGRAM SEX: F ADMITTING PHYSICIAN:Jadiel Ahmadi MD ATTENDING PHYSICIAN:Jadiel Ahmadi MD Order: [id number] Test Reason : CHEST PAIN Test Date/Time Stamp: FriSep 21 2020 18:21:39 Blood Pressure : / mmHG Vent. Rate : 082 BPM Atrial Rate : 082 BPM P-R Int : 148 ms QRS Dur : 098 ms QT Int : 392 ms P-R-T Axes : 038 030 010 degrees QTc Int : 457 ms Normal sinus rhythm Nonspecific ST abnormality Abnormal ECG Confirmed by BIGG FUENTES MD ([id number]) on 09/24/2020 3:53:31 PM Referred By: Jadiel Ahmadi Confirmed by:BIGG FUENTES MD at 1553 PATIENT NAME: INDIRA SUAREZ [facility] 2020-09-21 16:40:00 [facility] Clinical Note REPORT#:[id number] REPORT STATUS: Signed DATE:09/21/20 TIME: 1640 PATIENT: INDIRA SUAREZ UNIT #: [id number] ROOM/BED: [address] : 53 AGE: 64 SEX: F ATTEND: Jadiel Ahmadi MD ADM AUTHOR: Eloy Hartmann MD * ALL edits or amendments must be made on the electronic/computer document * Clinical Note Note: [facility] Eloy Huffman MD (cell text [phone]) Internal Medicine Consult at request of : Dr. Jadiel Ahmadi Chief Complaint: left knee pain HPI: 64yo F is now s/p Left Total Knee Arthroplasty (TKA) by Dr. Ahmadi on . Ms. Suarez relates 2 years of progressive left knee pain (recently severe , 6-8/10), worse with activity, and popping crunchy with restricted motion at times in quality. She has failed conservative management. Ms. Suarez reports nausea and vomiting x2 days unresolved by Zofran. She denies abdominal pain. Her last bowel movement was prior to surgery. She has received mag citrate and duculax po. Abdominal x-ray reveals adynamic ileus. Comorbidities: see below. PmHx: . Hypertension, anxiety, sleep apnea, hernia, irregular heartbeat ALLERGY: Allergies: bee venom protein (honey bee) (Coded, Severe, EXTREME SWELLING, 09/11/20) butorphanol (From STADOL) (Coded, Severe, AFFECTS BREATHING, 09/11/20) codeine (Coded, Severe, HEADACHE, 09/11/20) meperidine (From DEMEROL) (Coded, Severe, BEHAVIOR CHANGE, 09/11/20) peanut (Coded, Severe, ITCHY THROAR/WHEEZING, 09/11/20) shellfish derived (Coded, Severe, THROAT ITCHING/WHEEZING, 09/11/20) Sulfa (Sulfonamide Antibiotics) (Coded, Intermediate, VOMITING, 09/11/20) epinephrine (Coded, Intermediate, HEART RACING, 09/11/20) oxytetracycline (From TERRAMYCIN) (Coded, Intermediate, VOMITING, 09/11/20) pentazocine (From TALWIN) (Coded, Intermediate, VOMITING, 09/11/20) promethazine (From PHENERGAN) (Coded, Intermediate, VOMITING/HEADACHE, 09/11/20) propoxyphene (From DARVON) (Coded, Intermediate, VOMITING, 09/11/20) Home Medications: Home Medications: METOPROLOL SUCC XL (TOPROL XL) 50 MG PO BEDTIME CHOLECALCIFEROL (VITAMIN D3) (VITAMIN D3) 2,000 UNITS PO DAILY ASCORBIC ACID (VITAMIN C) 1,000 MG PO DAILY ZINC GLUCONATE 50 MG PO DAILY clonazePAM (KlonoPIN) 0.5 MG PO DAILY PRN SUCRALFATE (CARAFATE) 1 GM PO AC SgHx: .Cholecystectomy, , bilateral feet, bilateral breast lumpectomy, appendectomy SHx: Tob: none FHx: .No significant hx of DVT/PE. Alcohol: 1none Drugs: none Lives: with spouse Vitals: Vital Signs Date Temp Pulse Resp B/P B/P Mean Pulse Ox FiO2 09/20-09/21 96.4-98.6 79-98 14-16 103-145/62-92 76.6-109.5 95-100 21-32 Gen: Alert, in mild discomfort, nl nutrition. EYE: Nl lids conjunctiva. ENT: Nl ears Nose, nl lips,. Neck: Supple, nl thyroid, No masses. CV: Regular Rate Rhythm, no heave or significant murmur. Edema- none RESP: Clear to Auscultation, normal Respiratory effort. ABD: Soft, NonDistended, no masses, bowel sounds heard. LYM: No significant cervical Lymphadenopathy. MS: No sign of compartment syndrome, NEURO: Nonfocal, grossly normal sensation of LE, +Ankle DF/PF . Preop Labs (09/11/20): CBC:. Hgb 11.2, Plt 280, CHEM: Na 142, K 4.0, Cr 0.64 (eGFR 92.8%), EKG: NSR. [facility] Lab xray 09/21/20: Recent Impressions: RADIOLOGY - XR ABDOMEN 1 V 09/21 1610 Report Impression - Status: SIGNED Entered: 09/21/2020 1616 IMPRESSION: Findings suggestive of adynamic ileus. Impression By: Chelsey - Raheel Kwon M.D. (medium to high risk of complications or morbidity) (major surgery) (IV sedative, meds) Assessment Plan 1.) Anemia of Acute Blood Loss- .asymptomatic. 2.) S/p Left TKA- .acute multi-modal pain control and followup. Anticoagulation as per Dr. Ahmadi. 3.) Ileus- .patient just had a large BM (after enema), xrays and clinical exam consistent with ileus (no significant pain, no sign of obstruction). Encouraged ambulation. 4.) OsteoArthritis FLAVIO- .continue on Rx. CPAP 5.) Hypertension- .follow BP and hold Rxs if SBP<120. Eloy Huffman M.D. Thanks! G8427 - current medications obtained and reviewed. G8730 - pain assessment with tool and followup plan [id number] - offered discussion on advanced care plan and patient declined to address issue at this time. at 2230 RPT #:[id number] [facility]00 [facility]) Orthopaedic Progress Note REPORT#:[id number] REPORT STATUS: Signed DATE:09/21/20 TIME: 807 PATIENT: INDIRA SUAREZ UNIT #: [id number] ROOM/BED: [address] : 53 AGE: 64 SEX: F ATTEND: Jadiel Ahmadi MD ADM AUTHOR: Racheal White NP * ALL edits or amendments must be made on the electronic/computer document * Objective VS: Last Documented: Result Date Time Pulse Ox 95 09/21 0701 B/P 117/78 09/21 0701 B/P Mean 90.9 09/21 0701 O2 Delivery Room air 09/21 07 Temp 37.0 09/21 07 Pulse 82 09/21 0701 Resp 14 09/21 0701 FiO2 32 09/21 0330 O2 Flow Rate 3 09/21 0330 PATIENT WEIGHT: Weight (lb): 272 Weight (oz): 7.86 Weight (kg): 123.377 Diagnosis, Assessment Plan Hospital course to date: Comfortable. Pain mild-moderate. No Shortness of breath or chest symptoms. Afebrile VSS Alert, oriented, no acute distress Wound clean and dry. No significant drainage. Neurologic and vascular systems intact distally. (-) Kishan s (-) Calf tenderness Vital Signs: Date Time Temp Pulse Resp [...] 3)Following labs 4)Discharge planning Free text A P: Comfortable. Pain mild-moderate. No Shortness of breath or chest symptoms. Afebrile VSS Alert, oriented, no acute distress Wound clean and dry. No significant drainage. Neurologic and vascular systems intact distally. (-) Kishan s (-) Calf tenderness Laboratory Tests: 09/19 035 Hematology Hgb (12 - 16 g/dL) 9.7 L Hct (37 - 47 %) 29.1 L Vital Signs: Date Time Temp Pulse Resp B/P B/P Pulse O2 O2 Flow FiO2 Mean Ox Delivery Rate 09/21 0701 37.0 82 14 117/78 90.9 95 Room air 09/21 0333 35.8 98 16 103/63 76.6 100 / 0330 79 98 3 32 09/21 0330 [...] work with PT due to severe nausea. We changed her pain medications and will f/u tomorrow 3)Following labs 4)Discharge planning at 0809 at 1055 RPT #:[id number] END OF REPORT [facility] 2020-09-21 08:08:00 [facility] ([facility]) Orthopaedic Progress Note REPORT#:[id number] REPORT STATUS: Signed DATE:09/21/20 TIME: 08 PATIENT: INDIRA SUAREZ UNIT #: [id number] ROOM/BED: [address] : 53 AGE: 64 SEX: F ATTEND: Jadiel Ahmadi MD ADM AUTHOR: Racheal White NP * ALL edits or amendments must be made on the electronic/computer document * Objective VS: Last Documented: Result Date Time Pulse Ox 95 09/21 0701 B/P 117/78 09/21 0701 B/P Mean 90.9 09/21 0701 O2 Delivery Room air 09/21 07 Temp 37.0 09/21 07 Pulse 82 09/21 0701 Resp 14 09/21 0701 FiO2 32 09/21 0330 O2 Flow Rate 3 09/21 0330 PATIENT WEIGHT: Weight (lb): 272 Weight (oz): 7.86 Weight (kg): 123.377 Diagnosis, Assessment Plan Hospital course to date: Comfortable. Pain mild-moderate. No Shortness of breath or chest symptoms. Afebrile VSS Alert, oriented, no acute distress Wound clean and dry. No significant drainage. Neurologic and vascular systems intact distally. (-) Kishan s (-) Calf tenderness Vital Signs: Date Time Temp Pulse Resp [...] 3)Following labs 4)Discharge planning Free text A P: Comfortable. Pain mild-moderate. No Shortness of breath or chest symptoms. Afebrile VSS Alert, oriented, no acute distress Wound clean and dry. No significant drainage. Neurologic and vascular systems intact distally. (-) Kishan s (-) Calf tenderness Laboratory Tests: 09/20 355 Hematology Hgb (12 - 16 g/dL) 9.7 [...] 09/205 37.0 80 16 110/68 82.1 99 05/19 2148 97 Room air 21 05/19 2000 Room air 09/20 1900 36.6 82 16 112/62 78.6 98 09/20 1525 37.1 98 14 115/72 86.4 100 Nasal cannula 09/20 112 36.7 71 14 133/80 97.8 100 CPAP A/P: s/p Joint Arthroplasty 1)Anticoagulation instituted 2)PT progressing: patient was unable to work with PT due to severe nausea. We changed her pain medications and will f/u tomorrow 3)Following labs 4)Discharge planning at 0809 RPT #:[id number] END OF REPORT [facility] 2020-09-21 08:06:00 [facility] Orthopaedic Progress Note REPORT#:[id number] REPORT STATUS: Signed DATE:09/21/20 TIME: 0806 PATIENT: INDIRA SUAREZ UNIT #: [id number] ROOM/BED: [address] : 53 AGE: 64 SEX: F ATTEND: Jadiel Ahmadi MD ADM AUTHOR: Racheal White NP * ALL edits or amendments must be made on the electronic/computer document * Diagnosis, Assessment Plan Hospital course to date: Comfortable. Pain mild-moderate. No Shortness of breath or chest symptoms. Afebrile VSS Alert, oriented, no acute distress Wound clean and dry. No significant drainage. Neurologic and vascular systems intact distally. (-) Kishan s (-) Calf tenderness Vital Signs: Date Time Temp Pulse Resp [...] 97 Room air 09/20 Room air 09/20 1900 36.6 82 16 112/62 78.6 98 09/20 1525 37.1 98 14 115/72 86.4 100 Nasal cannula 09/20 1127 36.7 71 14 133/80 97.8 100 CPAP A/P: s/p Joint Arthroplasty 1)Anticoagulation instituted 2)PT progressing 3)Following labs 4)Discharge planning Free text A P: Comfortable. Pain mild-moderate. No Shortness of breath or chest symptoms. Afebrile VSS Alert, oriented, no acute distress Wound clean and dry. No significant drainage. Neurologic and vascular systems intact distally. (-) Kishan s (-) Calf tenderness Laboratory Tests: 09/19 0356 Hematology Hgb (12 - 16 g/dL) 9.7 L Hct (37 - 47 %) 29.1 L A/P: s/p Joint Arthroplasty 1)Anticoagulation instituted 2)PT progressing: patient was unable to work with PT due to severe nausea. We changed her pain medications and will f/u tomorrow 3)Following labs 4)Discharge planning at 0808 at 1055 RPT #:[id number] END OF REPORT [facility] 2020-09-21 08:06:00 [facility] ([facility]) Orthopaedic Progress Note REPORT#:[id number] REPORT STATUS: Signed DATE:09/21/20 TIME: 805 PATIENT: INDIRA SUAREZ UNIT #: [id number] ROOM/BED: [address] : 53 AGE: 64 SEX: F ATTEND: Jadiel Ahmadi MD ADM AUTHOR: Racheal White NP * ALL edits or amendments must be made on the electronic/computer document * Diagnosis, Assessment Plan Hospital course to date: Comfortable. Pain mild-moderate. No Shortness of breath or chest symptoms. Afebrile VSS Alert, oriented, no acute distress Wound clean and dry. No significant drainage. Neurologic and vascular systems intact distally. (-) Kishan s (-) Calf tenderness Vital Signs: Date Time Temp Pulse Resp B/P B/P Pulse O2 O2 Flow FiO2 Mean Ox Delivery Rate 09/21 0701 37.0 82 14 117/78 90.9 95 Room air 09/21 0333 35.8 98 16 103/63 76.6 100 09/21 0330 79 98 3 32 09/21 0330 98 CPAP 3 32 09/20 2215 37.0 80 16 110/68 82.1 99 09/20 2148 97 Room air 21 09/21 1999 Room air 09/20 1901 36.6 82 16 112/62 78.6 98 09/20 1525 37.1 98 14 115/72 86.4 100 Nasal cannula 09/20 1127 36.7 71 14 133/80 97.8 100 CPAP A/P: s/p Joint Arthroplasty 1)Anticoagulation instituted 2)PT progressing 3)Following labs 4)Discharge planning Free text A P: Comfortable. Pain mild-moderate. No Shortness of breath or chest symptoms. Afebrile VSS Alert, oriented, no acute distress Wound clean and dry. No significant drainage. Neurologic and vascular systems intact distally. (-) Kishan s (-) Calf tenderness Laboratory Tests: 09/19 0356 Hematology Hgb (12 - 16 g/dL) 9.7 L Hct (37 - 47 %) 29.1 L A/P: s/p Joint Arthroplasty 1)Anticoagulation instituted 2)PT progressing: patient was unable to work with PT due to severe nausea. We changed her pain medications and will f/u tomorrow 3)Following labs 4)Discharge planning at 0808 RPT #:[id number] END OF REPORT [facility] 2020-09-21 08:04:00 [facility] ([facility]) Orthopaedic Progress Note REPORT#:[id number] REPORT STATUS: Signed DATE:09/21/20 TIME: 0804 PATIENT: INDIRA SUAREZ UNIT #: [id number] [facility] AGE: 64 SEX: F ATTEND: Jadiel Ahmadi MD ADM AUTHOR: Racheal White NP * ALL edits or amendments must be made on the electronic/computer document * Diagnosis, Assessment Plan Free text A P: Comfortable. Pain mild-moderate. No Shortness of breath or chest symptoms. Afebrile VSS Alert, oriented, no acute distress Wound clean and dry. No significant drainage. Neurologic and vascular systems intact distally. (-) Kishan s (-) Calf tenderness A/P: s/p Joint Arthroplasty 1)Anticoagulation instituted 2)PT progressing: patient was unable to work with PT due to severe nausea. We changed her pain medications and will f/u tomorrow 3)Following labs 4)Discharge planning at 0805 at 1055 RPT #:[id number] END OF REPORT [facility] 2020-09-21 08:04:00 [facility]) Orthopaedic Progress Note REPORT#:[id number] REPORT STATUS: Signed DATE:09/21/20 TIME: 803 PATIENT: INDIRA SUAREZ UNIT #: [id number] ROOM/BED: [address] : 53 AGE: 64 SEX: F ATTEND: Jadiel Ahmadi MD ADM AUTHOR: Racheal White NP * ALL edits or amendments must be made on the electronic/computer document * Diagnosis, Assessment Plan Free text A P: Comfortable. Pain mild-moderate. No Shortness of breath or chest symptoms. Afebrile VSS Alert, oriented, no acute distress Wound clean and dry. No significant drainage. Neurologic and vascular systems intact distally. (-) Kishan s (-) Calf tenderness A/P: s/p Joint Arthroplasty 1)Anticoagulation instituted 2)PT progressing: patient was unable to work with PT due to severe nausea. We changed her pain medications and will f/u tomorrow 3)Following labs 4)Discharge planning at 0805 RPT #:[id number] END OF REPORT [facility] 2020-09-19 07:30:00 [facility] ([facility]) Pain Management Progress Note REPORT#:[id number] REPORT STATUS: Signed DATE:09/19/20 TIME: 729 PATIENT: INDIRA SUAREZ UNIT #: [id number] ROOM/BED: [address] : 53 AGE: 64 SEX: F ATTEND: Jadile Ahmadi MD ADM AUTHOR: Magdalene Lane * ALL edits or amendments must be made on the electronic/computer document * Subjective Chief Complaint: L KNEE PAIN S/P TKA Comments: Last Documented: Result Date Time Pulse Ox 97 09/19 0654 B/P 146/82 09/19 0654 B/P Mean 103.2 09/19 0654 O2 Delivery Room air 09/19 0654 Temp 37.0 09/19 0654 Pulse 66 09/19 [...] FOLLOW UP at 0737 at 0913 RPT #:[id number] END OF REPORT [facility] 2020-09-19 07:30:00 [facility] ([facility]) Pain Management Progress Note REPORT#:[id number] REPORT STATUS: Signed DATE:09/19/20 TIME: 729 PATIENT: INDIRA SUAREZ UNIT #: [id number] ROOM/BED: [facility] : 53 AGE: 64 SEX: F ATTEND: Jadiel Ahmadi MD ADM AUTHOR: Magdalene Lane [employer] * ALL edits or amendments must be made on the electronic/computer document * Subjective Chief Complaint: L KNEE PAIN S/P TKA Comments: Last Documented: Result Date Time Pulse Ox 97 09/19 0654 B/P 146/82 09/19 0654 B/P Mean 103.2 09/19 0554 O2 Delivery Room air 09/19 0554 Temp 37.0 09/19 0654 Pulse 66 09/19 [...] LLE. Plan: BLOCK FOLLOW UP at 0737 [facility] [email or web address]] #:[id number] END OF REPORT [facility] 2020-09-18 14:46:00 [id number] [place] [address] PATIENT NAME: INDIRA SUAREZ ADMIT DATE: 09/18/20 ACCOUNT NO: [id number] ROOM NO: Y.523 AGE: 64 REPORT TYPE: OPERATIVE REPORT SEX: F ADMITTING PHYSICIAN:Jadiel Ahmadi MD ATTENDING PHYSICIAN:Jadiel Ahmadi MD OPERATION DATE: 09/18/2020 SURGEON: Jadiel Ahmadi MD RECYCLING OPERATIONS MANAGER: Rachana Sigala PA-C. PREOPERATIVE DIAGNOSES: 1. Left knee end-stage degenerative disease. 2. Obesity. POSTOPERATIVE DIAGNOSES: 1. Left knee end-stage degenerative disease. 2. Obesity. PROCEDURE: Complex left total knee arthroplasty. ANESTHESIA: COMPONENTS USED: [employer]ley [employer] Legion posterior stabilized Oxinium femoral component, size 7, Didi II left nonporous tibial baseplate, size 5 and 32-mm oval Didi II resurfacing patellar component, and a size 5-6, 3-4, 15-mm Legion PS XLPE high flexion articular insert. FINDINGS: End-stage degenerative disease of the left knee with complete joint space loss, osteophyte formation, subchondral sclerosis, and bone on bone changes. ESTIMATED BLOOD LOSS: 50 mL. REASONING FOR COMPLEX CASE MODIFIER: This patient had a body mass index approaching 40. The extremity was massive. This created an altered surgical field. The surgery itself (including positioning requiring several people so we would not hurt ourselves, extensile exposure, difficult retraction and maintenance of leg position, prolonged multi-layered closure), as well as the effort and skill level required by myself and my safety admin assistant was greater than two times the usual amount required for an arthroplasty. Because of this altered surgical field, a 22-modifier was used while coding for this procedure. PROCEDURE IN DETAIL: The patient was brought to the operating room and placed in supine position. After the induction of anesthesia, a left lower extremity upper thigh tourniquet was placed. This required the help of several people to retract thigh pannus distally and abdominal pannus proximally so the tourniquet PATIENT NAME: INDIRA SUAREZ could be applied. In addition, the absolute weight of this leg was so huge that it required a couple of people to hold it up, so that we could sterilely prep and drape properly. Tourniquet was inflated. Incision was made centered over the patient's anterior knee. Dissection was sharply carried down through the subcutaneous tissues and a median parapatellar VMO splitting arthrotomy was performed. Medial side of the knee was released and the knee was flexed up. This required significant effort by my safety admin assistant and myself because the patient's first had a massive extremity that she literally had to hug to hold in position so that I had a stable extremity to operate on, so that she could provide exposure. The patella baja also made things quite difficult and releasing had to be performed around the tibia in order to get this subluxated laterally. The patella subluxated laterally safely. Menisci were resected and ACL and PCL were resected as were osteophytes. A proximal tibial cut was made. Its alignment was checked and found to be excellent. The distal femoral cut was then completed and the knee was balanced in extension. The knee was then flexed up again, with significant struggles to try to hold this massive extremity position with exposure. Femoral component sizing and rotation were set, balancing the flexion and extension gaps and the femoral cuts were completed and the tibial keel was punched. The trial components were placed. The knee was found to have excellent symmetric stability in the medial, lateral, and anterior-posterior directions, both in flexion and extension as well as excellent range of motion. The patella was everted and the patellar cut was made checking symmetry and thickness with calipers and the 3 lug holes were drilled and trial patellar components found to have excellent tracking. The trials were removed. Thorough irrigation was performed. All the cut surfaces were thoroughly washed and dried and cement was mixed. The cement was coated on the cut surface and pressurized and coated on the components. The components were impacted in position, the knee was brought into full extension with trial polyethylene. Excess cement was removed from the edges of components before it hardened. The patellar clamp was used for patellar component. Once cement had hardened, tourniquet was deflated. Adequate hemostasis obtained. Thorough irrigation was performed and the final polyethylene was placed into position. Range of motion, stability, and patellar tracking once again found to be excellent. The arthrotomy was closed using Quill suture, subcutaneous tissue was closed using Vicryl suture, and subcuticular stitch was used for skin, followed by Dermabond and sterile dressing. The patient was awakened and transferred to recovery room in stable condition having tolerated the procedure well. Dictated By: Jadiel Ahmadi MD WT: OP:MARY// Conf#: [id number]#: [id number] PATIENT NAME: INDIRA SUAREZ Authenticated and Edited by Jadiel Ahmadi MD On 09/20/20 3:37:36 PM at 1539 PATIENT NAME: INDIRA SUAREZ [facility] 2020-09-18 10:49:00 [facility] ([facility]) Op/Inv Procedure Note - Brief REPORT#:[id number] REPORT STATUS: Signed DATE:09/18/20 TIME: 1049 PATIENT: INDIRA SUAREZ UNIT #: [id number] ROOM/BED: Y998-23 : 53 AGE: 64 SEX: F ATTEND: Jadiel Ahmadi MD ADM AUTHOR: Jadiel Ahmadi MD * ALL edits or amendments must be made on the electronic/computer document * Op/Inv Proc Note - Brief TEXT Brief Op/Inv Procedure Note Note details: Pre-procedure diagnosis: Left Knee Degenerative Joint Disease Post-procedure diagnosis: Same Procedures performed: Left Total Knee Arthroplasty Primary Surgeon: BRISA Landman: [Nirali SIGALA PA-C] Findings: Severe degenerative disease see dictated operative report for details Complications: None Estimated Blood Loss in ml s: [5-] at 1432 RPT #:[id number] END OF REPORT [facility] 2020-09-11 14:03:00 [id number] [place] [address] PATIENT NAME: INDIRA SUAREZ ADMIT DATE: ACCOUNT NO: [id number] ROOM NO: AGE: 64 REPORT TYPE: ELECTROCARDIOGRAM SEX: F ADMITTING PHYSICIAN:Jadiel Ahmadi MD ATTENDING PHYSICIAN:Jadiel Ahamdi MD Order: [id number] Test Reason : PRE SURGERY Test Date/Time Stamp: FriSep 11 2020 14:03:19 Blood Pressure : / mmHG Vent. Rate : 061 BPM Atrial Rate : 061 BPM P-R Int : 150 ms QRS Dur : 100 ms QT Int : 420 ms P-R-T Axes : 049 071 060 degrees QTc Int : 422 ms Normal sinus rhythm Normal ECG No previous ECGs available Confirmed by BIGG FUENTES MD ([id number]) on 09/13/2020 7:39:22 PM Referred By: Jadiel Ahmadi Confirmed by:BIGG FUENTES MD at 1939 PATIENT NAME: INDIAR SUAREZ [facility]
[2024-08-22 10:48] LABS: Absolute Basophils 0.1 K/uL (0-0.5); Absolute Eosinophils 0.2 K/uL (0-0.5); Absolute Lymphocytes (CBC) 2.1 K/uL (0.7-4.9); Absolute Monocytes 0.6 K/uL (0.1-1.3); Absolute Neutrophil 2.7 K/uL (1.8-8.0); Basophils % 0.9 % (0-1.3); Eosinophils % 3.4 % (0-4.4); Hematocrit 40.4 % (36.0-45.0); Hemoglobin 13.7 g/dL (12.0-15.0); Lymphocytes % 37.7 % (15.3-44.8); MCH 29.5 pg (27.0-35.0); MCHC 33.9 g/dL (32.0-36.0); Monocytes % 10.7 % (3.3-12.3); Neutrophils % 47.3 % (41.7-73.7); Nucleated Red Blood Cells % 0.1 % (0-0); Platelets 357 thou/uL (152-406); RBC Red Blood Cell Count 4.64 M/uL (3.86-4.86); Red Cell Distribution Width 14.5 % (12.1-15.2)
[2024-08-22 11:09] LABS: Protime INR 1.06
--- NOTE | 2024-08-22 11:19 | RAD REPORT ---
Procedure: Chest Single View HISTORY: Chest pain COMPARISON: 2023 FINDINGS: The lungs appear clear of acute infiltrate. No significant pleural effusion noted. The heart is normal size. IMPRESSION: No acute abnormality is displayed.
[2024-08-22 11:28] LABS: ALT/SGPT 37 U/L (13-56); AST/SGOT 19 U/L (15-37); Albumin 4.2 g/dL (3.4-5.0); Alkaline Phosphatase 109 U/L (45-117); Anion Gap 9.9 mEq/L (5.0-15.0); BUN Blood Urea Nitrogen 13 mg/dL (7-18); Bicarbonate 26 mEq/L (21-32); Bilirubin Total 0.5 mg/dL (0.2-1.0); Globulin 4.1 g/dL (2.3-3.5); Glomerular Filtration Rate 87 ml/min (=/>90); Glucose Level 112 mg/dL (74-106); Magnesium 2.4 mg/dL (1.6-2.4); NT PRO-BNP 126 pg/mL (<125); Potassium 3.9 mEq/L (3.5-5.1); Protein, Total 8.3 g/dL (6.4-8.2); Sodium Level 138 mEq/L (136-145); Troponin High Sensitivity 3.6 pg/mL (<58.9)
[2024-08-22 11:37] LABS: Bilirubin Direct < 0.2 mg/dL (0-0.2); Bilirubin Indirect, Calculated 0.3 mg/dL (0.2-0.8)
--- NOTE | 2024-08-22 12:56 | RAD REPORT ---
EXAM:Thorax Wo Con CLINICAL INDICATION: Chest pain TECHNIQUE: CT chest performed.. Axial, sagittal and coronal reconstructions were obtained. One or mor e of the following dose reduction techniques were used: Automated exposure control, adjustment of the mA and/or kV according to the patient size, and/or iterative reconstruction. Unless otherwise specified, incidental findings do not require dedicated imaging follow-up. [id number]. COMPARISON: None FINDINGS: Evaluation of the mediastinum, eliot and vessels is limited secondary to lack of IV contrast administr ation. 3 mm nodule unchanged from a CT abdomen 2020 is benign. The right lung is clear. No mediastinal or hilar lymphadenopathy No pleural effusion. No pericardial effusion Fatty liver IMPRESSION: No acute abnormalities displayed
--- NOTE | 2024-08-22 13:44 | ER ---
Nurse's Notes [facility] Name: Alessandra Suarez Age: 68 yrs Sex: Female : 1955 Arrival Date: 08/22/2024 Time: 10:11 Bed 19 Private MD: Diagnosis: Chest pain, unspecified;Palpitations Presentation: 08/22 10:22 Chief complaint: Patient states: SOB with exertion, palpitations, belching a lot since ll1 yesterday. Coronavirus screen: Client denies travel out of the [place] in the last 14 days. difficulty breathing, shortness of breath. Ebola Screen: Patient denies travel to an Ebola-affected area in the 21 days before illness onset. Initial Sepsis Screen: Does the patient meet any 2 criteria? No. Patient's initial sepsis screen is negative. Does the patient have a suspected source of infection? No. Patient's initial sepsis screen is negative. Risk Assessment: Do you want to hurt yourself or someone else? Patient reports no desire to harm self or others. Onset of symptoms was August 21, 2024. 10:22 Method Of Arrival: Wheelchair ll1 10:22 Acuity: KRISTA 2 ll1 Triage Assessment: 10:24 General: Appears uncomfortable, Behavior is calm, cooperative, appropriate for age. ll1 Pain: Denies pain. Cardiovascular: Reports palpitations, shortness of breath. Respiratory: Reports shortness of breath on exertion Onset: The symptoms/episode began/occurred yesterday, the patient has moderate shortness of breath. Historical: - Allergies: 10:22 Codeine; ll1 10:22 Darvon; ll1 10:22 Demerol; ll1 10:22 Losartan; ll1 10:22 Phenergan; ll1 10:22 SHELLFISH; ll1 10:22 Stadol; ll1 10:22 Sulfa (Sulfonamide Antibiotics); ll1 10:22 Talwin; ll1 10:22 teramycin; ll1 10:22 Peanut; ll1 10:29 Bees; ll1 10:29 Nickel; ll1 10:29 Morphine; ll1 - PMHx: 10:22 Anxiety; Hypertension; ll1 - PSHx: 10:22 L knee replacement; ll1 - Immunization history:: Adult Immunizations up to date. - Infectious Disease History:: Denies. - Social history:: Smoking status: Patient denies any tobacco usage or history of. Screenin:34 [facility] ED Fall Risk Assessment (Adult) History of falling in the last 3 months, hb including since admission No falls in past 3 months (0 pts) Confusion or Disorientation No (0 pts) Intoxicated or Sedated No (0 pts) Impaired Gait No (0 pts) Mobility Assist Device Used No (0 pt) Altered Elimination No (0 pt) Score/Fall Risk Level 0 - 2 = Low Risk Oriented to surroundings, Maintained a safe environment, Educated pt \T\ family on fall prevention, incl call for assistance when getting out of bed. Abuse screen: Denies threats or abuse. Denies injuries from another. Nutritional screening: No deficits noted. Tuberculosis screening: No symptoms or risk factors identified. Assessment: 10:34 General: Appears in no apparent distress. Behavior is cooperative, anxious. Pain: hb Denies pain. Neuro: Level of Consciousness is awake, alert, obeys commands, Oriented to person, place, time, situation. Cardiovascular: Reports palpitations, shortness of breath, Patient's skin is warm and dry. Rhythm is irregular. Respiratory: Reports shortness of breath on exertion Trachea midline Respiratory effort is even, unlabored, Respiratory pattern is regular, symmetrical. GI: No signs and/or symptoms were reported involving the gastrointestinal system. : No signs and/or symptoms were reported regarding the genitourinary system. EENT: No signs and/or symptoms were reported regarding the EENT system. Derm: Skin is pink, warm \T\ dry. Musculoskeletal: No signs and/or symptoms reported regarding the musculoskeletal system. 12:01 Reassessment: Pt more SOB and c/o palpitations when ambulating to bathroom. Assisted hb back to room via wheelchair and placed back on monitor. VS WNL. Pt instructed to remain in stretcher until cleared by provider, pt verbalized understanding of instructions. NESTOR Mcmahon notified. 13:03 Reassessment: Patient appears in no apparent distress at this time. Patient and/or kj2 family updated on plan of care and expected duration. Pain level reassessed. Patient is alert, oriented x 3, equal unlabored respirations, skin warm/dry/pink. 16:30 Respiratory: Airway is patent Breath sounds are clear bilaterally. kj2 Vital Signs: 10:22 BP 156 / 83; Pulse 68; Resp 24; Pulse Ox 99% on R/A; ll1 10:28 Temp 98; Weight 129.27 kg; Height 5 ft. 10 in. ; ll1 12:02 BP 156 / 86; Pulse 74; Resp 19; Pulse Ox 100% on R/A; hb 13:03 BP 149 / 75; Pulse 70; Resp 18; Pulse Ox 98% on R/A; kj2 10:28 Body Mass Index 40.89 (129.27 kg, 177.8 cm) ll1 ED Course: 10:15 Patient arrived in ED. sj2 10:16 Arm band placed on Patient placed in an exam room, on a stretcher. ll1 10:17 Jaimie Hughes PA-C is PHCP. sb4 10:17 Grey Garcia MD is Attending Physician. sb4 10:24 Triage completed. ll1 10:30 Initial lab(s) drawn, by hi, sent to lab. Inserted saline lock: 20 gauge in left hb antecubital area, using aseptic technique. Blood collected. Flushed with 10 mL NS. 10:33 EKG done, by ED staff, reviewed by Jaimie Hughes PA-C. am7 10:34 Kathrin Sweeney, RN is Primary Nurse. hb 10:36 Patient has correct armband on for positive identification. Bed in low position. Call hb light in reach. Provided Education on: tests, result times. Client placed on continuous cardiac and pulse oximetry monitoring. NIBP monitoring applied. hall monitor on. Pulse ox on. NIBP on. 10:36 Basic Metabolic Panel Sent. hb 10:36 CBC with Diff Sent. hb 10:36 LFT's Sent. hb 10:36 Magnesium Sent. hb 10:36 NT PRO-BNP Sent. hb 10:36 PT-INR Sent. hb 10:36 Troponin HS Sent. hb 10:58 XRAY Chest (1 view) In Process Unspecified. EDMS 12:41 Thorax Wo Con In Process Unspecified. EDMS 12:57 DD Sent. kj2 13:43 Surendra Ng MD is Hospitalizing Provider. sb4 16:30 No provider procedures requiring assistance completed. Patient admitted, IV remains in kj2 place. Administered Medications: No medications were administered Medication: 10:34 VIS not applicable for this client. hb Outcome: 13:44 Decision to Hospitalize by Provider. sb4 16:30 Admitted to [facility] 16:30 Condition: stable 16:30 Instructed on the need for admit, 16:30 Patient left the ED. 2 Signatures: Dispatcher [employer] EDKathrin Gregory, RN RN Kell Hale RN RN ll1 Jaimie Hughes, PATorrie PATorrie sb4 Dinah Mcgowan RN RN kj2 Mauro Ca 2 Mildred Dela Cruz am7 Corrections: (The following items were deleted from the chart) 10:25 10:22 Pulse 68bpm; Resp 24bpm; Pulse Ox 99% RA; ll1 ll1 10:29 10:22 BP 156 / 83; Pulse 68bpm; Resp 24bpm; Pulse Ox 99% RA; Temp 97.6F; ll1 ll1
--- NOTE | 2024-08-22 13:44 | EDPHYS ---
Physician Documentation [facility] Name: Alessandra Suarez Age: 68 yrs Sex: Female : 1955 Arrival Date: 08/22/2024 Time: 10:11 Bed 19 Private MD: ED Physician Grey Garcia HPI: 08/22 10:27 This 68 yrs old Female presents to ER via Wheelchair with complaints of Shortness Of sb4 Breath, Palpitations. 10:28 shortness of breath, palpitations, and dizziness on exertion x 2 days. improves with sb4 rest. no nausea, vomiting, diarrhea, fever, chills. . Historical: - Allergies: 10:22 Codeine; ll1 10:22 Darvon; ll1 10:22 Demerol; ll1 10:22 Losartan; ll1 10:22 Phenergan; ll1 10:22 SHELLFISH; ll1 10:22 Stadol; ll1 10:22 Sulfa (Sulfonamide Antibiotics); ll1 10:22 Talwin; ll1 10:22 teramycin; ll1 10:22 Peanut; ll1 10:29 Bees; ll1 10:29 Nickel; ll1 10:29 Morphine; ll1 - PMHx: 10:22 Anxiety; Hypertension; ll1 - PSHx: 10:22 L knee replacement; ll1 - Immunization history:: Adult Immunizations up to date. - Infectious Disease History:: Denies. - Social history:: Smoking status: Patient denies any tobacco usage or history of. ROS: 10:28 Constitutional: Negative for fever, chills, and weight loss, sb4 10:28 Cardiovascular: Positive for palpitations, 10:28 Neuro: Positive for dizziness, 10:28 All other systems are negative, Exam: 10:30 Head/Face: Normocephalic, atraumatic. Eyes: Extra-ocular motions intact. Periorbital sb4 areas with no swelling, redness, or edema. ENT: Mucous membranes moist. Cardiovascular: Regular rate and rhythm with a normal S1 and S2. Respiratory: No increased work of breathing, no retractions or nasal flaring. Abdomen/GI: Soft, non-tender, no distension. Skin: Warm, dry with normal turgor. Normal color with no rashes, no lesions, and no evidence of cellulitis. 10:30 Constitutional: The patient appears in no acute distress, alert, awake, anxious, obese, Vital Signs: 10:22 BP 156 / 83; Pulse 68; Resp 24; Pulse Ox 99% on R/A; ll1 10:28 Temp 98; Weight 129.27 kg; Height 5 ft. 10 in. ; ll1 12:02 BP 156 / 86; Pulse 74; Resp 19; Pulse Ox 100% on R/A; hb 13:03 BP 149 / 75; Pulse 70; Resp 18; Pulse Ox 98% on R/A; kj2 10:28 Body Mass Index 40.89 (129.27 kg, 177.8 cm) ll1 MDM: 10:17 Medical Screening Exam initiated sb4 13:43 Data reviewed: vital signs, nurses notes, lab test result(s), EKG, radiologic studies, sb4 I have discussed the patient's presentation/case with the attending Emergency Department Physician; and as a result, I will admit patient. Consideration of Admission/Observation Patient was admitted/placed on observation. Care significantly affected by the following chronic conditions: Hypertension, Obesity. Counseling: I had a detailed discussion with the patient and/or guardian regarding the historical points, exam findings, and any diagnostic results supporting the discharge/admit diagnosis, the presence of at least one elevated blood pressure reading (>120/80) during this emergency department visit, lab results, radiology results, the need for further work-up and treatment in the hospital. 08/22 10:25 Order name: Basic Metabolic Panel; Complete Time: :38 sb4 08/22 10:25 Order name: CBC with Diff; Complete Time: 11: sb4 08/22 10:25 Order name: LFT's; Complete Time: 11:38 sb4 08/22 10:25 Order name: Magnesium; Complete Time: 11:38 sb4 08/22 10:25 Order name: NT PRO-BNP; Complete Time: 11:38 sb4 08/22 10:25 Order name: PT-INR; Complete Time: 11:11 sb4 08/22 10:25 Order name: Troponin HS; Complete Time: 11:38 sb4 08/22 12:29 Order name: DD; Complete Time: 13:28 sb4 08/22 13:04 Order name: Add On-Lab sb4 08/22 14:12 Order name: TSH; Complete Time: 15:17 sb4 08/22 15:15 Order name: T4 Free; Complete Time: 15:17 EDMS 08/22 10:25 Order name: XRAY Chest (1 view); Complete Time: 11:21 sb4 08/22 12:30 Order name: Thorax Wo Con; Complete Time: 12:57 EDMS 08/22 10:25 Order name: Cardiac monitoring; Complete Time: 10:33 sb4 08/22 10:25 Order name: EKG - Nurse/Tech; Complete Time: 10:33 sb4 08/22 10:25 Order name: IV Saline Lock; Complete Time: 10:36 sb4 08/22 10:25 Order name: Labs collected and sent; Complete Time: 10:36 sb4 08/22 10:25 Order name: O2 Per Protocol; Complete Time: 10:33 sb4 08/22 10:25 Order name: O2 Sat Monitoring; Complete Time: 10:33 sb4 EC:33 Rate is 59 beats/min. Rhythm is regular, Sinus bradycardia. ND interval is normal at sb4 164 msec. QRS interval is normal at 98 msec. QT interval is normal at 438 msec. No Q waves. T waves are Normal. No ST changes noted. Clinical impression: No evidence of ischemia. Interpreted by me. Reviewed by me. Administered Medications: No medications were administered Disposition Summary: 08/22/24 13:44 Hospitalization Ordered Notes: Hospitalization Status: Observation sb4 Provider: Surendra Ng [facility] Condition: Fair sb4 Problem: new sb4 Symptoms: are unchanged sb4 Bed/Room Type: Standard sb4 Room Assignment: 211(08/22/24 14:54) sp Diagnosis - Chest pain, unspecified sb4 - Palpitations sb4 Forms: - Medication Reconciliation Form sb4 - SBAR form sb4 - Leadership Thank You Letter sb4 Addendum: 08/24/2024 14:49 Co-signature as Attending Physician, Grey Garcia MD I agree with the assessment and c kitchen plan of care. Signatures: Dispatcher [employer] Grey Wade MD MD cha Pinkerton, Shawna sp Baxter, Heather, RN RN hb Lewis, Lynsay, RN RN ll1 Jaimie Hughes PA-C PA-C sb4 Corrections: (The following items were deleted from the chart) 08/22 10:25 10:25 BASIC METABOLIC PANEL+C.LAB.BRZ ordered. EDMS EDMS 10:25 10:25 CBC+H.LAB.BRZ ordered. EDMS EDMS 10:25 10:25 HEPATIC FUNCTION+C.LAB.BRZ ordered. EDMS EDMS 10:25 10:25 MAGNESIUM+C.LAB.BRZ ordered. EDMS EDMS 10:25 10:25 PROBNP+C.LAB.BRZ ordered. EDMS EDMS 10:25 10:25 PROTIME (+INR)+COAG.LAB.BRZ ordered. EDMS EDMS 10:25 10:25 Troponin High Sensitivity+C.LAB.BRZ ordered. EDMS EDMS 10:26 10:25 Chest Single View+RAD.RAD.BRZ ordered. EDMS EDMS 11:49 11:49 Chest For PE Angio+CT.RAD.BRZ ordered. EDMS EDMS 11:57 11:40 Thorax W/ Con+CT.RAD.BRZ ordered. EDMS EDMS 14:54 13:44 sb4 sp
[2024-08-22 15:02] LABS: Thyroid Stimulating Hormone 5.24 uIU/mL (0.358-3.740)
[2024-08-22 16:50] VITALS: TEMP 98
[2024-08-22 16:54] VITALS: BP 149/75; O2SAT 98
--- NOTE | 2024-08-22 17:35 | P.SSS ---
Patient History Date of Service: 08/22/24 Reason for admission: PALPITATIONS History of Present Illness: INDIRA HAS HAD FULL CARDIAC VALENCIA AT [facility] ABOUT 9 MTHS AGO. SHE COMES WITH FLUTTERING IN THE CHEST WHEN SHE WALKS. THERE IS NO CHEST PAIN. SHE HAS CPAP AND SHE GETS THIS AFTER SHE HAS CPAP ON FOR ABOUT 3 HOURS. SHE IS STABLE. HAS CHRONIC ISSUES AND CAN GO HOME. Allergies butorphanol tartrate [From Stadol] Allergy (Verified 04/30/24 13:39) Anaphylaxis codeine Allergy (Verified 04/30/24 13:39) Severe headache and vomiting meperidine HCl [From Demerol] Allergy (Verified 04/30/24 13:39) Unknown morphine Allergy (Verified 04/30/24 13:39) Anaphylaxis nickel Allergy (Verified 04/30/24 13:39) Unknown oxytetracycline [From Terramycin] Allergy (Verified 04/30/24 13:39) vomiting oxytetracycline HCl [From Terramycin] Allergy (Verified 04/30/24 13:39) vomiting peanut Allergy (Verified 04/30/24 13:39) Anaphylaxis pentazocine [From Talwin] Allergy (Verified 04/30/24 13:39) unknown promethazine [From Phenergan] Allergy (Verified 04/30/24 13:39) Anaphylaxis propoxyphene HCl [From Darvon] Allergy (Verified 04/30/24 13:39) Anaphylaxis shellfish derived Allergy (Verified 04/30/24 13:39) Anaphylaxis Sulfa (Sulfonamide Antibiotics) Allergy (Verified 04/30/24 13:39) Unknown Bees Allergy (Uncoded 04/30/24 13:39) Anaphylaxis Home Medications: clonazePAM [Clonazepam] 0.5 mg PO BIDP PRN 05/24/19 Nifedipine [Nifedipine ER] 30 mg PO BEDTIME 05/22/23 nadoloL [Corgard] 40 mg PO DAILY 05/22/23 Sertraline [Zoloft*] 25 mg PO NOON 04/30/24 Pantoprazole Sodium 40 mg PO DAILY #30 gran 08/22/24 - Past Medical/Surgical History Diabetic: No -: HTN -: Sleep apnea -: c section -: lumpectomy both breast -: toe sx Psychosocial/ Personal History: Patient lives with her at home - Family History Father -: Heart disease, Cancer Mother -: Hypertension, Cancer - Social History Alcohol use: No CD- Drugs: No Caffeine use: No Review of Systems 10-point ROS is otherwise unremarkable General: Weakness Physical Examination - Vital Signs Temperature: 98 F Blood Pressure: 149/75 Pulse: 70 Respirations: 18 - Physical Exam General: Mild distress, Obese HEENT: Atraumatic, PERRLA, Mucous membr. moist/pink, EOMI, Sclerae nonicteric Neck: Supple, 2+ carotid pulse no bruit, No LAD, Without JVD or thyroid abnormality Respiratory: Clear to auscultation bilaterally, Normal air movement Cardiovascular: Regular rate/rhythm, Normal S1 S2 Gastrointestinal: Normal bowel sounds, No tenderness Musculoskeletal: No tenderness Integumentary: No rashes Neurological: Normal gait, Normal speech, Normal strength at 5/5 x4 extr, Normal tone, Normal affect Lymphatics: No axilla or inguinal lymphadenopathy - Studies Laboratory Data (last 24 hrs) 08/22/24 08/22/24 08/22/24 10:30 10:30 10:30 WBC 5.70 Hgb 13.7 Hct 40.4 Plt Count 357 PT 12.0 INR 1.06 Sodium 138 Potassium 3.9 BUN 13 Creatinine 0.74 Glucose 112 H Magnesium 2.4 Total Bilirubin 0.5 AST 19 ALT 37 Alkaline Phosphatase 109 - Diagnosis (Problem(s)) (1) Abnormal sensation of thorax Current Visit: Yes Status: Chronic Plan: SHE DESCRIBES THIS BUBBLES IN THE CHEST LIKE YOU MAKE BUBBLES IN CHILDHOOD, MAKES HER BURP AND HAPPENS AFTER CPAP IS ON. SHE MAY BE INHALING AIR AND CREATING A SENSATION LIKE HIATAL HERNIA. SHE HAS NO CHEST PAIN. SHE HAD FULL CARDIAC WORK UP THAT WAS NEGATIVE. SHE IS STABLE TO GO HOME AND FU AT OFFICE IN ONE WEEK. HER EKG IS NORMAL. CE ARE NORMAL. SHE IS ON ANXIOUS SIDE FOR LONG DURATION AND IS ON MEDS FOR IT. I ADDED PANTOPRAZOLE AND I WILL GET HER TO TAKE PROBIOTIC DAILY. - Disposition Disposition: ROUTINE DISCHARGE Condition: FAIR
== END 2024-08-22 18:22 | disposition home or self-care (01) ==
LOC: ER 10:11 → ERHOLD 14:15 → 2ND 15:42
PROVIDERS: ADMIT Internal Medicine; ATTEND Internal Medicine
DX: R00.2 Palpitations (principal); F41.9 Anxiety disorder, unspecified; I10 Essential (primary) hypertension; Z88.5 Allergy status to narcotic agent; Z88.2 Allergy status to sulfonamides; Z88.8 Allergy status to other drugs, medicaments and biological substances; Z91.030 Bee allergy status; Z91.010 Allergy to peanuts; Z91.013 Allergy to seafood; Z99.89 Dependence on other enabling machines and devices
CPT/HCPCS: 93005; 85025; 80048; 36415; 83735; 85610; 85379; 80076; 84443; 84484; 84439; 83880; 71250; 71045; G0378 ×3; 99285